=== PATIENT | female | born 1950 | race Caucasian/White ===

== ENCOUNTER 2016-05-27 20:07 | Inpatient (IN) ==
[2016-05-27 22:54] LABS: Basophils % 0.3 %; Eosinophils % 0.1 %; Hematocrit 44.5 % (35.3-44.9); Immature Granulocytes % 0.4 % (0-4); Immature Platelets 3.4 % (1.1-6.1); Lymphocytes # 0.6 K/mcL (0.6-4.6); Lymphocytes % 5.7 %; Mean Corpuscular HGB Conc 33.7 g/dL (31.6-35.5); Mean Corpuscular Hemoglobin 30.5 pg (28.0-33.3); Mean Corpuscular Volume 90.4 fL (83.0-100.0); Mean Platelet Volume 9.8 fL (9.4-12.4); Monocytes # 0.7 K/mcL (0.0-1.3); Monocytes % 6.4 %; Neutrophils # 9.4 K/mcL (1.6-8.9); Platelet Count 189 K/mcL (140-400); Red Blood Count 4.92 M/mcL (3.82-4.97); Red Cell Distribution Width 12.6 % (11.5-14.5); Segmented Neutrophils % 87.1 %
[2016-05-27 23:09] LABS: Alanine Aminotransferase 9 Units/L (0-55); Albumin 3.9 g/dL (3.5-5.0); Albumin/Globulin Ratio 1.1 (1.1-2.2); Alkaline Phosphatase 73 Units/L (38-126); Amylase 63 Units/L (25-125); Aspartate Amino Transferase 16 Units/L (5-34); BUN/Creatinine Ratio 28 (6-26); Bilirubin,Direct 0.5 mg/dL (0.0-0.5); Bilirubin,Total 1.5 mg/dL (0.2-1.2); Blood Urea Nitrogen 24 mg/dL (7-20); Calcium 10.4 mg/dL (8.6-10.8); Carbon Dioxide 26 mEq/L (19-29); Chloride 101 mEq/L (98-109); Globulin 3.4 g/dL (2.4-3.5); Glucose 136 mg/dL (70-99); Lipase 18 Units/L (8-78); Osmolality,Calculated 296 (280-300); Potassium 3.4 mEq/L (3.5-4.5); Sodium 140 mEq/L (136-145); Total Protein 7.3 g/dL (6.0-8.3); eGFR For African Americans > 60 (> 60); eGFR For Non-African Americans > 60 (> 60)
[2016-05-27 23:22] LABS: Bilirubin,Urine Moderate (Negative); Blood,Urine Negative (Negative); Clarity,Urine Cloudy (Clear); Color,Urine Dark Yellow (Yellow); Glucose,Urine (UA) Normal (Normal); Ketones,Urine 80 mg/dL (Negative); Leukocyte Esterase,Urine Moderate (Negative); Nitrite,Urine Negative (Negative); PH,Urine 6.5 pH Units (5.0-8.0); Protein,Urine 30 mg/dL (Neg-Trace); Specific Gravity,Urine > 1.030 (1.010-1.025); Urobilinogen,Urine Normal (Normal)
[2016-05-27 23:23] LABS: Bacteria,Urine None Seen per hpf (None-Few); Hyaline Casts,Urine Moderate per lpf (None-Few); Squamous Epithelial Cell,Urine Many per lpf (None-Few); WBC,Urine 30-50 per hpf (0-3)
[2016-05-27] MEDS ORDERED: *HR* Morphine 2 MG/ML SYRINGE IVP PRN (23:37)
[2016-05-27] MEDS ORDERED: Ondansetron 4 MG/2 ML VIAL IVP ONE (23:37)
[2016-05-27] MEDS ORDERED: 0.9 % Sodium Chloride 1,000 ML IVC ONE (23:37)
--- NOTE | 2016-05-27 23:41 | Emergency Department Note ---
Disposition Clinical Impression: Peristomal hernia, Small bowel obstruction Pulmonary embolism Qualifiers: Pulmonary embolism type: other Chronicity: unspecified Acute cor pulmonale presence: without acute cor pulmonale Qualified Code(s): I26.99 - Other pulmonary embolism without acute cor pulmonale Disposition: Admitted As Inpatient Condition: Fair Referrals: NO,PCP [Primary Care Provider] - Forms: Work/School Release, ED Satisfaction Letter Time of Disposition: 00:59 Abdominal Pain HPI - General Chief Complaint: ED Abdominal Pain Stated Complaint: abd pain, vomiting, no output from colostomy Time Seen by Provider: 05/27/16 23:24 Source: patient, family Nursing Notes Reviewed: Yes Vital Signs Reviewed: Yes - History of Present Illness HPI Narrative: 65-year-old nontoxic-appearing female presents for chief complaint of abdominal pain, nausea, and vomiting. The patient states symptoms began approximately 24 hours ago and has progressed in severity since. She states that she recently underwent a peristomal hernia repair by Dr. Rice 19 days ago. She states that along with the abdominal pain, nausea, and vomiting, she has had no output from her ostomy over the course of the past 24 hours. She does state that she has had a decreased oral intake. She states "I think I may be dehydrated". She complains of fever up to 101 degrees Fahrenheit. She rates her pain a 9 out of 10 on a 10 point scale and describes it as sharp in nature. This pain is localized to the area around her stoma. She also complains of abdominal swelling and distention to the area immediately surrounding her stoma. Pt Subjective Complaint: abdominal pain Onset (ago): hour(s) (24 hours ago) Consistency: constant Location: LLQ Pain Severity: severe Pain Scale: 9 Quality: cramping Radiation: none Migration to: no migration Improves with: nothing Worsens with: nothing Context: recent surgery/procedure Associated symptoms: Reports: nausea, vomiting, fever. Denies: diarrhea - Related Data Home Medications Medication Instructions Recorded Confirmed Acetaminophen [Tylenol] 1,000 mg PO Q6HR PRN 05/08/16 05/08/16 Atenolol [Tenormin] 50 mg PO DAILY 05/08/16 05/08/16 Ergocalciferol (VITAMIN D2) 50,000 unit PO TH 05/08/16 05/08/16 [Vitamin D2] Levothyroxine [Synthroid] 150 mcg PO DAILY 05/08/16 05/08/16 Lisinopril [Zestril] 10 mg PO DAILY 05/08/16 05/08/16 Pantoprazole Sodium [Protonix] 40 mg PO DAILY 05/08/16 05/08/16 Tramadol HCl [Ultram] 100 mg PO QID PRN 05/08/16 05/08/16 Previous Rx's Medication Instructions Recorded Docusate [Colace] 100 mg PO BID #30 capsule 05/09/16 HYDROcodone/Acet 5/325 mg [[place] 1 tab PO Q4H PRN #30 tab 05/09/16 5-325 mg] Allergies Allergy/AdvReac Type Severity Reaction Status Date / Time No Known Allergies Allergy Verified 05/08/16 11:03 Constitutional: Reports: as per HPI, fever. Denies: chills, weakness, weight change Eyes: Denies: eye pain, eye discharge, vision change ENT ED: Denies: ear pain, throat pain, dental pain, hearing loss, epistaxis, congestion, dysphagia Cardiovascular: Denies: chest pain, palpitations, dyspnea on exertion, edema, syncope Respiratory: Denies: cough, dyspnea, wheezes, hemoptysis, stridor Gastrointestinal: Reports: as per HPI, abdominal pain, nausea, vomiting. Denies : diarrhea, constipation, hematemesis, melena, hematochezia Genitourinary: Denies: dysuria, frequency, hematuria, discharge Musculoskeletal: Denies: back pain, neck pain, arthralgia, myalgia Integumentary: Denies: rash, abrasion, lesions Neurological: Denies: headache, weakness, numbness, paresthesias, confusion, abnormal gait, vertigo Psychiatric: Denies: anxiety, depression, suicidal thoughts, homicidal thoughts , auditory hallucinations, visual hallucinations Endocrine: Denies: fatigue Hematological/Lymphatic: Denies: easy bleeding, easy bruising Allergic/Immunologic: Denies: facial swelling, urticaria Abdominal Pain PMH - Past Medical History Medical history: Reports: cancer, hypertension Female Surgical History: Reports: colostomy, herniorrhaphy Psychiatric history: Reports: no psych history - Social History Smoking status: Never smoker Alcohol use: Reports: none Drug use: Reports: none Physical Exam - General Limitations: no limitations General appearance: alert, in no apparent distress - Head Head exam: atraumatic, normocephalic, normal inspection - Eye Eye exam: Present: normal appearance, PERRL, EOMI. Absent: nystagmus - ENT ENT exam: mucous membranes dry - Neck Neck exam: Present: normal inspection, full ROM, trachea midline - Chest Chest inspection: Present: normal inspection, symmetric chest wall rise - Respiratory Respiratory exam: Present: normal lung sounds bilaterally. Absent: respiratory distress, wheezes, stridor, accessory muscle use, prolonged expiratory phase - Cardiovascular Cardiovascular exam: Present: regular rate, normal rhythm, normal heart sounds - Abdominal Exam Abdominal exam: Present: soft, tenderness, distention (Moderate Abdominal distention noted to the left lower quadrant, surrounding and underlying the area of her colostomy), diminished bowel sounds. Absent: guarding, rebound, rigidity Abdominal tenderness: Present: LLQ - Extremities Exam Extremities exam: Present: normal inspection, full ROM. Absent: tenderness, pedal edema - Neurological Exam Neurological exam: Present: alert, oriented X3 - Psychiatric Psychiatric exam: Present: normal affect, normal mood - Skin Skin exam: Present: warm, dry, intact, normal color. Absent: rash, cyanosis, diaphoresis, erythema, pallor, mottled Course - Reevaluation(s) Reevaluation #1: I discussed this patient's case with Dr. Franco, general surgeon home demonstration agent. Dr. Franco recommends a placement of a nasogastric tube, the administration of weight dosed IV heparin, and admission to the hospitalist service. Time: 00:53 Vital Signs Temperature 97.9 F 05/27/16 20:10 Pulse Rate 108 05/27/16 20:10 Respiratory Rate 18 05/27/16 20:10 Blood Pressure 117/80 05/27/16 20:10 O2 Sat by Pulse Oximetry 98 05/27/16 20:10 Temperature 99.4 F 05/28/16 00:51 Pulse Rate 82 05/28/16 00:51 Respiratory Rate 16 05/28/16 00:51 Blood Pressure 154/82 05/28/16 00:51 O2 Sat by Pulse Oximetry 97 05/28/16 00:51 Oxygen Delivery Oxygen Delivery Room Air Abdominal Pain - Medical Records Medical records reviewed: Yes I reviewed the patient's medical records. - Lab Data Lab results reviewed: Yes I reviewed the patient's lab results. Lab results narrative: Laboratory Last Values WBC 10.8 K/mcL (4.3-11.1) 05/27/16 22:37 RBC 4.92 M/mcL (3.82-4.97) 05/27/16 22:37 Hgb 15.0 g/dL (11.5-15.4) 05/27/16 22:37 Hct 44.5 % (35.3-44.9) 05/27/16 22:37 MCV 90.4 fL (83.0-100.0) 05/27/16 22:37 MCH 30.5 pg (28.0-33.3) 05/27/16 22:37 MCHC 33.7 g/dL (31.6-35.5) 05/27/16 22:37 RDW 12.6 % (11.5-14.5) 05/27/16 22:37 Plt Count 189 K/mcL (140-400) 05/27/16 22:37 MPV 9.8 fL (9.4-12.4) 05/27/16 22:37 Immature Gran % 0.4 % (0-4) 05/27/16 22:37 Seg Neutrophils % 87.1 % 05/27/16 22:37 Lymphocytes % 5.7 % 05/27/16 22:37 Monocytes % 6.4 % 05/27/16 22:37 Eosinophils % 0.1 % 05/27/16 22:37 Basophils % 0.3 % 05/27/16 22:37 Neutrophils # 9.4 K/mcL (1.6-8.9) H 05/27/16 22:37 Lymphocytes # 0.6 K/mcL (0.6-4.6) 05/27/16 22:37 Monocytes # 0.7 K/mcL (0.0-1.3) 05/27/16 22:37 Eosinophils # 0.0 K/mcL (0.0-0.6) 05/27/16 22:37 Basophils # 0.0 K/mcL (0.0-0.2) 05/27/16 22:37 Immature Plt Fraction 3.4 % (1.1-6.1) 05/27/16 22:37 Sodium 140 mEq/L (136-145) 05/27/16 22:37 Potassium 3.4 mEq/L (3.5-4.5) L 05/27/16 22:37 Chloride 101 mEq/L (98-109) 05/27/16 22:37 Carbon Dioxide 26 mEq/L (19-29) 05/27/16 22:37 BUN 24 mg/dL (7-20) H 05/27/16 22:37 Creatinine 0.86 mg/dL (0.57-1.11) 05/27/16 22:37 Est GFR ( Amer) > 60 (> 60) 05/27/16 22:37 Est GFR (Non-Af Amer) > 60 (> 60) 05/27/16 22:37 BUN/Creatinine Ratio 28 (6-26) H 05/27/16 22:37 Glucose 136 mg/dL (70-99) H 05/27/16 22:37 Calculated Osmolality 296 (280-300) 05/27/16 22:37 Calcium 10.4 mg/dL (8.6-10.8) 05/27/16 22:37 Total Bilirubin 1.5 mg/dL (0.2-1.2) H 05/27/16 22:37 Direct Bilirubin 0.5 mg/dL (0.0-0.5) 05/27/16 22:37 Indirect Bilirubin 1.0 mg/dL (0.0-1.2) 05/27/16 22:37 AST 16 Units/L (5-34) 05/27/16 22:37 ALT 9 Units/L (0-55) 05/27/16 22:37 Alkaline Phosphatase 73 Units/L (38-126) 05/27/16 22:37 Serum Total Protein 7.3 g/dL (6.0-8.3) 05/27/16 22:37 Albumin 3.9 g/dL (3.5-5.0) 05/27/16 22:37 Globulin 3.4 g/dL (2.4-3.5) 05/27/16 22:37 Albumin/Globulin Ratio 1.1 (1.1-2.2) 05/27/16 22:37 Amylase 63 Units/L (25-125) 05/27/16 22:37 Lipase 18 Units/L (8-78) 05/27/16 22:37 Urine Color Dark Yellow (Yellow) 05/27/16 23:13 Urine Clarity Cloudy (Clear) A 05/27/16 23:13 Urine pH 6.5 pH Units (5.0-8.0) 05/27/16 23:13 Ur Specific [place] > 1.030 (1.010-1.025) H 05/27/16 23:13 Urine Protein 30 mg/dL (Neg-Trace) H 05/27/16 23:13 Urine Glucose (UA) Normal mg/dL (Normal) 05/27/16 23:13 Urine Ketones 80 mg/dL (Negative) H 05/27/16 23:13 Urine Blood Negative (Negative) 05/27/16 23:13 Urine Nitrite Negative (Negative) 05/27/16 23:13 Urine Bilirubin Moderate (Negative) H 05/27/16 23:13 Urine Urobilinogen Normal mg/dL (Normal) 05/27/16 23:13 Ur Leukocyte Esterase Moderate (Negative) H 05/27/16 23:13 Urine Microscopic RBC 3-5 per hpf (0-3) H 05/27/16 23:13 Urine Microscopic WBC 30-50 per hpf (0-3) H 05/27/16 23:13 Ur Squamous Epith Cells Many per lpf (None-Few) H 05/27/16 23:13 Urine Bacteria None Seen per hpf (None-Few) 05/27/16 23:13 Hyaline Casts Moderate per lpf (None-Few) H 05/27/16 23:13 Result diagrams: 05/27/16 22:37 05/27/16 22:37 Lab Results 05/27/16 05/27/16 05/27/16 Range/Units 22:37 22:37 23:13 WBC 10.8 (4.3-11.1) K/mcL RBC 4.92 (3.82-4.97) M/mcL Hgb 15.0 (11.5-15.4) g/dL Hct 44.5 (35.3-44.9) % MCV 90.4 (83.0-100.0) fL MCH 30.5 (28.0-33.3) pg MCHC 33.7 (31.6-35.5) g/dL RDW 12.6 (11.5-14.5) % Plt Count 189 (140-400) K/mcL MPV 9.8 (9.4-12.4) fL Immature Gran % 0.4 (0-4) % Seg Neutrophils % 87.1 % Lymphocytes % 5.7 % Monocytes % 6.4 % Eosinophils % 0.1 % Basophils % 0.3 % Neutrophils # 9.4 H (1.6-8.9) K/mcL Lymphocytes # 0.6 (0.6-4.6) K/mcL Monocytes # 0.7 (0.0-1.3) K/mcL Eosinophils # 0.0 (0.0-0.6) K/mcL Basophils # 0.0 (0.0-0.2) K/mcL Immature Plt Fraction 3.4 (1.1-6.1) % Sodium 140 (136-145) mEq/L Potassium 3.4 L (3.5-4.5) mEq/L Chloride 101 (98-109) mEq/L Carbon Dioxide 26 (19-29) mEq/L BUN 24 H (7-20) mg/dL Creatinine 0.86 (0.57-1.11) mg/dL Est GFR ( Amer) > 60 (> 60) Est GFR (Non-Af Amer) > 60 (> 60) BUN/Creatinine Ratio 28 H (6-26) Glucose 136 H (70-99) mg/dL Calculated Osmolality 296 (280-300) Calcium 10.4 (8.6-10.8) mg/dL Total Bilirubin 1.5 H (0.2-1.2) mg/dL Direct Bilirubin 0.5 (0.0-0.5) mg/dL Indirect Bilirubin 1.0 (0.0-1.2) mg/dL AST 16 (5-34) Units/L ALT 9 (0-55) Units/L Alkaline Phosphatase 73 (38-126) Units/L Serum Total Protein 7.3 (6.0-8.3) g/dL Albumin 3.9 (3.5-5.0) g/dL Globulin 3.4 (2.4-3.5) g/dL Albumin/Globulin Ratio 1.1 (1.1-2.2) Amylase 63 (25-125) Units/L Lipase 18 (8-78) Units/L Urine Color Dark Yellow (Yellow) Urine Clarity Cloudy A (Clear) Urine pH 6.5 (5.0-8.0) pH Units Ur Specific [place] > 1.030 H (1.010-1.025) Urine Protein 30 H (Neg-Trace) mg/dL Urine Glucose (UA) Normal (Normal) mg/dL Urine Ketones 80 H (Negative) mg/dL Urine Blood Negative (Negative) Urine Nitrite Negative (Negative) Urine Bilirubin Moderate H (Negative) Urine Urobilinogen Normal (Normal) mg/dL Ur Leukocyte Esterase Moderate H (Negative) Urine Microscopic RBC 3-5 H (0-3) per hpf Urine Microscopic WBC 30-50 H (0-3) per hpf Ur Squamous Epith Cells Many H (None-Few) per lpf Urine Bacteria None Seen (None-Few) per hpf Hyaline Casts Moderate H (None-Few) per lpf - Radiology Data Radiology results reviewed: Yes I reviewed the patient's radiology results. Abdomen/Pelvis CT 05/27/16 23:37 IMPRESSION: 1. Small bowel obstruction with the transition point in a parastomal hernia. Fluid in the hernia sac may indicate strangulation. 2. Right lower lobe pulmonary embolus, likely acute or very recent. 3. Coronary artery disease. 4. Thickening of the distal esophagus suggests esophagitis. Critical results were called by Dr. Jacob Jett MD to Miguel Noe on 05/28/2016 at 00:31. D/ / Jacob Jett MD / Jacob Jett MD Interpreting Provider: Jacob Jett MD
[2016-05-28] MEDS ORDERED: Tetracaine/Benzocaine/Butamben 200MG/SPRAY (100SPY/BOT) ONE (01:16)
[2016-05-28] MEDS ORDERED: *HR* Heparin 5,000 UNIT/ML VIAL IVP PRN ×2 (01:32)
[2016-05-28] MEDS ORDERED: *HR* Heparin 5,000 UNIT/ML VIAL IVP ONE (01:32)
[2016-05-28] MEDS ORDERED: *HR* HYDROmorphone (PF) 1 MG/ML SYRINGE IVP ONE (01:43)
[2016-05-28] MEDS ORDERED: Heparin 25,000 UNIT/500 ML D5W 25,000 UNIT/500 ML MLS IVC SCH (01:45)
[2016-05-28] MEDS ORDERED: *HR* HYDROcodone/Acet 5/325 mg TABLET PO PRN (02:33)
[2016-05-28] MEDS ORDERED: Potassium Chloride 40 MEQ, Lidocaine 1% 2 ML in D5% in Water 500 ML IVPB ONE (02:33)
[2016-05-28] MEDS ORDERED: Acetaminophen 325 MG TABLET PO PRN (02:33)
[2016-05-28] MEDS ORDERED: Naloxone 0.4 MG/ML INJ IVP PRN (02:33)
[2016-05-28] MEDS ORDERED: Ipratropium/Albuterol Neb 3 ML IH PRN (02:33)
[2016-05-28] MEDS ORDERED: Acetaminophen 650 MG RECTAL SUPP RC PRN (02:46)
[2016-05-28] MEDS ORDERED: *HR* Metoprolol 5 MG/5 ML VIAL IVP PRN (02:48)
--- NOTE | 2016-05-28 03:05 | Internal Med History&Physical ---
Date of Encounter: 05/28/16 Internal Medicine - H&P: HPI History of present illness: Ms. Rivers is a 65 year old female Past Med Surg Social Fam HX - Past Medical History Medical history: cancer, hypertension Psychiatric history: no psych history - Past Surgical History Surgical History: colostomy, hysterectomy - Social History Smoking Status: Never smoker Alcohol use: none Drug use: none Internal Medicine - H&P: Meds Acetaminophen [Tylenol] 1,000 mg PO Q6HR PRN 05/08/16 [History] Atenolol [Tenormin] 50 mg PO DAILY 05/08/16 [History] Ergocalciferol (VITAMIN D2) [Vitamin D2] 50,000 unit PO TH 05/08/16 [History] Levothyroxine [Synthroid] 150 mcg PO DAILY 05/08/16 [History] Lisinopril [Zestril] 10 mg PO DAILY 05/08/16 [History] Pantoprazole Sodium [Protonix] 40 mg PO DAILY 05/08/16 [History] Tramadol HCl [Ultram] 100 mg PO QID PRN 05/08/16 [History] Docusate [Colace] 100 mg PO BID #30 capsule 05/09/16 [Rx] HYDROcodone/Acet 5/325 mg [[place] 5-325 mg] 1 tab PO Q4H PRN #30 tab 05/09/16 [Rx ] Allergies No Known Allergies Allergy (Verified 05/08/16 11:03) All Systems PM: A 10-system review of systems was performed and is negative for pertinent findings except as documented above in the HPI. - Constitutional Vitals: Temp Pulse Resp BP Pulse Ox 99.4 F 82 16 133/91 97 05/28/16 00:51 05/28/16 00:51 05/28/16 02:56 05/28/16 02:56 05/28/16 00:51 Internal Med - H&P Results - Labs CBC & Chem 7: 05/27/16 22:37 05/27/16 22:37
[2016-05-28 03:16] LABS: INR 1.2; Prothrombin Time 12.9 Seconds (9.4-12.1)
[2016-05-28 03:18] LABS: Activated Partial Thrombo Time 30.4 Seconds (26.0-36.0)
--- NOTE | 2016-05-28 03:28 | Internal Med History&Physical ---
<Will Hurley - Last Filed: 05/28/16 03:37> Date of Encounter: 05/28/16 Time of Encounter: 02:30 Assessment and Plan (1) Postoperative intestinal obstruction Current visit: Yes Status: Acute As seen CT, obstruction seen at transition point of parastomal hernia Will consult surgery, appreciate management of post-op obstruction Support while NPO with maintenance IVF, analgesics, anti-emetics, and NGT Start prophylactic antibiotics with Cipro/Flagyl for enteric coverage (2) Pulmonary embolism Current visit: Yes Status: Acute Confirmed by CTA, which showed acute posterior basal segment right lower lobe PE Patient is hemodynamically stable and not requiring supplemental oxygen to maintenance saturations above 92% Will continue patient on Heparin drip while she is being considered by surgical team This is her second provoked PE/DVT, and 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 prior to discharge Qualifiers: Pulmonary embolism type: other Chronicity: unspecified Acute cor pulmonale presence: without acute cor pulmonale Qualified Code(s): I26.99 - Other pulmonary embolism without acute cor pulmonale (3) Hypokalemia Current visit: Yes Status: Acute Potassium of 3.4 upon admission, likely from GI losses Replace through IV while NPO Recheck BMP along with Mg, Phos in AM (4) Essential hypertension Current visit: No Status: Chronic Blood pressures stable since arrival to ED She does take both Lisinopril and Atenolol at home, which we will transition to IV Metoprolol and Vasotec once she is NPO (5) DVT prophylaxis Current visit: Yes Status: Acute Currently on Heparin ggt for PE Internal Medicine - H&P: HPI Chief complaint: abdominal pain, nausea, vomiting Admitted From: Home Plans for Post Hospital Care: Home History of present illness: Ms. Rivers is a 65 year old female who presents emergency department with abdominal pain, nausea, vomiting. She states that the symptoms have progressively worsened since approximately 24 hours prior to arrival. She states she had sharp left-sided abdominal pain near her colostomy when she first noticed it roughly week ago. She states the pain worsens when she gets up and is relieved with laying down. She also complains of nausea and had 6 episodes of black, nonbloody vomiting and fever of 101. Patient normally does not make any stool and reports no colostomy drainage over the past 24 hours, which is very unusual for her, although her appetite has been poor as of late. She recently had parastomal hernia repair on May 08 and had no complications immediately following surgery. 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 She had a colostomy placed back in 2011 and developed a DVT and PE shortly afterwards and was on Coumadin for a year. Patient currently denies any chest pain, shortness of breath, fever, chills or urinary complaints. Past Med Surg Social Fam HX - Past Medical History Medical history: cancer, hypertension Psychiatric history: no psych history - Past Surgical History Surgical History: colostomy, hysterectomy - Social History Smoking Status: Never smoker Alcohol use: none Drug use: none Internal Medicine - H&P: Meds Acetaminophen [Tylenol] 1,000 mg PO Q6HR PRN 05/08/16 [History] Atenolol [Tenormin] 50 mg PO DAILY 05/08/16 [History] Ergocalciferol (VITAMIN D2) [Vitamin D2] 50,000 unit PO TH 05/08/16 [History] Levothyroxine [Synthroid] 150 mcg PO DAILY 05/08/16 [History] Lisinopril [Zestril] 10 mg PO DAILY 05/08/16 [History] Pantoprazole Sodium [Protonix] 40 mg PO DAILY 05/08/16 [History] Tramadol HCl [Ultram] 100 mg PO QID PRN 05/08/16 [History] Docusate [Colace] 100 mg PO BID #30 capsule 05/09/16 [Rx] Allergies No Known Allergies Allergy (Verified 05/08/16 11:03) All Systems PM: A 10-system review of systems was performed and is negative for pertinent findings except as documented above in the HPI. - Constitutional Constitutional: anorexia, fever(s), no chills, no night sweats - EENT Eyes: no change in vision, no discharge, no pain, no photophobia Ears: no ear discharge, no ear pain, no tinnitus Nose, mouth and throat: no dysphagia, no nasal discharge, no neck pain, no sore throat - Cardiovascular Cardiovascular ROS IM: no chest pain, no diaphoresis, no dyspnea, no lightheadedness, no palpitations, no syncope - Respiratory Respiratory: no cough, no dyspnea, no wheezing, no excessive phlegm production - Gastrointestinal Gastrointestinal: abdominal pain, constipation, nausea, vomiting, no diarrhea, no hematemesis, no hematochezia, no melena - Genitourinary Genitourinary: no change in urinary stream, no dysuria, no flank pain, no hematuria - Musculoskeletal Musculoskeletal ROS IM: no numbness, no tingling - Integumentary Integumentary IM: no rash, no unusual bruising - Neurological Neurological ROS: no confusion, no convulsions, no focal weakness, no numbness, no tingling, no tremor(s) - Hematologic/Lymphatic Hematologic/Lymphatic: no easy bruising - Constitutional Vitals: Temp Pulse Resp BP Pulse Ox 99.4 F 82 16 133/91 97 05/28/16 00:51 05/28/16 00:51 05/28/16 02:56 05/28/16 02:56 05/28/16 00:51 General appearance: Present: cooperative, pleasant, no acute distress, answers questions appropriately - Head Head exam: Present: atraumatic, normocephalic - Eye Eye exam: Present: PERRL, conjuntiva pink, sclera anicteric - Neck Neck exam general surgery: Present: supple, trachea midline. Absent: lymphadenopathy - Respiratory Respiratory exam: Present: CTAB. Absent: accessory muscle use, rales, rhonchi, wheezes - Cardiovascular Cardiovascular exam: Present: RRR, +S1, +S2. Absent: diastolic murmur, gallop, rubs, systolic murmur - GI/Abdominal GI/Abdominal exam: Present: diminished bowel sounds, distended (in LLQ, near colostomy), hernia (parastomal hernia), normal bowel sounds, tenderness ( significant TTP near colostomy and RLQ), no peritoneal signs. Absent: guarding , rigid - Extremities Exam Extremities exam: Present: warm, radial pulses palpable and symetrical. Absent : calf tenderness, cyanotic, pedal edema - Neurological Exam Neurological exam: Present: alert, no focal deficits. Absent: facial droop, speech deficit - Skin Skin exam: Present: dry, intact Internal Med - H&P Results - Labs CBC & Chem 7: 05/27/16 22:37 05/27/16 22:37 <aJ Beebe - Last Filed: 05/29/16 03:08> Internal Medicine - H&P: HPI Admitted From: Home Plans for Post Hospital Care: Home History of present illness: Ms. Rivers is a 65 year old female status post recent parastomal abdominal hernia repair admitted to [facility] via the emergency department when she presents with complaints of acute onset of abdominal pain, nausea, vomiting of bilious emesis, fever of 101` and no output from ostomy over the course of 24 hours. The patient was visited and interviewed and examined. I examined this patient and my medical decision-making was reviewed with the Resident Physician. For this encounter, I have reviewed the documentation, treatment plan, and medical decision making. I agree with the documented findings, disposition and treatment plan as described except to the extent set forth below. Cumulative laboratory and radiographic database was reviewed, considered and discussed. Given the patient's presenting concerns, past medical history, clinical findings and symptoms, she is admitted at this time to undergo further evaluation and disposition. Past Med Surg Social Fam HX - Past Medical History Source: old records reviewed Medical history: cancer, GERD, hypertension, malignancy (Sigmoid colon carcinoma ), thyroid disease (Hypothyroidism) - Past Surgical History Surgical History: cancer surgery, colectomy (Partial colectomy for sigmoid colon cancer.), colostomy, hysterectomy, PEGGY/BSO (1997.), ureteral stent ( Cystoscopy with bilateral retrogrades and bilateral ureteral catheter/stent placements with open-ended ureteral catheters and Montiel catheter placement 2008. ), other (Surgery for twisted bowel 1969 and 1970. Colon resection 1982. Temporary colostomy 1983. Low anterior resection sigmoid colon carcinoma 2008. Resection of terminal ileum and anastomosis with creation of ileostomy 2011. Partial resection of mass 2008. Flexible sigmoidoscopy multiple biopsies 2008.) - Social History Smoking Status: Never smoker Alcohol use: none Drug use: none Occupational status: retired Current living situation: With Family Activity Level: Independent ambulation, Mostly sedentary Recent Out of Country Travel Within the Last 8 Weeks: No Exposure or Possible Exposure to Illness During Travel: No All Systems PM: A 10-system review of systems was performed and is negative for pertinent findings except as documented above in the HPI. - Constitutional Vitals: Temp Pulse Resp BP Pulse Ox 98.5 F 98 16 164/104 91 L 05/28/16 21:05 05/28/16 23:57 05/28/16 23:57 05/28/16 23:57 05/28/16 23:57 Internal Med - H&P Results - Labs CBC & Chem 7: 05/29/16 01:03 05/29/16 01:03 Labs: Short CBC 05/28/16 05/29/16 Range/Units 04:12 01:03 WBC 10.3 6.0 (4.3-11.1) K/mcL Hgb 13.4 D 11.8 D (11.5-15.4) g/dL Hct 40.8 35.9 (35.3-44.9) % Plt Count 180 122 L (140-400) K/mcL Neutrophils # 4.1 (1.6-8.9) K/mcL BMP 05/29/16 01:03 Sodium 139 Potassium 3.4 L Chloride 105 Carbon Dioxide 26 BUN 15 Creatinine 0.72 Glucose 93 Calcium 8.6 D Cardiac Enzymes 05/28/16 05/28/16 05/28/16 Range/Units 04:12 09:46 19:05 Troponin I 0.01 0.01 0.01 (0-0.03) ng/mL Vital Signs Temp Pulse Resp BP Pulse Ox 05/28/16 23:57 98 16 164/104 91 L 05/28/16 21:05 98.5 F 83 20 137/85 90 L 05/28/16 20:00 96 05/28/16 17:41 97.8 F 93 16 137/84 96 05/28/16 17:28 97.8 F 93 16 141/99 96 05/28/16 17:00 97.8 F 93 16 139/90 96 05/28/16 15:19 98.6 F 89 18 137/85 95 05/28/16 12:04 988 F H 90 18 137/83 97 05/28/16 08:00 93 L 05/28/16 07:00 98.1 F 72 16 127/68 96 05/28/16 03:31 98.6 F 90 17 145/93 93 L Intake and Output 05/28/16 05/28/16 05/29/16 15:59 23:59 07:59 Intake Total 972 / 972 1125 / 1125 Output Total 600 / 600 500 / 500 Balance 372 / 372 625 / 625 Intake: IV Fluids 972 / 972 1125 / 1125 25 / 25 Heparin 25,000 UNIT/500 150 / 150 125 / 125 25 / 25 ML D5W 25,000 unit In 500 ml @ 14 UNIT/KG/HR 20. 321 mls/hr IVC .Q24H [facility] Rx#:[id number] Lactated Ringers 1,000 ML 1000 / 1000 @ 125 mls/hr IVC .Q8H [facility] Rx#:[id number] Cipro 400 MG/200 ML 400 200 / 200 mg In 200 ml @ 200 mls/hr IVPB Q12HR [facility] Rx#: [id number] Flagyl 500 MG/100 ML 500 100 / 100 mg In 100 ml @ 100 mls/hr IVPB Q6HR [facility] Rx#: [id number] KCl 40 MEQ Xylocaine 2 ML 522 / 522 In Dextrose 5% 500 ML @ 130.5 mls/hr IVPB ONCE ONE Rx#:[id number] Oral 0 / 0 Output: Urine 200 / 200 500 / 500 Gastric Tube Lavage 400 / 400 Amount Left Nare 400 / 400 Other: # Voids 0 Allergies Allergy/AdvReac Type Severity Reaction Status Date / Time No Known Allergies Allergy Verified 05/08/16 11:03 - Impressions ITS Impressions Chest X-Ray 05/28/16 02:42 IMPRESSION: Nasogastric tube tip overlies the gastric fundus, with side hole near the gastroesophageal junction. Advancement is suggested. D/ / Patrick Bowie MD / Patrick Bowie MD Interpreting Provider: Patrick Bowie MD X-Ray 05/28/16 06:28 IMPRESSION: The enteric tube lies within the stomach with the tip directed towards the fundus and the side-port at the level of the cardia, this should be redirected distally and advanced. D/ / 05/28/2016 08:07:15 Delfino Mar MD / jovana Interpreting Provider: Delfino Mar MD X-Ray 05/28/16 08:50 IMPRESSION: Unchanged position of the nasogastric tube, as discussed D/ / Marbin King MD / Marbin King MD Interpreting Provider: Marbin King MD Abnormal lab results Plt Count 122 K/mcL (140-400) L 05/29/16 01:03 PT 12.5 Seconds (9.4-12.1) H 05/29/16 01:03 APTT 57.7 Seconds (26.0-36.0) H 05/29/16 01:03 Potassium 3.4 mEq/L (3.5-4.5) L 05/29/16 01:03 Total Bilirubin 1.5 mg/dL (0.2-1.2) H 05/27/16 22:37 C-Reactive Protein 19 mg/L (Less than 5) H 05/28/16 04:12 Urine Clarity Cloudy (Clear) A 05/27/16 23:13 Ur Specific [place] > 1.030 (1.010-1.025) H 05/27/16 23:13 Urine Protein 30 mg/dL (Neg-Trace) H 05/27/16 23:13 Urine Ketones 80 mg/dL (Negative) H 05/27/16 23:13 Urine Bilirubin Moderate (Negative) H 05/27/16 23:13 Ur Leukocyte Esterase Moderate (Negative) H 05/27/16 23:13 Urine Microscopic RBC 3-5 per hpf (0-3) H 05/27/16 23:13 Urine Microscopic WBC 30-50 per hpf (0-3) H 05/27/16 23:13 Ur Squamous Epith Cells Many per lpf (None-Few) H 05/27/16 23:13 Hyaline Casts Moderate per lpf (None-Few) H 05/27/16 23:13 Laboratory Last Values WBC 6.0 K/mcL (4.3-11.1) 05/29/16 01:03 RBC 3.84 M/mcL (3.82-4.97) 05/29/16 01:03 Hgb 11.8 g/dL (11.5-15.4) D 05/29/16 01:03 Hct 35.9 % (35.3-44.9) 05/29/16 01:03 MCV 93.5 fL (83.0-100.0) 05/29/16 01:03 MCH 30.7 pg (28.0-33.3) 05/29/16 01:03 MCHC 32.9 g/dL (31.6-35.5) 05/29/16 01:03 RDW 12.8 % (11.5-14.5) 05/29/16 01:03 Plt Count 122 K/mcL (140-400) L 05/29/16 01:03 MPV 9.7 fL (9.4-12.4) 05/29/16 01:03 Immature Gran % 0.5 % (0-4) 05/29/16 01:03 Seg Neutrophils % 69.4 % 05/29/16 01:03 Lymphocytes % 11.6 % 05/29/16 01:03 Monocytes % 9.6 % 05/29/16 01:03 Eosinophils % 8.4 % 05/29/16 01:03 Basophils % 0.5 % 05/29/16 01:03 Neutrophils # 4.1 K/mcL (1.6-8.9) 05/29/16 01:03 Lymphocytes # 0.7 K/mcL (0.6-4.6) 05/29/16 01:03 Monocytes # 0.6 K/mcL (0.0-1.3) 05/29/16 01:03 Eosinophils # 0.5 K/mcL (0.0-0.6) 05/29/16 01:03 Basophils # 0.0 K/mcL (0.0-0.2) 05/29/16 01:03 Immature Plt Fraction 3.4 % (1.1-6.1) 05/27/16 22:37 ESR 15 mm/hr (0-15) 05/28/16 04:12 PT 12.5 Seconds (9.4-12.1) H 05/29/16 01:03 INR 1.2 05/29/16 01:03 APTT 57.7 Seconds (26.0-36.0) H 05/29/16 01:03 Sodium 139 mEq/L (136-145) 05/29/16 01:03 Potassium 3.4 mEq/L (3.5-4.5) L 05/29/16 01:03 Chloride 105 mEq/L (98-109) 05/29/16 01:03 Carbon Dioxide 26 mEq/L (19-29) 05/29/16 01:03 BUN 15 mg/dL (7-20) 05/29/16 01:03 Creatinine 0.72 mg/dL (0.57-1.11) 05/29/16 01:03 Est GFR ( Amer) > 60 (> 60) 05/29/16 01:03 Est GFR (Non-Af Amer) > 60 (> 60) 05/29/16 01:03 BUN/Creatinine Ratio 21 (6-26) 05/29/16 01:03 Glucose 93 mg/dL (70-99) 05/29/16 01:03 Est Mean Plasma Glucose 108 mg/dl 05/28/16 04:12 Hemoglobin A1c 5.4 % (-5.6) 05/28/16 04:12 Calculated Osmolality 289 (280-300) 05/29/16 01:03 Lactic Acid 1.4 mmol/L (0.5-2.2) 05/28/16 04:12 Calcium 8.6 mg/dL (8.6-10.8) D 05/29/16 01:03 Phosphorus 3.2 mg/dL (2.3-4.7) 05/28/16 04:12 Magnesium 1.7 mg/dL (1.6-2.6) 05/28/16 04:12 Total Bilirubin 1.5 mg/dL (0.2-1.2) H 05/27/16 22:37 Direct Bilirubin 0.5 mg/dL (0.0-0.5) 05/27/16 22:37 Indirect Bilirubin 1.0 mg/dL (0.0-1.2) 05/27/16 22:37 AST 16 Units/L (5-34) 05/27/16 22:37 ALT 9 Units/L (0-55) 05/27/16 22:37 Alkaline Phosphatase 73 Units/L (38-126) 05/27/16 22:37 Troponin I 0.01 ng/mL (0-0.03) 05/28/16 19:05 C-Reactive Protein 19 mg/L (Less than 5) H 05/28/16 04:12 Serum Total Protein 7.3 g/dL (6.0-8.3) 05/27/16 22:37 Albumin 3.9 g/dL (3.5-5.0) 05/27/16 22:37 Globulin 3.4 g/dL (2.4-3.5) 05/27/16 22:37 Albumin/Globulin Ratio 1.1 (1.1-2.2) 05/27/16 22:37 Amylase 63 Units/L (25-125) 05/27/16 22:37 Lipase 18 Units/L (8-78) 05/27/16 22:37 TSH 0.427 mcIU/mL (0.350-4.840) 05/28/16 04:12 Urine Color Dark Yellow (Yellow) 05/27/16 23:13 Urine Clarity Cloudy (Clear) A 05/27/16 23:13 Urine pH 6.5 pH Units (5.0-8.0) 05/27/16 23:13 Ur Specific [place] > 1.030 (1.010-1.025) H 05/27/16 23:13 Urine Protein 30 mg/dL (Neg-Trace) H 05/27/16 23:13 Urine Glucose (UA) Normal mg/dL (Normal) 05/27/16 23:13 Urine Ketones 80 mg/dL (Negative) H 05/27/16 23:13 Urine Blood Negative (Negative) 05/27/16 23:13 Urine Nitrite Negative (Negative) 05/27/16 23:13 Urine Bilirubin Moderate (Negative) H 05/27/16 23:13 Urine Urobilinogen Normal mg/dL (Normal) 05/27/16 23:13 Ur Leukocyte Esterase Moderate (Negative) H 05/27/16 23:13 Urine Microscopic RBC 3-5 per hpf (0-3) H 05/27/16 23:13 Urine Microscopic WBC 30-50 per hpf (0-3) H 05/27/16 23:13 Ur Squamous Epith Cells Many per lpf (None-Few) H 05/27/16 23:13 Urine Bacteria None Seen per hpf (None-Few) 05/27/16 23:13 Hyaline Casts Moderate per lpf (None-Few) H 05/27/16 23:13 - Attending Attestation My signature below is to certify that this patient is under my care and that I, or the Resident Physician working with me, has had a [id number] encounter with this patient. Plan of care has been reviewed and discussed in detail with the patient. Questions addressed. Advanced care directive discussion briefly addressed. Patient is not declaring any healthcare restrictions at this time. Outpatient medication schedules will be reviewed, confirmed and facilitated as appropriate. Reconciliation of home treatments including adjustments, substitutions and reintroduction into treatment regimen will address necessary maintenance therapies for chronic pre-existing medical conditions. Hospital course dictated by clinical findings, treatment response had potential consultative interventions. The patient is at risk for further acute clinical decline and morbidity given this presenting chief complaint, findings and associated comorbidities. Condition is serious. Prognosis is guarded. CODE STATUS is full.
[2016-05-28 04:29] LABS: Hematocrit 40.8 % (35.3-44.9); Mean Corpuscular HGB Conc 32.8 g/dL (31.6-35.5); Mean Corpuscular Volume 91.3 fL (83.0-100.0); Platelet Count 180 K/mcL (140-400); Red Blood Count 4.47 M/mcL (3.82-4.97); Red Cell Distribution Width 12.9 % (11.5-14.5)
[2016-05-28] MEDS: *HR* HYDROmorphone (PF) 1 MG/ML SYRINGE IVP PRN ×7 (04:33→23:47)
[2016-05-28 04:36] LABS: Hemoglobin 13.4 g/dL (11.5-15.4)
[2016-05-28 04:37] LABS: INR 1.2; Prothrombin Time 12.9 Seconds (9.4-12.1)
[2016-05-28 04:47] LABS: Hemoglobin A1C 5.4 %
[2016-05-28 04:50] LABS: Magnesium 1.7 mg/dL (1.6-2.6); Phosphorous 3.2 mg/dL (2.3-4.7)
[2016-05-28 05:13] LABS: Thyroid Stimulating Hormone 0.427 mcIU/mL (0.350-4.840)
[2016-05-28] MEDS: *HR* Metoprolol 5 MG/5 ML VIAL IVP SCH ×4 (05:25→23:46)
[2016-05-28] MEDS: MetroNIDAZOLE 500 MG/100 ML 500 MG/100 ML BAG IVPB SCH ×4 (06:00→23:46)
[2016-05-28] MEDS: Pantoprazole 40 MG VIAL IVP SCH (08:57)
[2016-05-28] MEDS: Levothyroxine Sodium 100 MCG VIAL IVP SCH (08:57)
[2016-05-28] MEDS: *HR* Promethazine 25 MG/ML VIAL IVP PRN (09:58)
--- NOTE | 2016-05-28 09:59 | General Surgery Consult Note ---
Date of Encounter: 05/28/16 Time of Encounter: 09:00 Assessment and Plan (1) Partial small bowel obstruction Current Visit: Yes Status: Acute Bowel rest with NG tube to LIWS IV fluids Serial abdominal exams Supportive care/pain control (2) Peristomal hernia Current Visit: Yes Status: Acute Bowel rest with NG tube decompression IV fluids (3) UTI (urinary tract infection) Current Visit: Yes Status: Acute culture ordered patient currently on cipro and flagyl Qualifiers: Urinary tract infection type: site unspecified Hematuria presence: without hematuria Qualified Code(s): N39.0 - Urinary tract infection, site not specified (4) Pulmonary embolism Current Visit: Yes Status: Acute Management per hospitalist: Confirmed by CTA, which showed acute posterior basal segment right lower lobe PE Patient is hemodynamically stable and not requiring supplemental oxygen to maintenance saturations above 92% Will continue patient on Heparin drip while she is being considered by surgical team This is her second provoked PE/DVT, and she may need to be started on skilled nursing anticoagulation prior to discharge Qualifiers: Pulmonary embolism type: other Chronicity: unspecified Acute cor pulmonale presence: without acute cor pulmonale Qualified Code(s): I26.99 - Other pulmonary embolism without acute cor pulmonale History of Present Illness Consult date: 05/28/16 Requesting physician: Khadra Alan History of present illness: Mrs. Rivers is a very pleasant 65 year old female who is recently s/p peristomal hernia repair with Dr. Rice on 05/09/16. She states that she was recovering well from surgery up until 2 days ago when she began having increasing pain and swelling around her colostomy. She states that she stopped moving flatus through her colostomy and has not had any bowel movements since 2pm on Friday. She states that the pain was followed by multiple episodes of nausea/vomiting. Her emesis was bilious. Denies any hematemesis or coffee ground emesis. Admits to fevers up to 101 degrees. Admits to having symptoms of increasing reflux. Denies any shortness of breath of chest pains. Denies having a cough. Denies any strain on her abdominal wall since surgery. Denies any dysuria, frequency of urgency with urination. We have been asked to see and evaluate the patient for surgical recommendations. Past Med Surg Social Fam HX - Past Medical History Source: patient, old records reviewed Medical history: cancer (colon), hypertension, pulmonary embolus Psychiatric history: no psych history - Past Surgical History Surgical History: cancer surgery (LAR 2008), colostomy, hysterectomy, other ( Surgery for bowel obstruction 1969 and 1970; colon resection 1982; temporary colostomy 1983; resection of terminal ileum and anastomisis with creation of ileostomy 2011; Bilateral ureteral stents) - Social History Smoking Status: Never smoker Alcohol use: none Drug use: none Current living situation: Home - Independent Activity Level: Independent ambulation - Family History Mother Living Status: Hx Family Cardiac Disorders: Yes (AR) Hx Family Respiratory Disorders: No Hx Family Cancer: No Hx Family GI Disorders: No Hx Family Genitourinary Disorders: No Hx Family Endocrine Disorder: Yes (DM) Hx Family Musculoskeletal Disorders: No Hx Family Neuromuscular Disorders: No Hx Family Neurologic Disorders: Yes (CVA) Hx Family HEENT Disorders: No Hx Family Autoimmune Disorders: No Hx Family Reproductive Disorders: No Hx Family Psychosocial Disorders: No Hx Family Medical Disorders: No Father Living Status: Hx Family Cardiac Disorders: No Hx Family Respiratory Disorders: No Hx Family Cancer: No Hx Family GI Disorders: No Hx Family Genitourinary Disorders: No Hx Family Endocrine Disorder: No Hx Family Musculoskeletal Disorders: No Hx Family Neuromuscular Disorders: No Hx Family Neurologic Disorders: Yes (CVA) Hx Family HEENT Disorders: No Hx Family Autoimmune Disorders: No Hx Family Reproductive Disorders: No Hx Family Psychosocial Disorders: No Hx Family Medical Disorders: No Sister Living Status: Still Living Hx Family Cardiac Disorders: No Hx Family Respiratory Disorders: No Hx Family Cancer: No Hx Family GI Disorders: No Hx Family Genitourinary Disorders: Yes Hx Family Endocrine Disorder: No Hx Family Musculoskeletal Disorders: Yes Hx Family Neuromuscular Disorders: No Hx Family Neurologic Disorders: No Hx Family HEENT Disorders: No Hx Family Autoimmune Disorders: No Hx Family Reproductive Disorders: No Hx Family Psychosocial Disorders: No Hx Family Medical Disorders: No Medications and Allergies Acetaminophen [Tylenol] 1,000 mg PO Q6HR PRN 05/08/16 [History] Atenolol [Tenormin] 50 mg PO DAILY 05/08/16 [History] Ergocalciferol (VITAMIN D2) [Vitamin D2] 50,000 unit PO TH 05/08/16 [History] Levothyroxine [Synthroid] 150 mcg PO DAILY 05/08/16 [History] Lisinopril [Zestril] 10 mg PO DAILY 05/08/16 [History] Pantoprazole Sodium [Protonix] 40 mg PO DAILY 05/08/16 [History] Tramadol HCl [Ultram] 100 mg PO QID PRN 05/08/16 [History] Docusate [Colace] 100 mg PO BID #30 capsule 05/09/16 [Rx] Allergies No Known Allergies Allergy (Verified 05/08/16 11:03) Review of Systems All systems PM: reviewed and no additional remarkable complaints except as stated (in the HPI) All systems PM: A 10-system review of systems was performed and is negative for pertinent findings except as documented above in the HPI. General Surgery Exam Initial Vital Signs Temp Pulse Resp BP Pulse Ox 97.9 F 108 18 117/80 98 05/27/16 20:10 05/27/16 20:10 05/27/16 20:10 05/27/16 20:10 05/27/16 20:10 - General physical appearance well developed, well nourished, moderate pain - Eyes normal ocular movement - ENT normal mucosa, atraumatic, normocephalic - Neck trachea midline - Respiratory normal respiratory effort, clear to auscultation - Cardiovascular Cardiovascular exam: Present: RRR, 15, 16 - Abdomen Abdomen general surgery: Present: bowel sounds present, soft, tender ( moderately tender) Abdominal Tenderness: Present: LUQ, LLQ Hernia: Present: incarcerated (peristomal) - Incision Incision: Present: clean and dry, intact - Integumentary Integumentary general surgery: Present: warm and dry - Neurologic Present: CN 2-12 grossly intact - Psychiatric Psychiatric general surgery: Present: appropriate, oriented to person, oriented to place, oriented to time, speech is normal, memory intact Exam Initial Vital Signs Temp Pulse Resp BP Pulse Ox 97.9 F 108 18 117/80 98 05/27/16 20:10 05/27/16 20:10 05/27/16 20:10 05/27/16 20:10 05/27/16 20:10 Results - Labs 05/29/16 01:03 05/29/16 01:03 Abnormal lab results Neutrophils # 9.4 K/mcL (1.6-8.9) H 05/27/16 22:37 PT 12.9 Seconds (9.4-12.1) H 05/28/16 04:12 Potassium 3.4 mEq/L (3.5-4.5) L 05/27/16 22:37 BUN 24 mg/dL (7-20) H 05/27/16 22:37 BUN/Creatinine Ratio 28 (6-26) H 05/27/16 22:37 Glucose 136 mg/dL (70-99) H 05/27/16 22:37 Total Bilirubin 1.5 mg/dL (0.2-1.2) H 05/27/16 22:37 C-Reactive Protein 19 mg/L (Less than 5) H 05/28/16 04:12 Urine Clarity Cloudy (Clear) A 05/27/16 23:13 Ur Specific Novinger > 1.030 (1.010-1.025) H 05/27/16 23:13 Urine Protein 30 mg/dL (Neg-Trace) H 05/27/16 23:13 Urine Ketones 80 mg/dL (Negative) H 05/27/16 23:13 Urine Bilirubin Moderate (Negative) H 05/27/16 23:13 Ur Leukocyte Esterase Moderate (Negative) H 05/27/16 23:13 Urine Microscopic RBC 3-5 per hpf (0-3) H 05/27/16 23:13 Urine Microscopic WBC 30-50 per hpf (0-3) H 05/27/16 23:13 Ur Squamous Epith Cells Many per lpf (None-Few) H 05/27/16 23:13 Hyaline Casts Moderate per lpf (None-Few) H 05/27/16 23:13 Diabetes panel 05/28/16 Range/Units 04:12 Hemoglobin A1c 5.4 ( - 5.6) % Thyroid panel 05/28/16 Range/Units 04:12 TSH 0.427 (0.350-4.840) mcIU/mL Calcium panel 05/28/16 Range/Units 04:12 Phosphorus 3.2 (2.3-4.7) mg/dL Pituitary panel 05/28/16 Range/Units 04:12 TSH 0.427 (0.350-4.840) mcIU/mL All other labs normal. - Imaging CT scan - abdomen: report reviewed CT scan - pelvis: report reviewed Additional studies: Abdomen/Pelvis CT 05/27/16 23:37 IMPRESSION: 1. Small bowel obstruction with the transition point in a parastomal hernia. Fluid in the hernia sac may indicate strangulation. 2. Right lower lobe pulmonary embolus, likely acute or very recent. 3. Coronary artery disease. 4. Thickening of the distal esophagus suggests esophagitis. Critical results were called by Dr. Jacob Jett MD to Miguel Noe on 05/28/2016 at 00:31. D/ / Jacob Jett MD / Jacob Jett MD Interpreting Provider: Jacob Jett MD Chest CTA 05/28/16 00:44 IMPRESSION: 1. Acute segmental/subsegmental posterior basal segment right lower lobe pulmonary embolus. 2. No CT evidence of right heart strain. 3. Patchy ground-glass opacity in the lateral right upper lobe consistent with acute infectious or inflammatory small airway disease. 4. Small hiatal hernia. Findings were discussed with Miguel Noe at 1:46 am on 05/28/2016. D/ / Edwin Fish MD / Edwin Fish MD Interpreting Provider: Edwin Fish MD Chest X-Ray 05/28/16 02:42 IMPRESSION: Nasogastric tube tip overlies the gastric fundus, with side hole near the gastroesophageal junction. Advancement is suggested. D/ / Patrick Bowie MD / Patrick Bowie MD Interpreting Provider: Patrick Bowie MD X-Ray 05/28/16 08:50 IMPRESSION: Unchanged position of the nasogastric tube, as discussed D/ / Marbin King MD / Marbin King MD Interpreting Provider: Marbin King MD Consult Discharge Plan - Plan Referrals: NO,PCP [Non-Partnered Physician] - - Attending Attestation I examined this patient and my medical decision-making was reviewed with the WELDING TESTER/PA/Advanced Practice Nurse/Resident Physician. I agree with the documented findings, disposition and treatment plan as described except to the extent set forth below.
[2016-05-28] MEDS: Ringers Solution, Lactated 1,000 ML IVC SCH ×3 (10:07→18:39)
[2016-05-28] MEDS ORDERED: Chloraseptic Spray 177 ML BOTTLE MM PRN (16:35)
[2016-05-28] MEDS ORDERED: *HR* Midazolam HCl 5 MG/5 ML VIAL IVP ONE (16:36)
[2016-05-28] MEDS ORDERED: *HR* FentaNYL (PF) 100 MCG/2 ML VIAL IVP ONE (16:38)
[2016-05-28] MEDS: Ondansetron 4 MG/2 ML VIAL IVP PRN (16:59)
[2016-05-28] MEDS ORDERED: *HR* Midazolam HCl 2 MG/2 ML VIAL IVP ONE (17:00)
--- NOTE | 2016-05-28 17:48 | Internal Med Progress Note ---
Date of Encounter: 05/28/16 Time of Encounter: 10:00 - Assessment and plan (1) DVT prophylaxis Current Visit: Yes Status: Acute Assessment and plan: Patient is on heparin drip (2) Peristomal hernia Current Visit: Yes Status: Acute Assessment and plan: NG tube for decompression, nothing by mouth, IV fluid. Surgical consult is on case (3) Postoperative intestinal obstruction Current Visit: Yes Status: Acute Assessment and plan: Continue nothing by mouth and IV fluid. Continue NG tube with low pressure suctioning for decompression. Surgical consult. (4) Pulmonary embolism Current Visit: Yes Status: Acute Assessment and plan: Continue heparin drip. Discussed with patient this morning, she would like to have Coumadin for long-term anticoagulation. We will switch to Coumadin if patient does not need a surgical procedure. Patient is at high risk because she is on heparin drip, need close monitoring. Qualifiers: Pulmonary embolism type: other Chronicity: unspecified Acute cor pulmonale presence: without acute cor pulmonale Qualified Code(s): I26.99 - Other pulmonary embolism without acute cor pulmonale (5) Hypothyroidism Current Visit: No Status: Acute Assessment and plan: Stable. No medication now because patient is on nothing by mouth Qualifiers: Hypothyroidism type: unspecified Qualified Code(s): E03.9 - Hypothyroidism , unspecified (6) Essential hypertension Current Visit: No Status: Chronic Assessment and plan: BP is stable. Medications on hold because of nothing by mouth - Time Spent With Patient Greater than 35 minutes - Subjective Interval history: Patient is a 65-year-old female admitted for small bowel obstruction after surgery. Her past medical history is significant for colon cancer, hypertension , and DVT and PE. On this admission, she was also found acute PE. Patient was seen and examined. She was lighth sedated when I saw her. Patient is on NG tube with low intermittent suction per surgical consult. Still has no stool in colostomy bag. Surgical consult appreciated and the recommendation will be followed. We will continue heparin drip for the acute PE. - Constitutional Vitals: Temp Pulse Resp BP Pulse Ox 97.8 F 93 16 137/84 96 05/28/16 17:41 05/28/16 17:41 05/28/16 17:41 05/28/16 17:41 05/28/16 17:41 General appearance: Present: cooperative, pleasant, no acute distress, answers questions appropriately - Head Head exam: Present: atraumatic, normocephalic - Eye Eye exam: Present: PERRL, conjuntiva pink, sclera anicteric Pupils: Present: PERRL - Neck Neck exam general surgery: Present: supple, trachea midline. Absent: lymphadenopathy - Respiratory Respiratory exam: Present: CTAB. Absent: accessory muscle use, rales, rhonchi, wheezes - Cardiovascular Cardiovascular exam: Present: RRR, +S1, +S2. Absent: diastolic murmur, gallop, rubs, systolic murmur - GI/Abdominal GI/Abdominal exam: Present: normal bowel sounds, soft, tenderness, no peritoneal signs. Absent: distended - Extremities Exam Extremities exam: Present: warm, radial pulses palpable and symetrical. Absent : calf tenderness, cyanotic, pedal edema - Neurological Exam Neurological exam: Present: CN II-XII intact, oriented X3, no focal deficits. Absent: pronater drift, facial droop, speech deficit - Skin Skin exam: Present: dry, intact Internal Medicine: Result - Labs CBC & Chem 7: 05/28/16 04:12 05/27/16 22:37 Labs: Short CBC 05/28/16 Range/Units 04:12 WBC 10.3 (4.3-11.1) K/mcL Hgb 13.4 D (11.5-15.4) g/dL Hct 40.8 (35.3-44.9) % Plt Count 180 (140-400) K/mcL Cardiac Enzymes 05/28/16 05/28/16 Range/Units 04:12 09:46 Troponin I 0.01 0.01 (0-0.03) ng/mL - ABG Interpretation ABG results: PT/INR, D-dimer PT 12.9 Seconds (9.4-12.1) H 05/28/16 04:12 - Impressions Impressions Chest X-Ray 05/28/16 02:42 IMPRESSION: Nasogastric tube tip overlies the gastric fundus, with side hole near the gastroesophageal junction. Advancement is suggested. D/ / Patrick Bowie MD / Patrick Bowie MD Interpreting Provider: Patrick Bowie MD X-Ray 05/28/16 06:28 IMPRESSION: The enteric tube lies within the stomach with the tip directed towards the fundus and the side-port at the level of the cardia, this should be redirected distally and advanced. D/ / 05/28/2016 08:07:15 Delfino Mar MD / jovana Interpreting Provider: Delfino Mar MD X-Ray 05/28/16 08:50 IMPRESSION: Unchanged position of the nasogastric tube, as discussed D/ / Marbin King MD / Marbin King MD Interpreting Provider: Marbin King MD Consult Discharge Plan - Plan Referrals: NO,PCP [Non-Partnered Physician] -
[2016-05-29 01:19] LABS: Basophils % 0.5 %; Eosinophils # 0.5 K/mcL (0.0-0.6); Eosinophils % 8.4 %; Hematocrit 35.9 % (35.3-44.9); Hemoglobin 11.8 g/dL (11.5-15.4); Immature Granulocytes % 0.5 % (0-4); Lymphocytes # 0.7 K/mcL (0.6-4.6); Lymphocytes % 11.6 %; Mean Corpuscular HGB Conc 32.9 g/dL (31.6-35.5); Mean Corpuscular Hemoglobin 30.7 pg (28.0-33.3); Mean Corpuscular Volume 93.5 fL (83.0-100.0); Mean Platelet Volume 9.7 fL (9.4-12.4); Monocytes # 0.6 K/mcL (0.0-1.3); Monocytes % 9.6 %; Neutrophils # 4.1 K/mcL (1.6-8.9); Platelet Count 122 K/mcL (140-400); Red Blood Count 3.84 M/mcL (3.82-4.97); Red Cell Distribution Width 12.8 % (11.5-14.5); Segmented Neutrophils % 69.4 %
[2016-05-29 01:26] LABS: INR 1.2; Prothrombin Time 12.5 Seconds (9.4-12.1)
[2016-05-29 01:29] LABS: Activated Partial Thrombo Time 57.7 Seconds (26.0-36.0)
[2016-05-29 01:31] LABS: BUN/Creatinine Ratio 21 (6-26); Blood Urea Nitrogen 15 mg/dL (7-20); Carbon Dioxide 26 mEq/L (19-29); Chloride 105 mEq/L (98-109); Glucose 93 mg/dL (70-99); Osmolality,Calculated 289 (280-300); Potassium 3.4 mEq/L (3.5-4.5); Sodium 139 mEq/L (136-145); eGFR For African Americans > 60 (> 60); eGFR For Non-African Americans > 60 (> 60)
[2016-05-29 01:33] LABS: Calcium 8.6 mg/dL (8.6-10.8)
[2016-05-29] MEDS: *HR* HYDROmorphone (PF) 1 MG/ML SYRINGE IVP PRN ×7 (01:59→19:16)
[2016-05-29] MEDS: Ringers Solution, Lactated 1,000 ML IVC SCH ×2 (03:00→13:05)
[2016-05-29] MEDS: MetroNIDAZOLE 500 MG/100 ML 500 MG/100 ML BAG IVPB SCH ×3 (05:09→23:24)
[2016-05-29] MEDS: *HR* Metoprolol 5 MG/5 ML VIAL IVP SCH ×3 (05:10→23:25)
[2016-05-29] MEDS: Levothyroxine Sodium 100 MCG VIAL IVP SCH (09:16)
[2016-05-29] MEDS: Pantoprazole 40 MG VIAL IVP SCH (09:16)
[2016-05-29] MEDS: Ondansetron 4 MG/2 ML VIAL IVP PRN ×2 (10:10→20:06)
[2016-05-29] MEDS ORDERED: Potassium Chloride 20 MEQ, Lidocaine 1% 2 ML in D5% in Water 250 ML IVPB ONE ×2 (12:24→20:25)
[2016-05-29] MEDS: *HR* Promethazine 25 MG/ML VIAL IVP PRN (13:57)
--- NOTE | 2016-05-29 15:21 | Anesthesia Evaluation PreOp ---
Date of Encounter: 05/29/16 Time of Encounter: 15:19 - Past History Planned Operation: Diagnostic Laparoscopy Cardiac History: HTN, Other (Hx PE) Pulmonary History: Snore, VERENICE Dx Other Medical History: Thyroid (Hypothyroid), GERD, Other (Postoperative Intestinal obstructive, Sigmoid colon CA) Anesthesia History: Past Anesthesia (hernia, colectomy, PEGGY, cysto/stents, Low ant resection) : No Alcohol Use: none Drug use: none Medications and Allergies Acetaminophen [Tylenol] 1,000 mg PO Q6HR PRN 05/08/16 [History] Atenolol [Tenormin] 50 mg PO DAILY 05/08/16 [History] Ergocalciferol (VITAMIN D2) [Vitamin D2] 50,000 unit PO TH 05/08/16 [History] Levothyroxine [Synthroid] 150 mcg PO DAILY 05/08/16 [History] Lisinopril [Zestril] 10 mg PO DAILY 05/08/16 [History] Pantoprazole Sodium [Protonix] 40 mg PO DAILY 05/08/16 [History] Tramadol HCl [Ultram] 100 mg PO QID PRN 05/08/16 [History] Docusate [Colace] 100 mg PO BID #30 capsule 05/09/16 [Rx] Allergies No Known Allergies Allergy (Verified 05/08/16 11:03) - Meds/Allergy Pre-op Review Medications Reviewed: Yes Allergies Reviewed: Yes Beta Blockers on Current Med List: No If Beta Blockers taken, Date/Time (Last Dose taken): 13:02 05/29/2016 Anesthesia Results - Labs 05/29/16 01:03 05/29/16 01:03 - Imaging EKG: image reviewed (SR, 1st degree AV block) Anesthesia Exam O2 Sat Weight 76.5 kg Weight 76.5 kg O2 Sat by Pulse Oximetry 94 O2 Sat by Pulse Oximetry 93 O2 Sat by Pulse Oximetry 97 O2 Sat by Pulse Oximetry 91 O2 Sat by Pulse Oximetry 90 O2 Sat by Pulse Oximetry 96 O2 Sat by Pulse Oximetry 96 O2 Sat by Pulse Oximetry 96 O2 Sat by Pulse Oximetry 96 Vital Signs Temp Pulse Resp BP Pulse Ox 97.9 F 108 18 117/80 98 05/27/16 20:10 05/27/16 20:10 05/27/16 20:10 05/27/16 20:10 05/27/16 20:10 Height: 5'3'' Weight: 168# NPO (# of Hours): > 8 hrs Pain Scale: 0 Pain Scale Used: Numeric (1 - 10)
[2016-05-29] MEDS ORDERED: Ondansetron 4 MG/2 ML VIAL ONE (15:41)
[2016-05-29] MEDS ORDERED: Lidocaine -MPF 4% 5 ML AMPUL ONE (15:41)
[2016-05-29] MEDS ORDERED: *HR* Propofol 200 MG/20 ML VIAL IVP ONE (15:41)
[2016-05-29] MEDS ORDERED: *HR* FentaNYL (PF) 100 MCG/2 ML VIAL ONE (15:41)
[2016-05-29] MEDS ORDERED: *HR* Rocuronium Bromide 50 MG/5 ML VIAL ONE (15:41)
[2016-05-29] MEDS ORDERED: Dexamethasone 4 MG/ML VIAL ONE (15:41)
[2016-05-29] MEDS ORDERED: *HR* Midazolam HCl 2 MG/2 ML VIAL ONE (15:41)
[2016-05-29] MEDS ORDERED: *HR* Succinylcholine 200 MG/10 ML VIAL IVP ONE (15:41)
[2016-05-29] MEDS ORDERED: Lidocaine -MPF 2% 2 ML VIAL ONE (15:41)
--- NOTE | 2016-05-29 15:45 | Anesthesia Evaluation PreOp ---
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 Any Significant HX Other Medical History: Thyroid (Hypothyroid), GERD Anesthesia History: No Prior Anesthetic Complications, Past Anesthesia (Hernia, sigmoid Colectomy, Low Ant resection, colostomy, PEGGY, Cysto/stents) : No Alcohol Use: none Drug use: none Medications and Allergies Acetaminophen [Tylenol] 1,000 mg PO Q6HR PRN 05/08/16 [History] Atenolol [Tenormin] 50 mg PO DAILY 05/08/16 [History] Ergocalciferol (VITAMIN D2) [Vitamin D2] 50,000 unit PO TH 05/08/16 [History] Levothyroxine [Synthroid] 150 mcg PO DAILY 05/08/16 [History] Lisinopril [Zestril] 10 mg PO DAILY 05/08/16 [History] Pantoprazole Sodium [Protonix] 40 mg PO DAILY 05/08/16 [History] Tramadol HCl [Ultram] 100 mg PO QID PRN 05/08/16 [History] Docusate [Colace] 100 mg PO BID #30 capsule 05/09/16 [Rx] Allergies No Known Allergies Allergy (Verified 05/08/16 11:03) - Meds/Allergy Pre-op Review Medications Reviewed: Yes Allergies Reviewed: Yes Beta Blockers on Current Med List: Yes If Beta Blockers taken, Date/Time (Last Dose taken): 13:02 05/29/2016 Anesthesia Results - Labs 05/29/16 01:03 05/29/16 01:03 - Imaging EKG: image reviewed (SR 1st degree AV block) Anesthesia Exam O2 Sat Weight 76.5 kg Weight 76.5 kg O2 Sat by Pulse Oximetry 94 O2 Sat by Pulse Oximetry 93 O2 Sat by Pulse Oximetry 97 O2 Sat by Pulse Oximetry 91 O2 Sat by Pulse Oximetry 90 O2 Sat by Pulse Oximetry 96 O2 Sat by Pulse Oximetry 96 O2 Sat by Pulse Oximetry 96 O2 Sat by Pulse Oximetry 96 Vital Signs Temp Pulse Resp BP Pulse Ox 97.9 F 108 18 117/80 98 05/27/16 20:10 05/27/16 20:10 05/27/16 20:10 05/27/16 20:10 05/27/16 20:10 Vital Signs/O2 Sat, Most Current Temp Pulse Resp BP Pulse Ox 98.2 F 96 15 149/94 94 L 05/29/16 11:00 05/29/16 11:00 05/29/16 11:00 05/29/16 11:00 05/29/16 11:00 Height: 5'3'' Weight: 168# NPO (# of Hours): > 8 hrs Pain Scale: 0 Pain Scale Used: Numeric (1 - 10) - HEENT Pupil (Motor): Pupils equal, EOMI Mallampati: II Teeth: Normal Oral Opening: Greater than 3 - INDUSTRIAL MAINTENANCE REPAIRER LOC: Oriented INDUSTRIAL MAINTENANCE REPAIRER Motor: Normal RUE, Normal LUE, Normal RLE, Normal LLE, Normal Face INDUSTRIAL MAINTENANCE REPAIRER Sensory: Normal: RUE, LUE, RLE, LLE, Face - Cardiac Rhythm: Regular Murmur: None JVD: No Carotid Bruit: No - Pulmonary Breath Sounds: bilateral Clear Respiratory Effort: Symmetrical Anesthesia Assess/Plan ASA Score: 3 Modified Earle Scale for Level of Consciousness: Cooperative, oriented, and tranquil Anesthetic Plan: General Autologous Blood: Yes Monitoring Plan: Standard Monitors Recovery Plan: PACU
--- NOTE | 2016-05-29 17:26 | Internal Med Progress Note ---
Date of Encounter: 05/29/16 Time of Encounter: 14:00 - Assessment and plan (1) DVT prophylaxis Current Visit: Yes Status: Acute Assessment and plan: Patient is on heparin drip (2) Peristomal hernia Current Visit: Yes Status: Acute Assessment and plan: NG tube for decompression, nothing by mouth, IV fluid. Surgical consult is on case. Plan for surgery this afternoon (3) Postoperative intestinal obstruction Current Visit: Yes Status: Acute Assessment and plan: Continue nothing by mouth and IV fluid. Continue NG tube with low pressure suctioning for decompression. Surgical consult. Plan for surgery this afternoon. Patient is at high risk because she has a medical problem need surgical intervention. (4) Pulmonary embolism Current Visit: Yes Status: Acute Assessment and plan: Continue heparin drip. Discussed with patient this morning, she would like to have Coumadin for long-term anticoagulation. We will switch to Coumadin if patient does not need further surgical procedure. Patient is at high risk because she is on heparin drip, need close monitoring. Qualifiers: Pulmonary embolism type: other Chronicity: unspecified Acute cor pulmonale presence: without acute cor pulmonale Qualified Code(s): I26.99 - Other pulmonary embolism without acute cor pulmonale (5) Hypothyroidism Current Visit: No Status: Acute Assessment and plan: Stable. No medication now because patient is on nothing by mouth Qualifiers: Hypothyroidism type: unspecified Qualified Code(s): E03.9 - Hypothyroidism , unspecified (6) Essential hypertension Current Visit: No Status: Chronic Assessment and plan: BP is stable. Medications on hold because of nothing by mouth - Time Spent With Patient Greater than 35 minutes - Subjective Interval history: Patient is a 65-year-old female admitted for small bowel obstruction after surgery. Her past medical history is significant for colon cancer, hypertension , and DVT and PE. On this admission, she was also found acute PE. Patient was seen and examined. Patient is on NG tube with low intermittent suction per surgical consult. Still has no stool in colostomy bag. Surgical consult appreciated and plan for surgical intervention this afternoon. Both leg US SHOWS NO DVT. - Constitutional Vitals: Temp Pulse Resp BP Pulse Ox 98.2 F 96 15 149/94 94 L 05/29/16 11:00 05/29/16 11:00 05/29/16 11:00 05/29/16 11:00 05/29/16 11:00 General appearance: Present: cooperative, pleasant, no acute distress, answers questions appropriately - Head Head exam: Present: atraumatic, normocephalic - Eye Eye exam: Present: PERRL, conjuntiva pink, sclera anicteric Pupils: Present: PERRL - Neck Neck exam general surgery: Present: supple, trachea midline. Absent: lymphadenopathy - Respiratory Respiratory exam: Present: CTAB. Absent: accessory muscle use, rales, rhonchi, wheezes - Cardiovascular Cardiovascular exam: Present: RRR, +S1, +S2. Absent: diastolic murmur, gallop, rubs, systolic murmur - GI/Abdominal GI/Abdominal exam: Present: normal bowel sounds, soft, tenderness, no peritoneal signs. Absent: distended - Extremities Exam Extremities exam: Present: warm, radial pulses palpable and symetrical. Absent : calf tenderness, cyanotic, pedal edema - Neurological Exam Neurological exam: Present: CN II-XII intact, oriented X3, no focal deficits. Absent: pronater drift, facial droop, speech deficit - Skin Skin exam: Present: dry, intact Internal Medicine: Result - Labs CBC & Chem 7: 05/29/16 01:03 05/29/16 01:03 Labs: Short CBC 05/29/16 Range/Units 01:03 WBC 6.0 (4.3-11.1) K/mcL Hgb 11.8 D (11.5-15.4) g/dL Hct 35.9 (35.3-44.9) % Plt Count 122 L (140-400) K/mcL Neutrophils # 4.1 (1.6-8.9) K/mcL BMP 05/29/16 01:03 Sodium 139 Potassium 3.4 L Chloride 105 Carbon Dioxide 26 BUN 15 Creatinine 0.72 Glucose 93 Calcium 8.6 D Cardiac Enzymes 05/28/16 Range/Units 19:05 Troponin I 0.01 (0-0.03) ng/mL - ABG Interpretation ABG results: PT/INR, D-dimer PT 12.5 Seconds (9.4-12.1) H 05/29/16 01:03 - Impressions Impressions Chest/Abdomen X-ray 05/29/16 10:07 IMPRESSION: 1. Unchanged partial small bowel obstruction. D/ / Kehinde Escalante MD / Kehinde Escalante MD Interpreting Provider: Kehinde Escalante MD Consult Discharge Plan - Plan Referrals: NO,PCP [Non-Partnered Physician] -
--- NOTE | 2016-05-29 18:48 | Venous Imaging Report ---
LE Venous Duplex Patient Name:Anjali Rivers Order Number:[id number] Procedure Date:05/29/2016 Date:1950ge:65 yrs Gender:Female Location:[facility] Room #: 2NE25 Automatic Splicing Machine Operator:Aramis Torre RN Referring MD:Abran Rice DO sand temperer:Myah Perry HAZ TECH Reading MD:Kalia Lama MD , FACS Secondary Indications: Risk Factors Yes/No Smoking Current No Anticoagulants Yes Hx of DVT Yes Hx of Chemotherapy No Trauma to Veins No Hx of Superficial Phlebitis No Brandy Filter No Impressions: Left lower extremity: normal superficial and deep exam. Recommendations: Test completed on 05/29/2016 at 12:30:00 pm. Findings Venous Duplex Results: Right: Venous imaging of the lower extremity reveals full patency and normal vessel compressibility of the right distal iliac, right common femoral, right superficial femoral, right popliteal, right posterior tibial, right peroneal, right great saphenous and right lesser saphenous. Doppler signals in the evaluated veins were normal. Left: Venous imaging of the lower extremity reveals full patency and normal vessel compressibility of the left distal iliac, left common femoral, left superficial femoral, left popliteal, left posterior tibial, left peroneal, left great saphenous and left lesser saphenous. Doppler signals in the evaluated veins were normal. Prior Study: No prior study available for comparison. Lower Extremity Venous Duplex Side Vein Compress Spontaneous Flow Augment Diameter (cm) Depth (cm) Right Distal Iliac Normal Yes Phasic Yes Right Common Femoral Normal Yes Phasic Yes Right Superficial Femoral Normal Yes Phasic Yes Right Popliteal Normal Yes Phasic Yes Right Posterior Tibial Normal Yes Phasic Yes Right Peroneal Normal Yes Phasic Yes Right Great Saphenous Normal Yes Phasic Yes Right Lesser Saphenous Normal Yes Phasic Yes Left Distal Iliac Normal Yes Phasic Yes Left Common Femoral Normal Yes Phasic Yes Left Superficial Femoral Normal Yes Phasic Yes Left Popliteal Normal Yes Phasic Yes Left Posterior Tibial Normal Yes Phasic Yes Left Peroneal Normal Yes Phasic Yes Left Great Saphenous Normal Yes Phasic Yes Left Lesser Saphenous Normal Yes Phasic Yes Updated by Kalia Lama MD, FACS on 05/29/2016 6:43:46 PM Kalia Lama MD electronically signed on 05/29/2016 6:44:09 PM with status of Final
--- NOTE | 2016-05-29 19:41 | Anesthesia Evaluation Post Op ---
Date of Encounter: 05/29/16 Time of Encounter: 19:41 - Vital Signs Vital Signs: Last Vital Signs Temp 98.5 F 05/29/16 19:25 Pulse 85 05/29/16 19:35 Resp 22 05/29/16 19:35 BP 113/66 05/29/16 19:25 Pulse Ox 93 L 05/29/16 19:35 - Lungs Lungs: Clear Ascult./Percussion - Airway Airway: Non-obstructed - Cardiovascular Regular Rate - Mental Status Mental Status: Asleep with brisk response to light stimulation - Pain Pain Scale: 5 - Nausea Vomiting Nausea Vomiting: Not Present - Hydration Hydration: NPO - Discharge PostOp Status: Transfer Patient to floor
[2016-05-29] MEDS ORDERED: *HR* HYDROmorphone 20 MG/20 ML PCA IV PRN (20:25)
[2016-05-29] MEDS ORDERED: Acetaminophen 650 MG RECTAL SUPP RC PRN (20:25)
[2016-05-29] MEDS ORDERED: Naloxone 0.4 MG/ML INJ IVP PRN (20:25)
[2016-05-29] MEDS ORDERED: *HR* HYDROmorphone (PF) 1 MG/ML SYRINGE IVP PRN ×2 (20:25)
[2016-05-29] MEDS ORDERED: *HR* HYDROcodone/Acet 5/325 mg TABLET PO PRN (20:25)
[2016-05-29] MEDS ORDERED: Chloraseptic Spray 177 ML BOTTLE MM PRN (20:25)
[2016-05-29] MEDS ORDERED: Ipratropium/Albuterol Neb 3 ML IH PRN (20:25)
[2016-05-30] MEDS ORDERED: *HR* Heparin 5,000 UNIT/ML VIAL IVP PRN ×2 (01:21)
[2016-05-30] MEDS ORDERED: Heparin 25,000 UNIT/500 ML D5W 25,000 UNIT/500 ML MLS IVC SCH (01:30)
[2016-05-30 01:48] LABS: INR 1.3; Prothrombin Time 13.9 Seconds (9.4-12.1)
[2016-05-30 01:56] LABS: Basophils % 0.2 %; Hematocrit 36.9 % (35.3-44.9); Hemoglobin 12.3 g/dL (11.5-15.4); Immature Granulocytes % 0.4 % (0-4); Lymphocytes # 0.2 K/mcL (0.6-4.6); Lymphocytes % 3.6 %; Mean Corpuscular HGB Conc 33.3 g/dL (31.6-35.5); Mean Corpuscular Hemoglobin 31.3 pg (28.0-33.3); Mean Corpuscular Volume 93.9 fL (83.0-100.0); Monocytes # 0.4 K/mcL (0.0-1.3); Monocytes % 8.2 %; Platelet Count 113 K/mcL (140-400); Red Blood Count 3.93 M/mcL (3.82-4.97); Red Cell Distribution Width 12.5 % (11.5-14.5); Segmented Neutrophils % 87.6 %
[2016-05-30 01:57] LABS: BUN/Creatinine Ratio 16 (6-26); Blood Urea Nitrogen 12 mg/dL (7-20); Calcium 8.1 mg/dL (8.6-10.8); Carbon Dioxide 26 mEq/L (19-29); Chloride 104 mEq/L (98-109); Glucose 176 mg/dL (70-99); Osmolality,Calculated 292 (280-300); Potassium 3.7 mEq/L (3.5-4.5); Sodium 139 mEq/L (136-145); eGFR For African Americans > 60 (> 60); eGFR For Non-African Americans > 60 (> 60)
[2016-05-30 01:59] LABS: Neutrophils # 4.6 K/mcL (1.6-8.9)
[2016-05-30 02:20] LABS: Platelet Estimate Normal (Normal); Reactive Lymphocytes Present (Not Present)
[2016-05-30] MEDS: Ringers Solution, Lactated 1,000 ML IVC SCH (04:00)
[2016-05-30] MEDS: MetroNIDAZOLE 500 MG/100 ML 500 MG/100 ML BAG IVPB SCH ×3 (06:05→21:11)
[2016-05-30] MEDS: *HR* Metoprolol 5 MG/5 ML VIAL IVP SCH ×3 (06:15→17:53)
[2016-05-30] MEDS: Pantoprazole 40 MG VIAL IVP SCH (08:09)
[2016-05-30] MEDS: Levothyroxine Sodium 100 MCG VIAL IVP SCH (08:09)
[2016-05-30] MEDS: Ondansetron 4 MG/2 ML VIAL IVP PRN (12:18)
[2016-05-30] MEDS ORDERED: 0.9 % Sodium Chloride 1,000 ML IVC ONE (13:20)
[2016-05-30] MEDS: *HR* Heparin 5,000 UNIT/ML VIAL SQ SCH ×2 (13:57→21:23)
--- NOTE | 2016-05-30 13:58 | General Surgery Progress Note ---
Date of Encounter: 05/30/16 Time of Encounter: 13:00 - Assessment and Plan (1) Partial small bowel obstruction Current Visit: Yes Status: Acute POD #1 from exploratory lap, reduction of SBO, SBR, movement of ostomy NG tube to LIWS Bowel rest while awaiting return of bowel function PICC line 3/10 and start TPN therapy IV fluids at 125ml/hour Fluid bolus (1 Liter) Out of bed to chair today, Ambulate 3/10 Pain control- THERMO PROCESSOR pump Incentive Spirometer every 1 hour while awake (2) Peristomal hernia Current Visit: Yes Status: Acute POD #1 from exploratory lap, reduction of SBO, SBR, movement of ostomy NG tube to LIWS Bowel rest while awaiting return of bowel function PICC line 3/10 and start TPN therapy IV fluids at 125ml/hour Fluid bolus (1 Liter) Out of bed to chair today, Ambulate 3/10 Pain control- THERMO PROCESSOR pump Incentive Spirometer every 1 hour while awake (3) UTI (urinary tract infection) Current Visit: Yes Status: Acute culture- no organisms recovered patient currently on cipro Qualifiers: Urinary tract infection type: site unspecified Hematuria presence: without hematuria Qualified Code(s): N39.0 - Urinary tract infection, site not specified (4) Pulmonary embolism Current Visit: Yes Status: Acute Management per hospitalist: Confirmed by CTA, which showed acute posterior basal segment right lower lobe PE Hold heparin gtt during immediate post-operative period Heparin ordered SQ 5,000 every 8 hours for prophylaxis Qualifiers: Pulmonary embolism type: other Chronicity: unspecified Acute cor pulmonale presence: without acute cor pulmonale Qualified Code(s): I26.99 - Other pulmonary embolism without acute cor pulmonale (5) DVT prophylaxis Current Visit: Yes Status: Acute Continue compression stocking to bilateral lower extremities Continue EPCD's to bilateral lower extremities Heparin 5,000 units every 8 hours Patient currently has PE and is at high risk for DVT Dopplers negative for any acute DVT in lower extremities Subjective Patient reports: no new complaints, feels better, still having pain (surgical pain, pre-operative pain resolved), voiding w/o difficulty, no flatus, no bowel movement, afebrile Objective Vital Signs - Last 8 Hours Pulse Resp BP Pulse Ox 05/30/16 11:00 118 15 104/64 89 L 05/30/16 07:00 115 15 86/54 90 L Intake and Output 05/29/16 05/30/16 05/30/16 23:59 07:59 15:59 Intake Total 200 / 200 Output Total 825 / 825 Balance -825 / -825 190 / 190 Intake: IV Fluids 200 / 200 Flagyl 500 MG/100 ML 500 200 / 200 mg In 100 ml @ 100 mls/hr IVPB Q6HR [facility] Rx#: [id number] Output: Urine 525 / 525 Gastric Tube Lavage 0 / 0 Amount Left Nare 0 / 0 Estimated Blood Loss 300 / 300 Wound Drainage Left Lower Abdomen Other: # Voids 2 Weight 78.8 kg Patient Weight 05/30/16 23:59 Weight 78.8 kg - General physical appearance well developed, no distress, moderate pain - Eyes normal ocular movement - ENT normal mucosa, atraumatic, normocephalic - Neck Neck exam: trachea midline - Respiratory normal respiratory effort, clear to auscultation - Cardiovascular Cardiovascular exam: Present: tachycardia - Abdomen Abdomen: Present: soft, tender (expected post-operative tenderness), wound ( ostomy pink and moist; NG tube to LIWS; CARIDAD drain with serous drainage noted) - Incision Incision: Present: clean and dry, intact - Neurologic CN 2-12 grossly intact - Psychiatric oriented to time, oriented to person, oriented to place, speech is normal, memory intact - Labs 05/30/16 01:31 05/30/16 01:31 Diabetes panel 05/30/16 Range/Units 01:31 Sodium 139 (136-145) mEq/L Potassium 3.7 (3.5-4.5) mEq/L Chloride 104 (98-109) mEq/L Carbon Dioxide 26 (19-29) mEq/L BUN 12 (7-20) mg/dL Creatinine 0.76 (0.57-1.11) mg/dL Glucose 176 H (70-99) mg/dL Calcium 8.1 L (8.6-10.8) mg/dL Calcium panel 05/30/16 Range/Units 01:31 Calcium 8.1 L (8.6-10.8) mg/dL Pituitary panel 05/30/16 Range/Units 01:31 Sodium 139 (136-145) mEq/L Potassium 3.7 (3.5-4.5) mEq/L Chloride 104 (98-109) mEq/L Carbon Dioxide 26 (19-29) mEq/L BUN 12 (7-20) mg/dL Creatinine 0.76 (0.57-1.11) mg/dL Glucose 176 H (70-99) mg/dL Calcium 8.1 L (8.6-10.8) mg/dL Adrenal panel 05/30/16 Range/Units 01:31 Sodium 139 (136-145) mEq/L Potassium 3.7 (3.5-4.5) mEq/L Chloride 104 (98-109) mEq/L Carbon Dioxide 26 (19-29) mEq/L BUN 12 (7-20) mg/dL Creatinine 0.76 (0.57-1.11) mg/dL Glucose 176 H (70-99) mg/dL Calcium 8.1 L (8.6-10.8) mg/dL - VTE Documentation of Mechanical Device: Graduated compression elastic hosiery Consult Discharge Plan - Plan Referrals: NO,PCP [Non-Partnered Physician] - - Attending Attestation I examined this patient and my medical decision-making was reviewed with the FLOOR SERVICE WORKER SPRING/PA/Advanced Practice Nurse/Resident Physician. I agree with the documented findings, disposition and treatment plan as described except to the extent set forth below.
--- NOTE | 2016-05-30 15:51 | Internal Med Progress Note ---
Date of Encounter: 05/30/16 Time of Encounter: 10:00 - Assessment and plan (1) DVT prophylaxis Current Visit: Yes Status: Acute Assessment and plan: Patient is on heparin drip, on hold now, place pt on EPCD (2) Peristomal hernia Current Visit: Yes Status: Acute Assessment and plan: Had surgery yesterday. NG tube for decompression, nothing by mouth, IV fluid. (3) Postoperative intestinal obstruction Current Visit: Yes Status: Acute Assessment and plan: Had suegery yesterday. Continue nothing by mouth and IV fluid. Continue NG tube with low pressure suctioning for decompression. Patient is at high risk because she has a medical problem need surgical intervention. (4) Pulmonary embolism Current Visit: Yes Status: Acute Assessment and plan: Continue heparin drip (on hold temporarily due to surgery). Discussed with patient this morning, she would like to have Coumadin for long-term anticoagulation. We will switch to Coumadin if patient does not need further surgical procedure. Patient is at high risk because she is on heparin drip, need close monitoring. Qualifiers: Pulmonary embolism type: other Chronicity: unspecified Acute cor pulmonale presence: without acute cor pulmonale Qualified Code(s): I26.99 - Other pulmonary embolism without acute cor pulmonale (5) Hypothyroidism Current Visit: No Status: Acute Assessment and plan: Stable. No medication now because patient is on nothing by mouth Qualifiers: Hypothyroidism type: unspecified Qualified Code(s): E03.9 - Hypothyroidism , unspecified (6) Essential hypertension Current Visit: No Status: Chronic Assessment and plan: BP is stable. Medications on hold because of nothing by mouth - Time Spent With Patient Greater than 35 minutes - Subjective Interval history: Patient is a 65-year-old female admitted for small bowel obstruction after surgery. Her past medical history is significant for colon cancer, hypertension , and DVT and PE. On this admission, she was also found acute PE. Patient was seen and examined. Patient had surgery to resolve SBO yesterday. Pt c/o pain. Still on NG tube with low suction. Vitals stable. Heparin drip is on hold b/o surgery.. - Constitutional Vitals: Temp Pulse Resp BP Pulse Ox 98.0 F 118 15 104/64 89 L 05/30/16 05:37 05/30/16 11:00 05/30/16 11:00 05/30/16 11:00 05/30/16 11:00 General appearance: Present: cooperative, A&O X 3, pleasant, no acute distress, answers questions appropriately - Head Head exam: Present: atraumatic, normocephalic - Eye Eye exam: Present: PERRL, conjuntiva pink, sclera anicteric Pupils: Present: PERRL - Neck Neck exam general surgery: Present: supple, trachea midline. Absent: lymphadenopathy - Respiratory Respiratory exam: Present: CTAB. Absent: accessory muscle use, rales, rhonchi, wheezes - Cardiovascular Cardiovascular exam: Present: RRR, +S1, +S2. Absent: diastolic murmur, gallop, rubs, systolic murmur - GI/Abdominal GI/Abdominal exam: Present: hypoactive bowel sounds, normal bowel sounds, soft, no peritoneal signs. Absent: distended, tenderness - Extremities Exam Extremities exam: Present: warm, radial pulses palpable and symetrical. Absent : calf tenderness, cyanotic, pedal edema - Neurological Exam Neurological exam: Present: CN II-XII intact, oriented X3, no focal deficits. Absent: pronater drift, facial droop, speech deficit - Skin Skin exam: Present: dry, intact Internal Medicine: Result - Labs CBC & Chem 7: 05/30/16 01:31 05/30/16 01:31 Labs: Short CBC 05/30/16 Range/Units 01:31 WBC 5.3 (4.3-11.1) K/mcL Hgb 12.3 (11.5-15.4) g/dL Hct 36.9 (35.3-44.9) % Plt Count 113 L (140-400) K/mcL Neutrophils # 4.6 (1.6-8.9) K/mcL BMP 05/30/16 01:31 Sodium 139 Potassium 3.7 Chloride 104 Carbon Dioxide 26 BUN 12 Creatinine 0.76 Glucose 176 H Calcium 8.1 L - ABG Interpretation ABG results: PT/INR, D-dimer PT 13.9 Seconds (9.4-12.1) H 05/30/16 01:31 - VTE Documentation of Mechanical Device: Graduated compression elastic hosiery Consult Discharge Plan - Plan Referrals: NO,PCP [Non-Partnered Physician] -
[2016-05-30] MEDS ORDERED: *HR* HYDROmorphone 20 MG/20 ML PCA IV PRN (16:16)
[2016-05-30] MEDS: *HR* HYDROmorphone 20 MG/20 ML PCA IV PRN (19:06)
[2016-05-31] MEDS: *HR* Metoprolol 5 MG/5 ML VIAL IVP SCH ×5 (00:50→23:49)
[2016-05-31] MEDS: Ringers Solution, Lactated 1,000 ML IVC SCH ×3 (02:27→17:58)
[2016-05-31] MEDS: MetroNIDAZOLE 500 MG/100 ML 500 MG/100 ML BAG IVPB SCH ×4 (02:34→23:50)
[2016-05-31 05:53] LABS: Mean Corpuscular HGB Conc 32.3 g/dL (31.6-35.5); Mean Corpuscular Hemoglobin 30.4 pg (28.0-33.3); Mean Corpuscular Volume 94.2 fL (83.0-100.0); Mean Platelet Volume 10.7 fL (9.4-12.4); Red Blood Count 3.29 M/mcL (3.82-4.97); Red Cell Distribution Width 13.1 % (11.5-14.5)
[2016-05-31] MEDS: *HR* Heparin 5,000 UNIT/ML VIAL SQ SCH ×3 (05:58→22:05)
[2016-05-31 06:01] LABS: Alanine Aminotransferase 6 Units/L (0-55); Albumin 2.1 g/dL (3.5-5.0); Albumin/Globulin Ratio 0.9 (1.1-2.2); Alkaline Phosphatase 39 Units/L (38-126); Aspartate Amino Transferase 10 Units/L (5-34); BUN/Creatinine Ratio 26 (6-26); Bilirubin,Total 0.6 mg/dL (0.2-1.2); Calcium 8.2 mg/dL (8.6-10.8); Carbon Dioxide 28 mEq/L (19-29); Chloride 107 mEq/L (98-109); Globulin 2.4 g/dL (2.4-3.5); Glucose 103 mg/dL (70-99); Magnesium 1.1 mg/dL (1.6-2.6); Osmolality,Calculated 296 (280-300); Phosphorous 1.7 mg/dL (2.3-4.7); Potassium 3.4 mEq/L (3.5-4.5); Sodium 141 mEq/L (136-145); Total Protein 4.5 g/dL (6.0-8.3); Triglycerides 59 mg/dL (< 150); eGFR For African Americans > 60 (> 60); eGFR For Non-African Americans > 60 (> 60)
[2016-05-31 06:09] LABS: Blood Urea Nitrogen 23 mg/dL (7-20)
[2016-05-31 06:12] LABS: Platelet Count 88 K/mcL (140-400)
[2016-05-31 07:23] LABS: Lymphocytes # 0.6 K/mcL (0.6-4.6); Monocytes # 0.1 K/mcL (0.0-1.3); Neutrophils # 5.5 K/mcL (1.6-8.9); Platelet Estimate Slight Decrease (Normal)
[2016-05-31] MEDS ORDERED: Magnesium Sulfate 2 GM in D5% in Water 100 ML IVPB ONE (07:48)
[2016-05-31] MEDS: Levothyroxine Sodium 100 MCG VIAL IVP SCH (09:08)
[2016-05-31] MEDS: Pantoprazole 40 MG VIAL IVP SCH (09:08)
[2016-05-31] MEDS: Ondansetron 4 MG/2 ML VIAL IVP PRN (09:35)
[2016-05-31] MEDS ORDERED: D10% in Water 500 ML IV PRN (10:30)
[2016-05-31] MEDS ORDERED: Lidocaine -MPF 1% 5 ML AMPUL INFILT ONE (11:47)
[2016-05-31] MEDS: *HR* HYDROmorphone 20 MG/20 ML PCA IV PRN (12:50)
--- NOTE | 2016-05-31 13:29 | General Surgery Progress Note ---
Date of Encounter: 05/31/16 Time of Encounter: 13:00 - Assessment and Plan (1) Partial small bowel obstruction Current Visit: Yes Status: Acute POD #2 from exploratory lap, reduction of SBO, SBR, movement of ostomy NG tube to LIWS Bowel rest while awaiting return of bowel function PICC line today and start TPN therapy (TFR 125ml/hour) IV fluids + TPN at 125ml/hour Yard Rigger consult Out of bed to chair TID, Ambulate today Pain control- PAYING TELLER pump Incentive Spirometer every 1 hour while awake Repeat am labs (2) Peristomal hernia Current Visit: Yes Status: Acute POD #2 from exploratory lap, reduction of SBO, SBR, movement of ostomy NG tube to LIWS Bowel rest while awaiting return of bowel function PICC line today and start TPN therapy (TFR 125ml/hour) IV fluids + TPN at 125ml/hour Yard Rigger consult Out of bed to chair TID, Ambulate today Pain control- PAYING TELLER pump Incentive Spirometer every 1 hour while awake Repeat am labs (3) Pulmonary embolism Current Visit: Yes Status: Acute Management per hospitalist: Confirmed by CTA, which showed acute posterior basal segment right lower lobe PE Hold heparin gtt during immediate post-operative period Heparin ordered SQ 5,000 every 8 hours for prophylaxis Qualifiers: Pulmonary embolism type: other Chronicity: unspecified Acute cor pulmonale presence: without acute cor pulmonale Qualified Code(s): I26.99 - Other pulmonary embolism without acute cor pulmonale (4) DVT prophylaxis Current Visit: Yes Status: Acute Continue compression stocking to bilateral lower extremities Continue EPCD's to bilateral lower extremities Heparin 5,000 units every 8 hours Patient currently has PE and is at high risk for DVT Dopplers negative for any acute DVT in lower extremities Subjective Patient reports: still having pain (surgical), voiding w/o difficulty, no flatus , no bowel movement, afebrile, other (Patient states that she did get out of bed to chair yesterday but has not been up today due to uncontrolled surgical pain this morning (improved now)) Objective Vital Signs - Last 8 Hours Temp Pulse Resp BP Pulse Ox 05/31/16 11:51 98.4 F 112 18 99/65 92 L 05/31/16 08:04 97.9 F 115 18 121/87 94 L 03/10/17 08:00 94 L 05/31/16 06:02 98.8 F 103 14 106/67 94 L Intake and Output 05/30/16 05/31/16 05/31/16 23:59 07:59 15:59 Intake Total 300 / 300 100 / 100 Output Total 200 / 200 550 / 550 50 / 50 Balance 100 / 100 -450 / -450 -50 / -50 Intake: IV Fluids 300 / 300 100 / 100 Cipro 400 MG/200 ML 400 200 / 200 mg In 200 ml @ 200 mls/hr IVPB Q12HR [facility] Rx#: [id number] Flagyl 500 MG/100 ML 500 100 / 100 100 / 100 mg In 100 ml @ 100 mls/hr IVPB Q6H [facility] Rx#: [id number] Oral 0 / 0 0 / 0 Output: Urine 300 / 300 Gastric Drainage 200 / 200 250 / 250 Wound Drainage 50 / 50 Left Lower Abdomen 50 / 50 Other: # Voids 0 0 Weight 77.8 kg Patient Weight 05/31/16 23:59 Weight 77.8 kg - General physical appearance well developed, no distress, moderate pain - Eyes normal ocular movement - ENT normal mucosa, atraumatic, normocephalic - Neck Neck exam: trachea midline - Respiratory normal respiratory effort, clear to auscultation - Cardiovascular Cardiovascular exam: Present: tachycardia - Abdomen Abdomen: Present: soft, tender (expected post-operative tenderness), wound ( Incision with eric; Ostomy pink and moist without drainage/flatus; CARIDAD drain with serous drainage noted (50ml since midnight); NG tube with bilious drainage noted () - Incision Incision: Present: clean and dry, intact - Neurologic CN 2-12 grossly intact - Psychiatric oriented to time, oriented to person, oriented to place, speech is normal, memory intact - Labs 05/31/16 05:19 05/31/16 05:19 Diabetes panel 05/31/16 Range/Units 05:19 Sodium 141 (136-145) mEq/L Potassium 3.4 L (3.5-4.5) mEq/L Chloride 107 (98-109) mEq/L Carbon Dioxide 28 (19-29) mEq/L BUN 23 H D (7-20) mg/dL Creatinine 0.87 (0.57-1.11) mg/dL Glucose 103 H (70-99) mg/dL Calcium 8.2 L (8.6-10.8) mg/dL AST 10 (5-34) Units/L ALT 6 (0-55) Units/L Alkaline Phosphatase 39 (38-126) Units/L Albumin 2.1 L (3.5-5.0) g/dL Triglycerides 59 (< 150) mg/dL Calcium panel 05/31/16 Range/Units 05:19 Calcium 8.2 L (8.6-10.8) mg/dL Phosphorus 1.7 L (2.3-4.7) mg/dL Albumin 2.1 L (3.5-5.0) g/dL Pituitary panel 05/31/16 Range/Units 05:19 Sodium 141 (136-145) mEq/L Potassium 3.4 L (3.5-4.5) mEq/L Chloride 107 (98-109) mEq/L Carbon Dioxide 28 (19-29) mEq/L BUN 23 H D (7-20) mg/dL Creatinine 0.87 (0.57-1.11) mg/dL Glucose 103 H (70-99) mg/dL Calcium 8.2 L (8.6-10.8) mg/dL Adrenal panel 05/31/16 Range/Units 05:19 Sodium 141 (136-145) mEq/L Potassium 3.4 L (3.5-4.5) mEq/L Chloride 107 (98-109) mEq/L Carbon Dioxide 28 (19-29) mEq/L BUN 23 H D (7-20) mg/dL Creatinine 0.87 (0.57-1.11) mg/dL Glucose 103 H (70-99) mg/dL Calcium 8.2 L (8.6-10.8) mg/dL Total Bilirubin 0.6 (0.2-1.2) mg/dL AST 10 (5-34) Units/L ALT 6 (0-55) Units/L Alkaline Phosphatase 39 (38-126) Units/L Albumin 2.1 L (3.5-5.0) g/dL - VTE Documentation of Mechanical Device: Intermittent pneumatic compression device Consult Discharge Plan - Plan Referrals: NO,PCP [Non-Partnered Physician] - - Attending Attestation I examined this patient and my medical decision-making was reviewed with the O[employer] WELL TREATMENT OPERATOR/PA/Advanced Practice Nurse/Resident Physician. I agree with the documented findings, disposition and treatment plan as described except to the extent set forth below.
[2016-05-31] MEDS: Acetaminophen IV 1,000 MG/100 ML INFUS..BTL IVPB SCH ×2 (15:05→22:05)
--- NOTE | 2016-05-31 16:34 | Internal Med Progress Note ---
Date of Encounter: 05/31/16 Time of Encounter: 11:00 - Assessment and plan (1) DVT prophylaxis Current Visit: Yes Status: Acute Assessment and plan: Patient is on heparin drip, on hold now, place pt on EPCD (2) Peristomal hernia Current Visit: Yes Status: Acute Assessment and plan: Had surgery. NG tube for decompression, nothing by mouth, IV fluid. TPN (3) Postoperative intestinal obstruction Current Visit: Yes Status: Acute Assessment and plan: Had suegery POD #2. Continue nothing by mouth and IV fluid. Continue NG tube with low pressure suctioning for decompression. Start TPN today Patient is at high risk because she has a medical problem need surgical intervention. (4) Pulmonary embolism Current Visit: Yes Status: Acute Assessment and plan: Continue heparin drip (on hold temporarily due to surgery). Discussed with patient, she would like to have Coumadin for long-term anticoagulation. We will switch to Coumadin if patient does not need further surgical procedure. Qualifiers: Pulmonary embolism type: other Chronicity: unspecified Acute cor pulmonale presence: without acute cor pulmonale Qualified Code(s): I26.99 - Other pulmonary embolism without acute cor pulmonale (5) Hypothyroidism Current Visit: No Status: Acute Assessment and plan: Stable. No medication now because patient is on nothing by mouth Qualifiers: Hypothyroidism type: unspecified Qualified Code(s): E03.9 - Hypothyroidism , unspecified (6) Essential hypertension Current Visit: No Status: Chronic Assessment and plan: BP is stable. Medications on hold because of nothing by mouth - Time Spent With Patient Greater than 35 minutes - Subjective Interval history: Patient is a 65-year-old female admitted for small bowel obstruction after surgery. Her past medical history is significant for colon cancer, hypertension , and DVT and PE. On this admission, she was also found acute PE. Patient was seen and examined. Patient had surgery to resolve SBO. POD 2. Pt c /o pain. Still on NG tube with low suction. Vitals stable. Heparin drip is on hold b/o surgery. TPN started today. - Constitutional Vitals: Temp Pulse Resp BP Pulse Ox 98.6 F 92 18 124/77 96 05/31/16 15:36 05/31/16 15:36 05/31/16 15:36 05/31/16 15:36 05/31/16 15:36 General appearance: Present: cooperative, A&O X 3, pleasant, no acute distress, answers questions appropriately - Head Head exam: Present: atraumatic, normocephalic - Eye Eye exam: Present: PERRL, conjuntiva pink, sclera anicteric Pupils: Present: PERRL - Neck Neck exam general surgery: Present: supple, trachea midline. Absent: lymphadenopathy - Respiratory Respiratory exam: Present: CTAB. Absent: accessory muscle use, rales, rhonchi, wheezes - Cardiovascular Cardiovascular exam: Present: RRR, +S1, +S2. Absent: diastolic murmur, gallop, rubs, systolic murmur - GI/Abdominal GI/Abdominal exam: Present: hypoactive bowel sounds, normal bowel sounds, soft, no peritoneal signs. Absent: distended, tenderness Additional comments: Colostomy in place. - Extremities Exam Extremities exam: Present: warm, radial pulses palpable and symetrical. Absent : calf tenderness, cyanotic, pedal edema - Neurological Exam Neurological exam: Present: CN II-XII intact, oriented X3, no focal deficits. Absent: pronater drift, facial droop, speech deficit - Skin Skin exam: Present: dry, intact Internal Medicine: Result - Labs CBC & Chem 7: 05/31/16 05:19 05/31/16 05:19 Labs: Short CBC 05/31/16 Range/Units 05:19 WBC 6.2 (4.3-11.1) K/mcL Hgb 10.0 L D (11.5-15.4) g/dL Hct 31.0 L (35.3-44.9) % Plt Count 88 L (140-400) K/mcL Neutrophils # 5.5 (1.6-8.9) K/mcL BMP 05/31/16 05:19 Sodium 141 Potassium 3.4 L Chloride 107 Carbon Dioxide 28 BUN 23 H D Creatinine 0.87 Glucose 103 H Calcium 8.2 L Liver Function 05/31/16 Range/Units 05:19 Total Bilirubin 0.6 (0.2-1.2) mg/dL AST 10 (5-34) Units/L ALT 6 (0-55) Units/L Alkaline Phosphatase 39 (38-126) Units/L Albumin 2.1 L (3.5-5.0) g/dL - ABG Interpretation ABG results: PT/INR, D-dimer PT 13.9 Seconds (9.4-12.1) H 05/30/16 01:31 - VTE Documentation of Mechanical Device: Intermittent pneumatic compression device Consult Discharge Plan - Plan Referrals: NO,PCP [Non-Partnered Physician] -
[2016-05-31] MEDS ORDERED: Clinimix E 5%-15% SOLUTION 2,000 ML with MVI, adult with vitamin K 10 ML IV SCH (17:00)
[2016-06-01] MEDS: Acetaminophen IV 1,000 MG/100 ML INFUS..BTL IVPB SCH ×4 (01:38→19:51)
[2016-06-01 04:35] LABS: Hemoglobin 8.8 g/dL (11.5-15.4); Mean Platelet Volume 10.6 fL (9.4-12.4)
[2016-06-01 04:36] LABS: Basophils % 0.4 %; Hematocrit 26.8 % (35.3-44.9); Immature Granulocytes % 0.6 % (0-4); Immature Platelets 3.7 % (1.1-6.1); Lymphocytes % 6.5 %; Mean Corpuscular HGB Conc 32.8 g/dL (31.6-35.5); Mean Corpuscular Hemoglobin 31.3 pg (28.0-33.3); Mean Corpuscular Volume 95.4 fL (83.0-100.0); Monocytes % 5.9 %; Red Blood Count 2.81 M/mcL (3.82-4.97); Red Cell Distribution Width 12.8 % (11.5-14.5); Segmented Neutrophils % 81.6 %
[2016-06-01 04:37] LABS: Eosinophils # 0.3 K/mcL (0.0-0.6); Lymphocytes # 0.3 K/mcL (0.6-4.6); Monocytes # 0.3 K/mcL (0.0-1.3); Neutrophils # 4.3 K/mcL (1.6-8.9)
[2016-06-01 04:52] LABS: BUN/Creatinine Ratio 28 (6-26); Blood Urea Nitrogen 18 mg/dL (7-20); Calcium 8.3 mg/dL (8.6-10.8); Carbon Dioxide 35 mEq/L (19-29); Chloride 105 mEq/L (98-109); Glucose 113 mg/dL (70-99); Magnesium 1.5 mg/dL (1.6-2.6); Osmolality,Calculated 297 (280-300); Phosphorous 1.6 mg/dL (2.3-4.7); Potassium 3.1 mEq/L (3.5-4.5); Sodium 142 mEq/L (136-145); eGFR For African Americans > 60 (> 60); eGFR For Non-African Americans > 60 (> 60)
[2016-06-01 05:04] LABS: Platelet Count 81 K/mcL (140-400)
[2016-06-01] MEDS: *HR* Metoprolol 5 MG/5 ML VIAL IVP SCH ×4 (05:26→23:51)
[2016-06-01] MEDS: *HR* Heparin 5,000 UNIT/ML VIAL SQ SCH (05:27)
[2016-06-01] MEDS: MetroNIDAZOLE 500 MG/100 ML 500 MG/100 ML BAG IVPB SCH ×4 (06:34→23:51)
[2016-06-01] MEDS ORDERED: Potassium Chloride 40 MEQ, Lidocaine 1% 2 ML in D5% in Water 500 ML IVPB ONE (07:35)
[2016-06-01] MEDS ORDERED: Magnesium Sulfate 2 GM in D5% in Water 100 ML IVPB ONE (07:37)
[2016-06-01] MEDS: *HR* Promethazine 25 MG/ML VIAL IVP PRN (08:32)
[2016-06-01] MEDS: *HR* HYDROmorphone (PF) 1 MG/ML SYRINGE IVP PRN ×3 (08:39→19:30)
[2016-06-01] MEDS: Ringers Solution, Lactated 1,000 ML IVC SCH ×3 (08:40→18:40)
[2016-06-01] MEDS: Pantoprazole 40 MG VIAL IVP SCH (08:56)
[2016-06-01] MEDS: Levothyroxine Sodium 100 MCG VIAL IVP SCH (08:56)
--- NOTE | 2016-06-01 15:41 | Internal Med Progress Note ---
Date of Encounter: 06/01/16 Time of Encounter: 10:00 - Assessment and plan (1) DVT prophylaxis Current Visit: Yes Status: Acute Assessment and plan: Patient is on heparin drip, on hold now, place pt on EPCD (2) Peristomal hernia Current Visit: Yes Status: Acute Assessment and plan: Had surgery. NG tube for decompression, nothing by mouth, IV fluid. TPN (3) Postoperative intestinal obstruction Current Visit: Yes Status: Acute Assessment and plan: Had suegery POD #3. Continue nothing by mouth and IV fluid. Continue NG tube with low pressure suctioning for decompression. Start TPN. Patient is at high risk because she has a medical problem need surgical intervention. (4) Pulmonary embolism Current Visit: Yes Status: Acute Assessment and plan: Continue heparin drip (on hold temporarily due to surgery). Discussed with patient, she would like to have Coumadin for long-term anticoagulation. We will switch to Coumadin if patient does not need further surgical procedure and start eating. Qualifiers: Pulmonary embolism type: other Chronicity: unspecified Acute cor pulmonale presence: without acute cor pulmonale Qualified Code(s): I26.99 - Other pulmonary embolism without acute cor pulmonale (5) Hypothyroidism Current Visit: No Status: Acute Assessment and plan: Stable. No medication now because patient is on nothing by mouth Qualifiers: Hypothyroidism type: unspecified Qualified Code(s): E03.9 - Hypothyroidism , unspecified (6) Essential hypertension Current Visit: No Status: Chronic Assessment and plan: BP is stable. Medications on hold because of nothing by mouth - Time Spent With Patient Greater than 35 minutes - Subjective Interval history: Patient is a 65-year-old female admitted for small bowel obstruction after surgery. Her past medical history is significant for colon cancer, hypertension , and DVT and PE. On this admission, she was also found acute PE. Patient was seen and examined. Patient had surgery to resolve SBO. POD 3. Pt c /o pain. Still on NG tube with low suction. Vitals stable. Heparin drip is on hold b/o surgery. TPN started. - Constitutional Vitals: Temp Pulse Resp BP Pulse Ox 97.9 F 101 16 138/91 98 06/01/16 11:22 06/01/16 07:46 06/01/16 11:22 06/01/16 07:46 06/01/16 11:22 General appearance: Present: cooperative, A&O X 3, pleasant, no acute distress, answers questions appropriately - Head Head exam: Present: atraumatic, normocephalic - Eye Eye exam: Present: PERRL, conjuntiva pink, sclera anicteric Pupils: Present: PERRL - Neck Neck exam general surgery: Present: supple, trachea midline. Absent: lymphadenopathy - Respiratory Respiratory exam: Present: CTAB. Absent: accessory muscle use, rales, rhonchi, wheezes - Cardiovascular Cardiovascular exam: Present: RRR, +S1, +S2. Absent: diastolic murmur, gallop, rubs, systolic murmur - GI/Abdominal GI/Abdominal exam: Present: hypoactive bowel sounds, normal bowel sounds, soft, tenderness, no peritoneal signs. Absent: distended Additional comments: Colostomy in place. - Extremities Exam Extremities exam: Present: warm, radial pulses palpable and symetrical. Absent : calf tenderness, cyanotic, pedal edema - Neurological Exam Neurological exam: Present: CN II-XII intact, oriented X3, no focal deficits. Absent: pronater drift, facial droop, speech deficit - Skin Skin exam: Present: dry, intact Internal Medicine: Result - Labs CBC & Chem 7: 06/01/16 04:10 06/01/16 04:10 Labs: Short CBC 06/01/16 Range/Units 04:10 WBC 5.3 (4.3-11.1) K/mcL Hgb 8.8 L (11.5-15.4) g/dL Hct 26.8 L (35.3-44.9) % Plt Count 81 L (140-400) K/mcL Neutrophils # 4.3 (1.6-8.9) K/mcL BMP 06/01/16 04:10 Sodium 142 Potassium 3.1 L Chloride 105 Carbon Dioxide 35 H BUN 18 Creatinine 0.65 Glucose 113 H Calcium 8.3 L - ABG Interpretation ABG results: PT/INR, D-dimer PT 13.9 Seconds (9.4-12.1) H 05/30/16 01:31 - VTE Documentation of Mechanical Device: Graduated compression elastic hosiery Consult Discharge Plan - Plan Referrals: NO,PCP [Non-Partnered Physician] -
[2016-06-01 16:46] LABS: Hemoglobin 8.9 g/dL (11.5-15.4); Mean Corpuscular Volume 94.2 fL (83.0-100.0)
[2016-06-01 16:48] LABS: Hematocrit 27.7 % (35.3-44.9); Immature Platelets 3.7 % (1.1-6.1); Mean Corpuscular HGB Conc 32.1 g/dL (31.6-35.5); Mean Corpuscular Hemoglobin 30.3 pg (28.0-33.3); Mean Platelet Volume 10.3 fL (9.4-12.4); Red Blood Count 2.94 M/mcL (3.82-4.97); Red Cell Distribution Width 12.7 % (11.5-14.5)
[2016-06-01 16:52] LABS: INR 1.2; Prothrombin Time 12.7 Seconds (9.4-12.1)
[2016-06-01 16:55] LABS: Activated Partial Thrombo Time 29.6 Seconds (26.0-36.0)
[2016-06-01] MEDS ORDERED: Clinimix E 5%-15% SOLUTION 2,000 ML with MVI, adult with vitamin K 10 ML IV SCH (17:00)
--- NOTE | 2016-06-01 18:08 | General Surgery Progress Note ---
Date of Encounter: 06/01/16 Time of Encounter: 11:00 - Assessment and Plan (1) Partial small bowel obstruction Current Visit: Yes Status: Acute POD #3 from exploratory lap, reduction of SBO, SBR, movement of ostomy NG tube to gravity Bowel rest while awaiting return of bowel function Continue TPN IV fluids + TPN at 125ml/hour Management Retail Intern following Out of bed to chair TID, Ambulate today Pain control- MILLWRIGHT APPRENTICE pump Incentive Spirometer every 1 hour while awake Repeat am labs continue to monitor platelets (2) Peristomal hernia Current Visit: Yes Status: Acute POD #3 from exploratory lap, reduction of SBO, SBR, movement of ostomy See plan above (3) Pulmonary embolism Current Visit: Yes Status: Acute Restart low dose heparin drip this afternoon. Qualifiers: Pulmonary embolism type: other Chronicity: unspecified Acute cor pulmonale presence: without acute cor pulmonale Qualified Code(s): I26.99 - Other pulmonary embolism without acute cor pulmonale (4) DVT prophylaxis Current Visit: Yes Status: Acute Patient is on heparin drip. Subjective Patient reports: no new complaints, feels better, pain is less, flatus, bowel movement, afebrile Narrative: The patient reports feeling much improved this morning from how she felt yesterday. She denies nausea or vomiting and has had output from her colostomy. Objective Vital Signs - Last 8 Hours Temp Pulse Resp BP Pulse Ox 06/01/16 16:00 98.0 F 100 16 149/90 99 06/01/16 11:22 97.9 F 16 98 Intake and Output 06/01/16 06/01/16 06/01/16 07:59 15:59 23:59 Intake Total 1750 / 1750 1370 / 1370 200 / 200 Output Total 150 / 150 650 / 650 0 / 0 Balance 1600 / 1600 720 / 720 200 / 200 Intake: IV Fluids 1750 / 1750 1370 / 1370 200 / 200 Clinimix E 5%-15% 544 / 544 SOLUTION 2,000 ML @ 30 mls/hr IV .Q24H [facility] with M.v.i. Adult 10 ml Rx#: [id number] Lactated Ringers 1,000 ML 1000 / 1000 @ 125 mls/hr IVC .Q8H [facility] Rx#:[id number] Ofirmev 1,000 mg In 100 200 / 200 100 / 100 100 / 100 ml @ 400 mls/hr IVPB Q6H [facility] Rx#:[id number] Cipro 400 MG/200 ML 400 200 / 200 mg In 200 ml @ 200 mls/hr IVPB Q12HR [facility] Rx#: [id number] Intralipid 20% 250 ML @ 250 / 250 21 mls/hr IVPB DAILY@1700 [facility] Rx#:[id number] Magnesium Sulfate 2 GM In 104 / 104 Dextrose 5% 100 ML @ 100 mls/hr IVPB ONCE ONE Rx# :[id number] Flagyl 500 MG/100 ML 500 100 / 100 100 / 100 100 / 100 mg In 100 ml @ 100 mls/hr IVPB Q6H [facility] Rx#: [id number] KCl 40 MEQ Xylocaine 2 ML 522 / 522 In Dextrose 5% 500 ML @ 130.5 mls/hr IVPB ONCE ONE Rx#:[id number] Oral 0 / 0 0 / 0 0 / 0 Output: Urine 0 / 0 300 / 300 Gastric Tube Lavage 150 / 150 350 / 350 0 / 0 Amount Left Nare 150 / 150 350 / 350 0 / 0 Catheter 0 / 0 Wound Drainage 0 / 0 0 / 0 Left Lower Abdomen 0 / 0 0 / 0 Other: # Voids 0 Weight 76.8 kg Blood Glucose* 119 154 128 Patient Weight 06/01/16 23:59 Weight 76.8 kg - General physical appearance well developed, well nourished, no distress - Eyes normal ocular movement - ENT normal mucosa, atraumatic, normocephalic, Other (NG tube in place) - Neck Neck exam: trachea midline - Respiratory normal respiratory effort, clear to auscultation - Cardiovascular Cardiovascular exam: Present: RRR, tachycardia - Abdomen Abdomen: Present: bowel sounds present, soft, tender (at surgical sites), wound (ostomy with brown output in bag) - Integumentary no rash - Neurologic CN 2-12 grossly intact - Musculoskeletal normal posture - Psychiatric oriented to time, oriented to person, oriented to place, speech is normal, memory intact, other (pleasant) - Labs 06/02/16 06:00 06/02/16 06:00 Diabetes panel 06/01/16 Range/Units 04:10 Sodium 142 (136-145) mEq/L Potassium 3.1 L (3.5-4.5) mEq/L Chloride 105 (98-109) mEq/L Carbon Dioxide 35 H (19-29) mEq/L BUN 18 (7-20) mg/dL Creatinine 0.65 (0.57-1.11) mg/dL Glucose 113 H (70-99) mg/dL Calcium 8.3 L (8.6-10.8) mg/dL Calcium panel 06/01/16 Range/Units 04:10 Calcium 8.3 L (8.6-10.8) mg/dL Phosphorus 1.6 L (2.3-4.7) mg/dL Pituitary panel 06/01/16 Range/Units 04:10 Sodium 142 (136-145) mEq/L Potassium 3.1 L (3.5-4.5) mEq/L Chloride 105 (98-109) mEq/L Carbon Dioxide 35 H (19-29) mEq/L BUN 18 (7-20) mg/dL Creatinine 0.65 (0.57-1.11) mg/dL Glucose 113 H (70-99) mg/dL Calcium 8.3 L (8.6-10.8) mg/dL Adrenal panel 06/01/16 Range/Units 04:10 Sodium 142 (136-145) mEq/L Potassium 3.1 L (3.5-4.5) mEq/L Chloride 105 (98-109) mEq/L Carbon Dioxide 35 H (19-29) mEq/L BUN 18 (7-20) mg/dL Creatinine 0.65 (0.57-1.11) mg/dL Glucose 113 H (70-99) mg/dL Calcium 8.3 L (8.6-10.8) mg/dL - VTE Documentation of Mechanical Device: Graduated compression elastic hosiery Consult Discharge Plan - Plan Referrals: NO,PCP [Non-Partnered Physician] - - Attending Attestation I examined this patient and my medical decision-making was reviewed with the HOLE DIGGER OPERATOR/PA/Advanced Practice Nurse/Resident Physician. I agree with the documented findings, disposition and treatment plan as described except to the extent set forth below.
[2016-06-01] MEDS: Heparin 25,000 UNIT/500 ML D5W 25,000 UNIT/500 ML MLS IVC SCH (18:38)
[2016-06-01] MEDS: Ondansetron 4 MG/2 ML VIAL IVP PRN (19:33)
[2016-06-01] MEDS: *HR* HYDROmorphone 20 MG/20 ML PCA IV PRN (19:41)
[2016-06-02] MEDS ORDERED: *HR* Heparin 5,000 UNIT/ML VIAL IVP PRN (00:52)
[2016-06-02] MEDS: Acetaminophen IV 1,000 MG/100 ML INFUS..BTL IVPB SCH ×4 (00:59→20:19)
[2016-06-02] MEDS: *HR* Heparin 5,000 UNIT/ML VIAL IVP PRN (01:00)
[2016-06-02] MEDS: Ondansetron 4 MG/2 ML VIAL IVP PRN ×4 (01:43→19:06)
[2016-06-02] MEDS: *HR* HYDROmorphone (PF) 1 MG/ML SYRINGE IVP PRN ×2 (01:43→05:44)
[2016-06-02] MEDS: *HR* Metoprolol 5 MG/5 ML VIAL IVP SCH ×3 (05:44→18:20)
[2016-06-02] MEDS: MetroNIDAZOLE 500 MG/100 ML 500 MG/100 ML BAG IVPB SCH ×3 (05:44→18:20)
[2016-06-02 06:53] LABS: BUN/Creatinine Ratio 15 (6-26); Blood Urea Nitrogen 8 mg/dL (7-20); Calcium 7.7 mg/dL (8.6-10.8); Carbon Dioxide 32 mEq/L (19-29); Chloride 103 mEq/L (98-109); Glucose 113 mg/dL (70-99); Magnesium 1.1 mg/dL (1.6-2.6); Osmolality,Calculated 289 (280-300); Phosphorous 1.2 mg/dL (2.3-4.7); Potassium 2.9 mEq/L (3.5-4.5); Sodium 140 mEq/L (136-145); eGFR For African Americans > 60 (> 60); eGFR For Non-African Americans > 60 (> 60)
[2016-06-02 07:05] LABS: Hemoglobin 9.6 g/dL (11.5-15.4); Red Cell Distribution Width 12.8 % (11.5-14.5)
[2016-06-02 07:07] LABS: Basophils % 0.3 %; Eosinophils # 0.6 K/mcL (0.0-0.6); Eosinophils % 15.5 %; Hematocrit 29.2 % (35.3-44.9); Immature Granulocytes % 0.8 % (0-4); Immature Platelets 4.1 % (1.1-6.1); Lymphocytes # 0.3 K/mcL (0.6-4.6); Lymphocytes % 8.8 %; Mean Corpuscular HGB Conc 32.9 g/dL (31.6-35.5); Mean Corpuscular Hemoglobin 30.5 pg (28.0-33.3); Mean Corpuscular Volume 92.7 fL (83.0-100.0); Mean Platelet Volume 10.2 fL (9.4-12.4); Monocytes # 0.3 K/mcL (0.0-1.3); Monocytes % 8.5 %; Neutrophils # 2.6 K/mcL (1.6-8.9); Platelet Count 87 K/mcL (140-400); Red Blood Count 3.15 M/mcL (3.82-4.97); Segmented Neutrophils % 66.1 %
[2016-06-02] MEDS ORDERED: Potassium Chloride 40 MEQ, Lidocaine 1% 2 ML in D5% in Water 500 ML IVPB ONE (07:19)
[2016-06-02 07:58] LABS: Platelet Estimate Decreased (Normal)
[2016-06-02] MEDS: Pantoprazole 40 MG VIAL IVP SCH (08:15)
[2016-06-02] MEDS: Levothyroxine Sodium 100 MCG VIAL IVP SCH (08:15)
[2016-06-02] MEDS ORDERED: Potassium Chloride 40 MEQ/200 ML BAG IVPB PRN (11:05)
[2016-06-02] MEDS: Heparin 25,000 UNIT/500 ML D5W 25,000 UNIT/500 ML MLS IVC SCH (11:26)
[2016-06-02] MEDS ORDERED: Magnesium Sulfate 2 GM in D5% in Water 100 ML IVPB ONE (11:59)
--- NOTE | 2016-06-02 12:01 | Internal Med Progress Note ---
Date of Encounter: 06/02/16 Time of Encounter: 10:00 - Assessment and plan (1) DVT prophylaxis Current Visit: Yes Status: Acute Assessment and plan: Patient is on heparin drip. (2) Peristomal hernia Current Visit: Yes Status: Acute Assessment and plan: Had surgery. NG tube for decompression, nothing by mouth, IV fluid. On TPN (3) Postoperative intestinal obstruction Current Visit: Yes Status: Acute Assessment and plan: Had suegery POD #4. Continue nothing by mouth and IV fluid. Continue NG tube with low pressure suctioning for decompression. Start TPN. Patient is at high risk because she has a medical problem need surgical intervention. (4) Pulmonary embolism Current Visit: Yes Status: Acute Assessment and plan: Continue heparin drip . Discussed with patient, she would like to have Coumadin for long-term anticoagulation. We will switch to Coumadin if patient does not need further surgical procedure and start eating. Patient is at high risk because she is on heparin drip, need close monitoring. Qualifiers: Pulmonary embolism type: other Chronicity: unspecified Acute cor pulmonale presence: without acute cor pulmonale Qualified Code(s): I26.99 - Other pulmonary embolism without acute cor pulmonale (5) Hypothyroidism Current Visit: No Status: Acute Assessment and plan: Stable. No medication now because patient is on nothing by mouth Qualifiers: Hypothyroidism type: unspecified Qualified Code(s): E03.9 - Hypothyroidism , unspecified (6) Essential hypertension Current Visit: No Status: Chronic Assessment and plan: BP is stable. Medications on hold because of nothing by mouth - Time Spent With Patient Greater than 35 minutes - Subjective Interval history: Patient is a 65-year-old female admitted for small bowel obstruction after surgery. Her past medical history is significant for colon cancer, hypertension , and DVT and PE. On this admission, she was also found acute PE. Patient was seen and examined. Patient had surgery to resolve SBO. POD 4. Pt c /o pain. Still on NG tube with low suction. Vitals stable. There is clearly bowel sound present today. Heparin drip is restarted. On TPN. Patient has a multiple IV lines/medications, we will transfer her to [facility] for higher level nursing care. - Constitutional Vitals: Temp Pulse Resp BP Pulse Ox 98.2 F 95 15 131/90 96 06/02/16 07:44 06/02/16 07:44 06/02/16 07:44 06/02/16 07:44 06/02/16 07:44 General appearance: Present: cooperative, A&O X 3, pleasant, no acute distress, answers questions appropriately - Head Head exam: Present: atraumatic, normocephalic - Eye Eye exam: Present: PERRL, conjuntiva pink, sclera anicteric Pupils: Present: PERRL - Neck Neck exam general surgery: Present: supple, trachea midline. Absent: lymphadenopathy - Respiratory Respiratory exam: Present: CTAB. Absent: accessory muscle use, rales, rhonchi, wheezes - Cardiovascular Cardiovascular exam: Present: RRR, +S1, +S2. Absent: diastolic murmur, gallop, rubs, systolic murmur - GI/Abdominal GI/Abdominal exam: Present: normal bowel sounds, soft, tenderness, no peritoneal signs. Absent: distended - Extremities Exam Extremities exam: Present: warm, radial pulses palpable and symetrical. Absent : calf tenderness, cyanotic, pedal edema - Neurological Exam Neurological exam: Present: CN II-XII intact, oriented X3, no focal deficits. Absent: pronater drift, facial droop, speech deficit - Skin Skin exam: Present: dry, intact Internal Medicine: Result - Labs CBC & Chem 7: 06/02/16 06:00 06/02/16 06:00 Labs: Short CBC 06/01/16 06/02/16 Range/Units 16:36 06:00 WBC 5.1 3.9 L (4.3-11.1) K/mcL Hgb 8.9 L 9.6 L (11.5-15.4) g/dL Hct 27.7 L 29.2 L (35.3-44.9) % Plt Count 86 L 87 L (140-400) K/mcL Neutrophils # 2.6 (1.6-8.9) K/mcL BMP 06/02/16 06:00 Sodium 140 Potassium 2.9 L Chloride 103 Carbon Dioxide 32 H BUN 8 D Creatinine 0.54 L Glucose 113 H Calcium 7.7 L - ABG Interpretation ABG results: PT/INR, D-dimer PT 12.7 Seconds (9.4-12.1) H 06/01/16 16:36 - VTE Documentation of Mechanical Device: Intermittent pneumatic compression device Consult Discharge Plan - Plan Referrals: NO,PCP [Non-Partnered Physician] -
--- NOTE | 2016-06-02 14:01 | General Surgery Progress Note ---
Date of Encounter: 06/02/16 Time of Encounter: 08:10 - Assessment and Plan (1) Partial small bowel obstruction Current Visit: Yes Status: Acute POD #4 from exploratory lap, reduction of SBO, SBR, movement of ostomy NG tube to LIWS due to recurrence of nausea. Patient was moved to ICU per complexity of nursing requirement. No decline in status. Bowel rest while awaiting return of bowel function Continue TPN therapy (TFR 125ml/hour) recommend increase in potassium. IV fluids + TPN at 125ml/hour Claims Correspondence Clerk following Out of bed to chair TID, Ambulate Pain control- XEROX MACHINE OPERATOR pump Incentive Spirometer every 1 hour while awake Repeat am labs continue to monitor platelets (2) Peristomal hernia Current Visit: Yes Status: Acute POD #4 from exploratory lap, reduction of SBO, SBR, movement of ostomy See plan above (3) Pulmonary embolism Current Visit: Yes Status: Acute Continue low dose heparin drip. Continue to monitor platelets. Qualifiers: Pulmonary embolism type: other Chronicity: unspecified Acute cor pulmonale presence: without acute cor pulmonale Qualified Code(s): I26.99 - Other pulmonary embolism without acute cor pulmonale (4) DVT prophylaxis Current Visit: Yes Status: Acute Patient is on heparin drip. (5) Hypokalemia Current Visit: Yes Status: Acute 40meq given by medicine team. Continue to monitor and replace as needed. Recommend increase in potassium in TPN. Second 40meq dose ordered. (6) Hypomagnesemia Current Visit: Yes Status: Acute Continue to monitor and replace as needed. Magnesium sulfate 2gm ordered by medicine team. Subjective Patient reports: still having pain, voiding w/o difficulty, bowel movement, nausea Narrative: The patient feels about the same as yesterday, but was having some nausea starting yesterday evening. She states she is having some soreness and pain in her LLQ where her colostomy used to be. She denies having any appetite. Objective Vital Signs - Last 8 Hours Temp Pulse Resp BP Pulse Ox 06/02/16 12:27 103 16 150/90 96 06/02/16 07:44 98.2 F 95 15 131/90 96 Intake and Output 06/01/16 06/02/16 06/02/16 22:59 07:59 15:59 Intake Total 296 / 296 Output Total 1225 / 1225 Balance -929 / -929 Intake: IV Fluids 296 / 296 Heparin 25,000 UNIT/500 196 / 196 ML D5W 25,000 unit In 500 ml @ 12 UNIT/KG/HR 18. 432 mls/hr IVC .Q24H [facility] Rx#:[id number] Lactated Ringers 1,000 ML @ 125 mls/hr IVC .Q8H [facility] Rx#:[id number] Ofirmev 1,000 mg In 100 100 / 100 ml @ 400 mls/hr IVPB Q6H [facility] Rx#:[id number] Cipro 400 MG/200 ML 400 mg In 200 ml @ 200 mls/hr IVPB Q12HR [facility] Rx#: [id number] Flagyl 500 MG/100 ML 500 mg In 100 ml @ 100 mls/hr IVPB Q6H [facility] Rx#: [id number] Oral Output: Urine 975 / 975 Stool Gastric Tube Lavage Amount Left Nare Catheter Gastric Drainage 250 / 250 Wound Drainage Left Lower Abdomen Other: Meal npo Stool Consistency Stool Color # Voids 2 Weight 81.5 kg Blood Glucose* Patient Weight 06/03/16 00:59 Weight 81.5 kg - General physical appearance well developed, well nourished, no distress - Eyes normal ocular movement - ENT normal mucosa, Other (NG tube in place) - Neck Neck exam: trachea midline - Respiratory normal respiratory effort, clear to auscultation - Cardiovascular Cardiovascular exam: Present: RRR, tachycardia - Abdomen Abdomen: Present: bowel sounds present, soft Abdominal Tenderness: LLQ - Integumentary no rash - Neurologic CN 2-12 grossly intact - Musculoskeletal normal posture - Psychiatric oriented to time, oriented to person, oriented to place, speech is normal, memory intact - Labs 06/02/16 06:00 06/02/16 06:00 Diabetes panel 06/02/16 Range/Units 06:00 Sodium 140 (136-145) mEq/L Potassium 2.9 L (3.5-4.5) mEq/L Chloride 103 (98-109) mEq/L Carbon Dioxide 32 H (19-29) mEq/L BUN 8 D (7-20) mg/dL Creatinine 0.54 L (0.57-1.11) mg/dL Glucose 113 H (70-99) mg/dL Calcium 7.7 L (8.6-10.8) mg/dL Calcium panel 06/02/16 Range/Units 06:00 Calcium 7.7 L (8.6-10.8) mg/dL Phosphorus 1.2 L (2.3-4.7) mg/dL Pituitary panel 06/02/16 Range/Units 06:00 Sodium 140 (136-145) mEq/L Potassium 2.9 L (3.5-4.5) mEq/L Chloride 103 (98-109) mEq/L Carbon Dioxide 32 H (19-29) mEq/L BUN 8 D (7-20) mg/dL Creatinine 0.54 L (0.57-1.11) mg/dL Glucose 113 H (70-99) mg/dL Calcium 7.7 L (8.6-10.8) mg/dL Adrenal panel 06/02/16 Range/Units 06:00 Sodium 140 (136-145) mEq/L Potassium 2.9 L (3.5-4.5) mEq/L Chloride 103 (98-109) mEq/L Carbon Dioxide 32 H (19-29) mEq/L BUN 8 D (7-20) mg/dL Creatinine 0.54 L (0.57-1.11) mg/dL Glucose 113 H (70-99) mg/dL Calcium 7.7 L (8.6-10.8) mg/dL - VTE Documentation of Mechanical Device: Intermittent pneumatic compression device Consult Discharge Plan - Plan Referrals: NO,PCP [Non-Partnered Physician] - - Attending Attestation I examined this patient and my medical decision-making was reviewed with the INSTRUMENT ROOM TECHNICIAN/PA/Advanced Practice Nurse/Resident Physician. I agree with the documented findings, disposition and treatment plan as described except to the extent set forth below.
[2016-06-02] MEDS ORDERED: D5 IVC ONE (14:30)
[2016-06-02] MEDS ORDERED: WATER IVC ONE (14:30)
[2016-06-02] MEDS ORDERED: LIDOCAINE MPF 1% IVC ONE (14:30)
[2016-06-02] MEDS ORDERED: POTASSIUM CHLORIDE IVC ONE (14:30)
[2016-06-02] MEDS: Ringers Solution, Lactated 1,000 ML IVC SCH (16:59)
[2016-06-02] MEDS ORDERED: Clinimix E 5%-15% SOLUTION 2,000 ML with MVI, adult with vitamin K 10 ML IV SCH (17:00)
[2016-06-02 17:15] LABS: BUN/Creatinine Ratio 11 (6-26); Blood Urea Nitrogen 6 mg/dL (7-20); Calcium 7.8 mg/dL (8.6-10.8); Carbon Dioxide 32 mEq/L (19-29); Chloride 102 mEq/L (98-109); Glucose 156 mg/dL (70-99); Osmolality,Calculated 289 (280-300); Potassium 3.2 mEq/L (3.5-4.5); Sodium 139 mEq/L (136-145); eGFR For African Americans > 60 (> 60); eGFR For Non-African Americans > 60 (> 60)
[2016-06-03] MEDS: *HR* Metoprolol 5 MG/5 ML VIAL IVP SCH ×4 (00:13→17:09)
[2016-06-03] MEDS: *HR* HYDROmorphone 20 MG/20 ML PCA IV PRN (00:17)
[2016-06-03] MEDS: MetroNIDAZOLE 500 MG/100 ML 500 MG/100 ML BAG IVPB SCH ×2 (00:25→05:14)
[2016-06-03] MEDS: Acetaminophen IV 1,000 MG/100 ML INFUS..BTL IVPB SCH ×4 (01:23→20:15)
[2016-06-03] MEDS: *HR* Promethazine 25 MG/ML VIAL IVP PRN (01:34)
[2016-06-03] MEDS: Ringers Solution, Lactated 1,000 ML IVC SCH ×2 (05:15→17:10)
[2016-06-03] MEDS: Heparin 25,000 UNIT/500 ML D5W 25,000 UNIT/500 ML MLS IVC SCH ×2 (05:16→23:57)
[2016-06-03 05:45] LABS: Basophils % 0.8 %; Eosinophils # 0.6 K/mcL (0.0-0.6); Eosinophils % 15.3 %; Hematocrit 29.2 % (35.3-44.9); Hemoglobin 9.6 g/dL (11.5-15.4); Immature Granulocytes % 1.6 % (0-4); Immature Platelets 2.5 % (1.1-6.1); Lymphocytes # 0.5 K/mcL (0.6-4.6); Lymphocytes % 12.1 %; Mean Corpuscular HGB Conc 32.9 g/dL (31.6-35.5); Mean Corpuscular Hemoglobin 30.8 pg (28.0-33.3); Mean Corpuscular Volume 93.6 fL (83.0-100.0); Mean Platelet Volume 10.1 fL (9.4-12.4); Monocytes # 0.4 K/mcL (0.0-1.3); Neutrophils # 2.3 K/mcL (1.6-8.9); Platelet Count 101 K/mcL (140-400); Red Blood Count 3.12 M/mcL (3.82-4.97); Red Cell Distribution Width 12.9 % (11.5-14.5); Segmented Neutrophils % 60.2 %
[2016-06-03 06:03] LABS: BUN/Creatinine Ratio 9 (6-26); Calcium 8.1 mg/dL (8.6-10.8); Carbon Dioxide 31 mEq/L (19-29); Chloride 105 mEq/L (98-109); Glucose 131 mg/dL (70-99); Magnesium 1.4 mg/dL (1.6-2.6); Osmolality,Calculated 289 (280-300); Phosphorous 1.7 mg/dL (2.3-4.7); Potassium 3.1 mEq/L (3.5-4.5); Sodium 140 mEq/L (136-145); eGFR For African Americans > 60 (> 60); eGFR For Non-African Americans > 60 (> 60)
[2016-06-03 06:05] LABS: Blood Urea Nitrogen 5 mg/dL (7-20)
[2016-06-03 06:11] LABS: Platelet Estimate Decreased (Normal)
[2016-06-03] MEDS ORDERED: Potassium Chloride 40 MEQ, Lidocaine 1% 2 ML in D5% in Water 500 ML IVPB ONE (08:07)
[2016-06-03] MEDS ORDERED: Magnesium Sulfate 2 GM in D5% in Water 100 ML IVPB ONE (08:10)
[2016-06-03] MEDS: Levothyroxine Sodium 100 MCG VIAL IVP SCH (09:54)
[2016-06-03] MEDS: Pantoprazole 40 MG VIAL IVP SCH (09:54)
--- NOTE | 2016-06-03 14:12 | General Surgery Progress Note ---
Date of Encounter: 06/03/16 Time of Encounter: 13:30 - Assessment and Plan (1) Partial small bowel obstruction Current Visit: Yes Status: Acute POD #5 from exploratory lap, reduction of SBO, SBR, movement of ostomy Remove NG tube Start clear liquid diet with enlive protein supplements Continue TPN therapy (TFR 100ml/hour) IV fluids + TPN at 100ml/hour Design Painter following for TPN recommendations Out of bed to chair TID, Ambulate Pain control- AIR HOLE DRILLER pump Incentive Spirometer every 1 hour while awake Repeat am labs (2) Peristomal hernia Current Visit: Yes Status: Acute POD #5 from exploratory lap, reduction of SBO, SBR, movement of ostomy Remove NG tube Start clear liquid diet with enlive protein supplements Continue TPN therapy (TFR 100ml/hour) IV fluids + TPN at 100ml/hour Design Painter following for TPN recommendations Out of bed to chair TID, Ambulate Pain control- AIR HOLE DRILLER pump Incentive Spirometer every 1 hour while awake Repeat am labs (3) Pulmonary embolism Current Visit: Yes Status: Acute Management per hospitalist: Confirmed by CTA, which showed acute posterior basal segment right lower lobe PE Continue heparin gtt Qualifiers: Pulmonary embolism type: other Chronicity: unspecified Acute cor pulmonale presence: without acute cor pulmonale Qualified Code(s): I26.99 - Other pulmonary embolism without acute cor pulmonale (4) Protein-calorie malnutrition, moderate Current Visit: Yes Status: Acute Continue TPN therapy Advance to clear liquids with protein supplements TID (5) DVT prophylaxis Current Visit: Yes Status: Acute Continue compression stocking to bilateral lower extremities Continue EPCD's to bilateral lower extremities Patient currently has PE and is at high risk for DVT Continue heparin gtt Dopplers negative for any acute DVT in lower extremities Subjective Patient reports: no new complaints, feels better, still having pain, pain is less, voiding w/o difficulty, bowel movement (via ostomy), afebrile Objective Vital Signs - Last 8 Hours Temp Pulse Resp BP Pulse Ox 06/03/16 12:18 98.2 F 06/03/16 12:00 112 14 145/104 97 06/03/16 10:00 100 14 155/98 98 06/03/16 08:00 114 06/03/16 07:45 97.9 F Intake and Output 06/02/16 06/03/16 06/03/16 23:59 07:59 15:59 Intake Total 252 / 2522 1750 / 1750 204 / 204 Output Total 450 / 450 160 / 160 1355 / 1355 Balance 2071 1590 / 1590 -1151 / -1151 Intake: IV Fluids 2522 / 2522 1750 / 1750 204 / 204 Heparin 25,000 UNIT/500 500 / 500 ML D5W 25,000 unit In 500 ml @ 12 UNIT/KG/HR 18. 432 mls/hr IVC .Q24H [facility] Rx#:[id number] KCl 40 MEQ Xylocaine-MPF 522 / 522 1% VIAL 2 ML In Dextrose 5% 500 ML @ 100 mls/hr IVC .Q5H14M [facility] Rx#: [id number] Lactated Ringers 1,000 ML 1000 / 1000 1000 / 1000 @ 90 mls/hr IVC .Q11H7M [facility] Rx#:[id number] Ofirmev 1,000 mg In 100 200 / 200 100 / 100 100 / 100 ml @ 400 mls/hr IVPB Q6H [facility] Rx#:[id number] Cipro 400 MG/200 ML 400 200 / 200 200 / 200 mg In 200 ml @ 200 mls/hr IVPB Q12HR [facility] Rx#: [id number] Intralipid 20% 250 ML @ 250 / 250 21 mls/hr IVPB DAILY@1700 [facility] Rx#:[id number] Magnesium Sulfate 2 GM In 104 / 104 Dextrose 5% 100 ML @ 100 mls/hr IVPB ONCE [facility] Rx# :[id number] Flagyl 500 MG/100 ML 500 100 / 100 200 / 200 mg In 100 ml @ 100 mls/hr IVPB Q6H [facility] Rx#: [id number] Oral 0 / 0 0 / 0 Output: Urine 400 / 400 700 / 700 Stool / 25 Catheter 650 / 650 Gastric Drainage 150 / 150 Wound Drainage 10 5 / 5 Left Lower Abdomen 5 / 5 Other: Stool Consistency liquid Stool Color Brown # Voids 2 Weight 81.5 kg 81.5 kg Blood Glucose* 133 172 Patient Weight 06/03/16 23:59 Weight 81.5 kg - General physical appearance well developed, no distress - Eyes PERRL, normal ocular movement - ENT normal mucosa, atraumatic, normocephalic - Neck Neck exam: trachea midline - Respiratory normal respiratory effort, clear to auscultation, other (diminished bibasilar bases) - Cardiovascular Cardiovascular exam: Present: tachycardia - Abdomen Abdomen: Present: bowel sounds present, soft, tender (expected post-operative tenderness), wound (ostomy pink and moist with liquid brown stool noted; CARIDAD drain to bulb suction with 15ml of serousang. drainage noted) - Incision Incision: Present: clean and dry, intact - Neurologic CN 2-12 grossly intact - Psychiatric oriented to time, oriented to person, oriented to place, speech is normal, memory intact - Labs 06/03/16 05:30 06/03/16 05:30 Diabetes panel 06/02/16 06/03/16 Range/Units 16:45 05:30 Sodium 139 140 (136-145) mEq/L Potassium 3.2 L 3.1 L (3.5-4.5) mEq/L Chloride 102 105 (98-109) mEq/L Carbon Dioxide 32 H 31 H (19-29) mEq/L BUN 6 L 5 L (7-20) mg/dL Creatinine 0.57 0.57 (0.57-1.11) mg/dL Glucose 156 H 131 H (70-99) mg/dL Calcium 7.8 L 8.1 L (8.6-10.8) mg/dL Calcium panel 06/02/16 06/03/16 Range/Units 16:45 05:30 Calcium 7.8 L 8.1 L (8.6-10.8) mg/dL Phosphorus 1.7 L (2.3-4.7) mg/dL Pituitary panel 06/02/16 06/03/16 Range/Units 16:45 05:30 Sodium 139 140 (136-145) mEq/L Potassium 3.2 L 3.1 L (3.5-4.5) mEq/L Chloride 102 105 (98-109) mEq/L Carbon Dioxide 32 H 31 H (19-29) mEq/L BUN 6 L 5 L (7-20) mg/dL Creatinine 0.57 0.57 (0.57-1.11) mg/dL Glucose 156 H 131 H (70-99) mg/dL Calcium 7.8 L 8.1 L (8.6-10.8) mg/dL Adrenal panel 06/02/16 06/03/16 Range/Units 16:45 05:30 Sodium 139 140 (136-145) mEq/L Potassium 3.2 L 3.1 L (3.5-4.5) mEq/L Chloride 102 105 (98-109) mEq/L Carbon Dioxide 32 H 31 H (19-29) mEq/L BUN 6 L 5 L (7-20) mg/dL Creatinine 0.57 0.57 (0.57-1.11) mg/dL Glucose 156 H 131 H (70-99) mg/dL Calcium 7.8 L 8.1 L (8.6-10.8) mg/dL - VTE Documentation of Mechanical Device: Intermittent pneumatic compression device Consult Discharge Plan - Plan Referrals: NO,PCP [Non-Partnered Physician] - - Attending Attestation I examined this patient and my medical decision-making was reviewed with the MINERAL ENGINEER/PA/Advanced Practice Nurse/Resident Physician. I agree with the documented findings, disposition and treatment plan as described except to the extent set forth below.
[2016-06-03] MEDS ORDERED: Clinimix E 5%-15% SOLUTION 2,000 ML with MVI, adult with vitamin K 10 ML IV SCH (17:00)
--- NOTE | 2016-06-03 20:25 | Internal Med Progress Note ---
Date of Encounter: 06/03/16 Time of Encounter: 10:00 - Assessment and plan (1) DVT prophylaxis Current Visit: Yes Status: Acute Assessment and plan: Patient is on heparin drip. (2) Peristomal hernia Current Visit: Yes Status: Acute Assessment and plan: Had surgery. NG tube removed, started clear liquid diet per surgical team, IV fluid. On TPN (3) Postoperative intestinal obstruction Current Visit: Yes Status: Acute Assessment and plan: Had suegery POD #5. NG tube removed. Clear liquid diet started per surgical consult. on TPN. Patient is at high risk because she has a medical problem need surgical intervention. (4) Pulmonary embolism Current Visit: Yes Status: Acute Assessment and plan: Continue heparin drip . Discussed with patient, she would like to have Coumadin for long-term anticoagulation. We will switch to Coumadin if patient does not need further surgical procedure and start eating. Patient is at high risk because she is on heparin drip, need close monitoring. Qualifiers: Pulmonary embolism type: other Chronicity: unspecified Acute cor pulmonale presence: without acute cor pulmonale Qualified Code(s): I26.99 - Other pulmonary embolism without acute cor pulmonale (5) Hypothyroidism Current Visit: No Status: Acute Assessment and plan: Stable. will restart synthroid. Qualifiers: Hypothyroidism type: unspecified Qualified Code(s): E03.9 - Hypothyroidism , unspecified (6) Essential hypertension Current Visit: No Status: Chronic Assessment and plan: BP is stable. Medications on hold because of nothing by mouth. May restart if blood pressure is high - Time Spent With Patient Greater than 35 minutes - Subjective Interval history: Patient is a 65-year-old female admitted for small bowel obstruction after surgery. Her past medical history is significant for colon cancer, hypertension , and DVT and PE. On this admission, she was also found acute PE. Patient was seen and examined. Patient had surgery to resolve SBO. POD 5. Pt c /o pain. Still on NG tube with low suction. Vitals stable. Heparin drip is restarted for PE. On TPN. Surgical consult on case. - Constitutional Vitals: Temp Pulse Resp BP Pulse Ox 97.9 F 94 14 128/88 96 06/03/16 20:02 06/03/16 18:00 06/03/16 18:00 06/03/16 18:00 06/03/16 18:00 General appearance: Present: cooperative, A&O X 3, pleasant, no acute distress, answers questions appropriately - Head Head exam: Present: atraumatic, normocephalic - Eye Eye exam: Present: PERRL, conjuntiva pink, sclera anicteric Pupils: Present: PERRL - Neck Neck exam general surgery: Present: supple, trachea midline. Absent: lymphadenopathy - Respiratory Respiratory exam: Present: CTAB. Absent: accessory muscle use, rales, rhonchi, wheezes - Cardiovascular Cardiovascular exam: Present: RRR, +S1, +S2. Absent: diastolic murmur, gallop, rubs, systolic murmur - GI/Abdominal GI/Abdominal exam: Present: hypoactive bowel sounds, soft, tenderness, no peritoneal signs. Absent: distended - Extremities Exam Extremities exam: Present: warm, radial pulses palpable and symetrical. Absent : calf tenderness, cyanotic, pedal edema - Neurological Exam Neurological exam: Present: CN II-XII intact, oriented X3, no focal deficits. Absent: pronater drift, facial droop, speech deficit - Skin Skin exam: Present: dry, intact Internal Medicine: Result - Labs CBC & Chem 7: 06/03/16 05:30 06/03/16 05:30 Labs: Short CBC 06/03/16 Range/Units 05:30 WBC 3.8 L (4.3-11.1) K/mcL Hgb 9.6 L (11.5-15.4) g/dL Hct 29.2 L (35.3-44.9) % Plt Count 101 L (140-400) K/mcL Neutrophils # 2.3 (1.6-8.9) K/mcL BMP 06/03/16 05:30 Sodium 140 Potassium 3.1 L Chloride 105 Carbon Dioxide 31 H BUN 5 L Creatinine 0.57 Glucose 131 H Calcium 8.1 L - ABG Interpretation ABG results: PT/INR, D-dimer PT 12.7 Seconds (9.4-12.1) H 06/01/16 16:36 - VTE Documentation of Mechanical Device: Intermittent pneumatic compression device Consult Discharge Plan - Plan Referrals: NO,PCP [Non-Partnered Physician] -
[2016-06-03] MEDS ORDERED: Potassium Phosphate 44 MEQ in 0.9 % Sodium Chloride 250 ML IVPB ONE (20:26)
[2016-06-04] MEDS: *HR* Metoprolol 5 MG/5 ML VIAL IVP SCH ×2 (00:02→05:52)
[2016-06-04] MEDS: Acetaminophen IV 1,000 MG/100 ML INFUS..BTL IVPB SCH ×2 (01:34→08:31)
[2016-06-04 03:59] LABS: Basophils % 0.3 %; Eosinophils # 0.8 K/mcL (0.0-0.6); Hematocrit 29.7 % (35.3-44.9); Hemoglobin 9.5 g/dL (11.5-15.4); Immature Granulocytes % 3.6 % (0-4); Lymphocytes # 0.8 K/mcL (0.6-4.6); Lymphocytes % 13.7 %; Mean Corpuscular Hemoglobin 30.2 pg (28.0-33.3); Mean Corpuscular Volume 94.3 fL (83.0-100.0); Monocytes # 0.5 K/mcL (0.0-1.3); Neutrophils # 3.6 K/mcL (1.6-8.9); Platelet Count 124 K/mcL (140-400); Red Blood Count 3.15 M/mcL (3.82-4.97); Red Cell Distribution Width 13.2 % (11.5-14.5); Segmented Neutrophils % 61.4 %
[2016-06-04 04:11] LABS: BUN/Creatinine Ratio 14 (6-26); Blood Urea Nitrogen 8 mg/dL (7-20); Calcium 7.8 mg/dL (8.6-10.8); Carbon Dioxide 27 mEq/L (19-29); Chloride 105 mEq/L (98-109); Glucose 149 mg/dL (70-99); Magnesium 1.5 mg/dL (1.6-2.6); Osmolality,Calculated 289 (280-300); Potassium 4.1 mEq/L (3.5-4.5); Sodium 139 mEq/L (136-145); eGFR For African Americans > 60 (> 60); eGFR For Non-African Americans > 60 (> 60)
[2016-06-04 04:12] LABS: Phosphorous 3.2 mg/dL (2.3-4.7)
[2016-06-04 04:26] LABS: Platelet Estimate Slight Decrease (Normal)
[2016-06-04 04:27] LABS: Reactive Lymphocytes Present (Not Present)
[2016-06-04] MEDS: Ringers Solution, Lactated 1,000 ML IVC SCH (07:13)
[2016-06-04] MEDS: Pantoprazole 40 MG VIAL IVP SCH (08:23)
[2016-06-04] MEDS: *HR* HYDROmorphone 20 MG/20 ML PCA IV PRN ×2 (09:21→18:18)
--- NOTE | 2016-06-04 10:46 | Internal Med Progress Note ---
Date of Encounter: 06/04/16 Time of Encounter: 10:40 - Assessment and plan (1) Partial small bowel obstruction Current Visit: Yes Status: Acute Assessment and plan: Surgery on board, recommendations appreciated. Improving clinically; ex- laparotomy with reduction of SBO, SBR and movement of ostomy POD#6; post-op care per Surgery; diet advanced to full liquids; continue IV hydration and TPN, to be followed by Contact Lens Blocker. NG tube can be removed but patient wanted to make sure she can tolerate diet well as it has been a difficult placement; Will change home meds to oral form; patent noted to have mild tachycardia, sinus ; could be due to pain and recent surgery; restart home dose of Atenolol and monitor closely; PT evaluation pending; (2) Pulmonary embolism Current Visit: Yes Status: Acute Assessment and plan: provoked PE due to recent abdominal surgery; continue IV Heparin drip and start Coumadin; Qualifiers: Pulmonary embolism type: other Chronicity: acute Acute cor pulmonale presence: without acute cor pulmonale Qualified Code(s): I26.99 - Other pulmonary embolism without acute cor pulmonale (3) History of colon cancer Current Visit: Yes Status: Chronic (4) Hypothyroidism Current Visit: Yes Status: Chronic Assessment and plan: continue Levothyroxine; Qualifiers: Hypothyroidism type: unspecified Qualified Code(s): E03.9 - Hypothyroidism , unspecified (5) Essential hypertension Current Visit: Yes Status: Chronic - Subjective Interval history: Reports generalized weakness and fatigue. Left-sided abdominal pain but no nausea, vomiting. Colostomy is noted to have dark colored output. - Constitutional Vitals: Temp Pulse Resp BP Pulse Ox 98 F 106 18 151/91 96 06/04/16 09:02 06/04/16 09:02 06/04/16 09:02 06/04/16 09:02 06/04/16 09:02 General appearance: Present: A&O X 3, answers questions appropriately - Respiratory Respiratory exam: Present: CTAB. Absent: accessory muscle use, rales, rhonchi, wheezes - Cardiovascular Cardiovascular exam: Present: RRR, +S1, +S2, tachycardia. Absent: diastolic murmur, gallop, rubs, systolic murmur - GI/Abdominal GI/Abdominal exam: Present: diminished bowel sounds (On the left side), normal bowel sounds, soft, no peritoneal signs. Absent: distended, tenderness Additional comments: Right lower colostomy in place, with dark-colored stool output. Left-sided vertical surgical incision with dry intact dressing and CARIDAD drain with minimal bloody fluid. - Neurological Exam Neurological exam: Present: CN II-XII intact, oriented X3, no focal deficits. Absent: pronater drift, facial droop, speech deficit Internal Medicine: Result - Labs CBC & Chem 7: 06/04/16 03:50 06/04/16 03:50 Labs: Short CBC 06/04/16 Range/Units 03:50 WBC 5.8 D (4.3-11.1) K/mcL Hgb 9.5 L (11.5-15.4) g/dL Hct 29.7 L (35.3-44.9) % Plt Count 124 L (140-400) K/mcL Neutrophils # 3.6 (1.6-8.9) K/mcL BMP 06/04/16 03:50 Sodium 139 Potassium 4.1 D Chloride 105 Carbon Dioxide 27 BUN 8 Creatinine 0.58 Glucose 149 H Calcium 7.8 L - ABG Interpretation ABG results: PT/INR, D-dimer PT 12.7 Seconds (9.4-12.1) H 06/01/16 16:36 - VTE Documentation of Mechanical Device: Intermittent pneumatic compression device Consult Discharge Plan - Plan Referrals: Myah Perry, NICHO [Primary Care Provider] - NO,PCP [Non-Partnered Physician] -
--- NOTE | 2016-06-04 11:10 | General Surgery Progress Note ---
Date of Encounter: 06/04/16 Time of Encounter: 10:30 - Assessment and Plan (1) Partial small bowel obstruction Current Visit: Yes Status: Acute POD #6 from exploratory lap, reduction of SBO, SBR, movement of ostomy Remove NG tube when patient is ready- clamped at this time Advance to full liqud diet with enlive protein supplements Continue TPN therapy (TFR 60ml/hour) IV fluids + TPN at 60ml/hour Stave Jointer following for TPN recommendations- consider decreasing to 50ml/hour if tolerates full liquids Out of bed to chair TID, Ambulate Pain control- transition to oral pain medication Incentive Spirometer every 1 hour while awake (2) Peristomal hernia Current Visit: Yes Status: Acute POD #6 from exploratory lap, reduction of SBO, SBR, movement of ostomy Remove NG tube when patient is ready- clamped at this time Advance to full liqud diet with enlive protein supplements Continue TPN therapy (TFR 60ml/hour) IV fluids + TPN at 60ml/hour Stave Jointer following for TPN recommendations- consider decreasing to 50ml/hour if tolerates full liquids Out of bed to chair TID, Ambulate Pain control- transition to oral pain medication Incentive Spirometer every 1 hour while awake (3) Pulmonary embolism Current Visit: Yes Status: Acute Management per hospitalist: Confirmed by CTA, which showed acute posterior basal segment right lower lobe PE Continue heparin gtt Qualifiers: Pulmonary embolism type: other Chronicity: unspecified Acute cor pulmonale presence: without acute cor pulmonale Qualified Code(s): I26.99 - Other pulmonary embolism without acute cor pulmonale (4) Protein-calorie malnutrition, moderate Current Visit: Yes Status: Acute Continue TPN therapy- may consider decreasing rate if patient tolerates full liquids Advance to full liquids with protein supplements TID (5) DVT prophylaxis Current Visit: Yes Status: Acute Continue compression stocking to bilateral lower extremities Continue EPCD's to bilateral lower extremities Patient currently has PE and is at high risk for DVT Continue heparin gtt Dopplers negative for any acute DVT in lower extremities Subjective Patient reports: no new complaints, feels better, still having pain, pain is less, tolerating liquids well, voiding w/o difficulty, flatus, bowel movement ( via ostomy), afebrile, other (Patient states that she would like to continue NG tube clamped at this time, no nausea last night) Objective Vital Signs - Last 8 Hours Temp Pulse Resp BP Pulse Ox 06/04/16 11:04 97.8 F 110 16 150/104 96 06/04/16 09:02 98 F 106 18 151/91 96 06/04/16 07:45 100 06/04/16 06:15 97.3 F L 110 18 170/79 96 06/04/16 05:32 102 16 144/96 97 06/04/16 04:00 98.2 F 114 16 159/106 95 06/04/16 03:45 93 Intake and Output 06/03/16 06/04/16 06/04/16 23:59 07:59 15:59 Intake Total 1040 / 1040 761 / 761 Output Total 450 / 450 1180 / 1180 150 / 150 Balance 590 / 590 -419 / -419 -150 / -150 Intake: IV Fluids 600 / 600 761 / 761 Heparin 25,000 UNIT/500 500 / 500 151 / 151 ML D5W 25,000 unit In 500 ml @ 12 UNIT/KG/HR 18. 432 mls/hr IVC .Q24H [facility] Rx#:[id number] Ofirmev 1,000 mg In 100 100 / 100 100 / 100 ml @ 400 mls/hr IVPB Q6H [facility] Rx#:[id number] Intralipid 20% 250 ML @ 250 / 250 21 mls/hr IVPB DAILY@1700 [facility] Rx#:[id number] Potassium Phosphate 44 260 / 260 MEQ In 0.9 % Sodium Chloride 250 ML @ 40 mls/ hr IVPB ONCE [facility] Rx#: [id number] Oral 440 / 440 Output: Urine 50 / 50 Stool 200 / 200 175 / 175 150 / 150 Catheter 200 / 200 1000 / 1000 Wound Drainage 0 / 0 5 / 5 Left Lower Abdomen 0 / 0 5 / 5 Other: Meal Dinner Percent of Meal Consumed 75% Stool Size Small Stool Consistency loose Stool Characteristics Mucoid Stool Color Green Green Weight 79.152 kg Blood Glucose* 128 Patient Weight 06/04/16 23:59 Weight 79.152 kg - General physical appearance well developed, no distress - Eyes normal ocular movement - ENT normal mucosa, atraumatic, normocephalic - Neck Neck exam: trachea midline - Respiratory normal respiratory effort, clear to auscultation - Cardiovascular Cardiovascular exam: Present: tachycardia - Abdomen Abdomen: Present: bowel sounds present, soft, tender (expected post-operative tenderness), wound (NG tube clamped; ostomy pink and moist with liquid/brown stool and flatus; CARIDAD drain to bulb suction with serous drainage noted (5ml since midnight)) - Incision Incision: Present: clean and dry, intact - Neurologic CN 2-12 grossly intact - Psychiatric oriented to time, oriented to person, oriented to place, speech is normal, memory intact - Labs 06/04/16 03:50 06/04/16 03:50 Diabetes panel 06/04/16 Range/Units 03:50 Sodium 139 (136-145) mEq/L Potassium 4.1 D (3.5-4.5) mEq/L Chloride 105 (98-109) mEq/L Carbon Dioxide 27 (19-29) mEq/L BUN 8 (7-20) mg/dL Creatinine 0.58 (0.57-1.11) mg/dL Glucose 149 H (70-99) mg/dL Calcium 7.8 L (8.6-10.8) mg/dL Calcium panel 06/04/16 Range/Units 03:50 Calcium 7.8 L (8.6-10.8) mg/dL Phosphorus 3.2 D (2.3-4.7) mg/dL Pituitary panel 06/04/16 Range/Units 03:50 Sodium 139 (136-145) mEq/L Potassium 4.1 D (3.5-4.5) mEq/L Chloride 105 (98-109) mEq/L Carbon Dioxide 27 (19-29) mEq/L BUN 8 (7-20) mg/dL Creatinine 0.58 (0.57-1.11) mg/dL Glucose 149 H (70-99) mg/dL Calcium 7.8 L (8.6-10.8) mg/dL Adrenal panel 06/04/16 Range/Units 03:50 Sodium 139 (136-145) mEq/L Potassium 4.1 D (3.5-4.5) mEq/L Chloride 105 (98-109) mEq/L Carbon Dioxide 27 (19-29) mEq/L BUN 8 (7-20) mg/dL Creatinine 0.58 (0.57-1.11) mg/dL Glucose 149 H (70-99) mg/dL Calcium 7.8 L (8.6-10.8) mg/dL - VTE Documentation of Mechanical Device: Intermittent pneumatic compression device Consult Discharge Plan - Plan Referrals: NO,PCP [Non-Partnered Physician] - - Attending Attestation I examined this patient and my medical decision-making was reviewed with the SHIP MATE/PA/Advanced Practice Nurse/Resident Physician. I agree with the documented findings, disposition and treatment plan as described except to the extent set forth below.
[2016-06-04] MEDS ORDERED: Clinimix E 5%-15% SOLUTION 2,000 ML with MVI, adult with vitamin K 10 ML IV SCH (17:00)
[2016-06-04] MEDS ORDERED: 0.9 % Sodium Chloride 1,000 ML ONE (17:43)
[2016-06-04] MEDS: *HR* Warfarin 5 MG TABLET PO SCH (18:09)
[2016-06-04] MEDS: Heparin 25,000 UNIT/500 ML D5W 25,000 UNIT/500 ML MLS IVC SCH (18:10)
[2016-06-04] MEDS: *HR* HYDROcodone/Acet 10/325 mg TABLET PO PRN (18:42)
[2016-06-04] MEDS: *HR* HYDROmorphone (PF) 1 MG/ML SYRINGE IVP PRN ×2 (19:47→21:46)
[2016-06-04] MEDS ORDERED: Mag Hydrox/Al Hydrox/Simeth 30 ML UDC PO PRN (21:19)
[2016-06-04] MEDS ORDERED: GI Cocktail 40 ML EACH PO ONE (21:21)
[2016-06-05] MEDS: *HR* HYDROcodone/Acet 10/325 mg TABLET PO PRN (01:05)
[2016-06-05 04:55] LABS: Hematocrit 29.4 % (35.3-44.9); Hemoglobin 9.8 g/dL (11.5-15.4); Mean Corpuscular HGB Conc 33.3 g/dL (31.6-35.5); Mean Corpuscular Hemoglobin 31.2 pg (28.0-33.3); Mean Corpuscular Volume 93.6 fL (83.0-100.0); Mean Platelet Volume 10.4 fL (9.4-12.4); Platelet Count 114 K/mcL (140-400); Red Blood Count 3.14 M/mcL (3.82-4.97); Red Cell Distribution Width 13.6 % (11.5-14.5)
[2016-06-05 05:00] LABS: INR 1.1; Prothrombin Time 11.4 Seconds (9.4-12.1)
[2016-06-05] MEDS: *HR* Promethazine 25 MG/ML VIAL IVP PRN (05:07)
[2016-06-05 05:10] LABS: Magnesium 1.5 mg/dL (1.6-2.6)
[2016-06-05 05:23] LABS: Lymphocytes # 1.1 K/mcL (0.6-4.6)
[2016-06-05] MEDS: *HR* Heparin 5,000 UNIT/ML VIAL IVP PRN (05:25)
[2016-06-05 06:26] LABS: Eosinophils # 0.3 K/mcL (0.0-0.6); Monocytes # 0.3 K/mcL (0.0-1.3); Neutrophils # 4.4 K/mcL (1.6-8.9); Platelet Estimate Slight Decrease (Normal); Reactive Lymphocytes Present (Not Present)
[2016-06-05 06:27] LABS: Microcytosis Present (Not Present); Tear Drop Cells 1+ (Not Present)
[2016-06-05] MEDS: Pantoprazole 40 MG VIAL IVP SCH (09:29)
--- NOTE | 2016-06-05 10:08 | General Surgery Progress Note ---
Date of Encounter: 06/05/16 Time of Encounter: 09:30 - Assessment and Plan (1) Partial small bowel obstruction Current Visit: Yes Status: Acute POD #7 from exploratory lap, reduction of SBO, SBR, movement of ostomy NG tube removed yesterday Continue full liqud diet with enlive protein supplements Continue TPN therapy (TFR 60ml/hour) IV fluids + TPN at 60ml/hour Failure Analysis Technician following for TPN recommendations- consider decreasing TPN when tolerating full liquids consistently Out of bed to chair TID, Ambulate Pain control- transition to oral pain medication Incentive Spirometer every 1 hour while awake (2) Peristomal hernia Current Visit: Yes Status: Acute POD #7 from exploratory lap, reduction of SBO, SBR, movement of ostomy NG tube removed yesterday Continue full liqud diet with enlive protein supplements Continue TPN therapy (TFR 60ml/hour) IV fluids + TPN at 60ml/hour Failure Analysis Technician following for TPN recommendations- consider decreasing TPN when tolerating full liquids consistently Out of bed to chair TID, Ambulate Pain control- transition to oral pain medication Incentive Spirometer every 1 hour while awake (3) Pulmonary embolism Current Visit: Yes Status: Acute Management per hospitalist: Confirmed by CTA, which showed acute posterior basal segment right lower lobe PE Continue heparin gtt Transition to oral anticoagulation- management per hospitalist INR- 1.1 Qualifiers: Pulmonary embolism type: other Chronicity: acute Acute cor pulmonale presence: without acute cor pulmonale Qualified Code(s): I26.99 - Other pulmonary embolism without acute cor pulmonale (4) Protein-calorie malnutrition, moderate Current Visit: Yes Status: Acute Continue TPN therapy- may consider decreasing TPN when tolerating full liquids consistently Continue full liquids with protein supplements TID (5) DVT prophylaxis Current Visit: Yes Status: Acute Continue EPCD's to bilateral lower extremities Patient currently has PE and is at high risk for DVT Continue heparin gtt Transition to oral anticoagulation per hospitalist Dopplers negative for any acute DVT in lower extremities Subjective Patient reports: no new complaints, tolerating liquids well (full liquids; not much appetite this morning), voiding w/o difficulty, flatus, bowel movement ( via ostomy), nausea ( resolved with medication), afebrile Objective Vital Signs - Last 8 Hours Temp Pulse Resp BP 06/05/16 09:46 115 06/05/16 07:51 98.7 F 110 16 137/91 06/05/16 03:36 98.6 F 99 18 151/98 Intake and Output 06/04/16 06/05/16 06/05/16 23:59 07:59 15:59 Intake Total 469 / 469 0 / 0 0 / 0 Output Total 350 / 350 950 / 950 1155 / 1155 Balance 119 / 119 -950 / -950 -1155 / -1155 Intake: IV Fluids 349 / 349 0 / 0 Heparin 25,000 UNIT/500 349 / 349 0 / 0 ML D5W 25,000 unit In 500 ml @ 12 UNIT/KG/HR 18. 432 mls/hr IVC .Q24H [facility] Rx#:[id number] Oral 120 / 120 0 / 0 Output: Urine 350 / 350 950 / 950 900 / 900 Stool 250 / 250 Wound Drainage 0 / 0 0 / 0 5 / 5 Left Lower Abdomen 0 / 0 0 / 0 5 / 5 Other: Meal Dinner Breakfast Percent of Meal Consumed 50% 0% Weight 80.7 kg Blood Glucose* 141 163 Patient Weight 06/05/16 23:59 Weight 80.7 kg - General physical appearance well developed, no distress - Eyes normal ocular movement - ENT normal mucosa, atraumatic, normocephalic - Neck Neck exam: trachea midline - Respiratory normal respiratory effort, clear to auscultation - Cardiovascular Cardiovascular exam: Present: tachycardia - Abdomen Abdomen: Present: bowel sounds present, soft, tender (expected post-operative tenderness), wound (Ostomy pink and moist with liquid stool and flatus; CARIDAD drain to bulb suction with serous drainage noted (5ml past 24 hours)) - Incision Incision: Present: approximated (Small amount of serousang. drainage noted at bottom of incision) - Neurologic CN 2-12 grossly intact - Psychiatric oriented to time, oriented to person, oriented to place, speech is normal, memory intact - Labs 06/05/16 04:28 06/04/16 03:50 Calcium panel 06/05/16 Range/Units 04:28 Phosphorus 2.0 L (2.3-4.7) mg/dL - VTE Documentation of Mechanical Device: Intermittent pneumatic compression device Consult Discharge Plan - Plan Referrals: Myah Perry, PHTHALIC ACID PURIFIER [Primary Care Provider] - NO,PCP [Non-Partnered Physician] - - Attending Attestation I examined this patient and my medical decision-making was reviewed with the SENIOR INFORMATION SECURITY ENGINEER/PA/Advanced Practice Nurse/Resident Physician. I agree with the documented findings, disposition and treatment plan as described except to the extent set forth below.
[2016-06-05] MEDS ORDERED: Potassium Phosphate 44 MEQ in 0.9 % Sodium Chloride 250 ML IVPB ONE (10:26)
[2016-06-05] MEDS ORDERED: Magnesium Sulfate 2 GM in D5% in Water 100 ML IVPB ONE (10:26)
--- NOTE | 2016-06-05 10:31 | Internal Med Progress Note ---
Date of Encounter: 06/05/16 Time of Encounter: 10:27 - Assessment and plan (1) Hypomagnesemia Current Visit: Yes Status: Acute Assessment and plan: Supplement with IV magnesium sulfate. Continue to monitor electrolytes closely and adjust TPN. Dietitians following. (2) Hypophosphatemia Current Visit: Yes Status: Acute Assessment and plan: Supplement with IV potassium phosphate. Monitor closely. (3) Tachycardia Current Visit: Yes Status: Acute Assessment and plan: Noted to have persistent sinus tachycardia, multifactorial etiology-underlying PE, recent surgery, dehydration, pain and fatigue. Continue current management and increase atenolol to 100 mg daily. (4) Partial small bowel obstruction Current Visit: Yes Status: Acute Assessment and plan: Surgery on board, recommendations appreciated. Uncomplicated postoperative course but clinically deconditioned and fatigued; ex-laparotomy with reduction of SBO, SBR and movement of ostomy POD#7; post-op care per Surgery; diet advanced to full liquids; continue IV hydration and TPN, to be followed by Sticker Operator. NG tube has been discontinued. Goal to lower rate of TPN when patient is able to tolerate full liquids consistently. PT evaluation recommends placement in extended care facility, however patient declines this and would like to be discharged home. Continue daily physical therapy while in house. director of community services consult. (5) Pulmonary embolism Current Visit: Yes Status: Acute Assessment and plan: provoked PE due to recent abdominal surgery; continue IV Heparin drip and Coumadin; INR noted to be 1.1. (6) History of colon cancer Current Visit: Yes Status: Chronic (7) Hypothyroidism Current Visit: Yes Status: Chronic Assessment and plan: continue Levothyroxine; Qualifiers: Hypothyroidism type: unspecified Qualified Code(s): E03.9 - Hypothyroidism , unspecified (8) Essential hypertension Current Visit: Yes Status: Chronic Assessment and plan: Blood pressure noted to be well controlled. Continue home medications. - Subjective Interval history: Noted to be drowsy and weak. Reports generalized weakness, poor appetite and fatigue. Unable to work with physical therapy due to weakness. Noted to have stool output in colostomy but reports feeling full and not feeling like eating. - Constitutional Vitals: Temp Pulse Resp BP Pulse Ox 98.7 F 115 16 137/91 94 L 06/05/16 07:51 06/05/16 09:46 06/05/16 07:51 06/05/16 07:51 06/04/16 20:28 General appearance: Present: A&O X 3 (Very tired), answers questions appropriately - Respiratory Respiratory exam: Present: CTAB. Absent: accessory muscle use, rales, rhonchi, wheezes - Cardiovascular Cardiovascular exam: Present: RRR, +S1, +S2, tachycardia. Absent: diastolic murmur, gallop, rubs, systolic murmur - GI/Abdominal GI/Abdominal exam: Present: normal bowel sounds, soft, no peritoneal signs. Absent: distended, tenderness Additional comments: Right lower colostomy with dark liquid stool. Left-sided vertical surgical incision with intact dressing. Improving tenderness. - Extremities Exam Extremities exam: Present: full ROM, warm, radial pulses palpable and symetrical. Absent: calf tenderness, cyanotic, pedal edema Internal Medicine: Result - Labs CBC & Chem 7: 06/05/16 04:28 06/06/16 04:30 Labs: Short CBC 06/05/16 Range/Units 04:28 WBC 6.3 (4.3-11.1) K/mcL Hgb 9.8 L (11.5-15.4) g/dL Hct 29.4 L (35.3-44.9) % Plt Count 114 L (140-400) K/mcL Neutrophils # 4.4 (1.6-8.9) K/mcL - ABG Interpretation ABG results: PT/INR, D-dimer PT 11.4 Seconds (9.4-12.1) 06/05/16 04:28 - VTE Documentation of Mechanical Device: Intermittent pneumatic compression device Consult Discharge Plan - Plan Referrals: Myah Perry CNP [Primary Care Provider] - NO,PCP [Non-Partnered Physician] -
[2016-06-05] MEDS: Heparin 25,000 UNIT/500 ML D5W 25,000 UNIT/500 ML MLS IVC SCH (15:17)
[2016-06-05] MEDS ORDERED: Ondansetron 4 MG/2 ML VIAL IVP PRN (15:44)
[2016-06-05] MEDS ORDERED: *HR* Promethazine 25 MG/ML VIAL IVP PRN (15:45)
[2016-06-05] MEDS ORDERED: Clinimix E 5%-15% SOLUTION 2,000 ML with MVI, adult with vitamin K 10 ML, Sodium Phos... IV SCH (17:00)
[2016-06-05] MEDS: *HR* Warfarin 5 MG TABLET PO SCH (17:42)
[2016-06-05] MEDS: Acetaminophen 325 MG TABLET PO PRN (17:45)
[2016-06-05] MEDS: *HR* HYDROmorphone (PF) 1 MG/ML SYRINGE IVP PRN (22:35)
[2016-06-06] MEDS: Acetaminophen 325 MG TABLET PO PRN ×2 (00:45→17:18)
[2016-06-06] MEDS: *HR* HYDROmorphone (PF) 1 MG/ML SYRINGE IVP PRN ×7 (00:48→22:29)
[2016-06-06 05:24] LABS: INR 1.3; Prothrombin Time 14.4 Seconds (9.4-12.1)
[2016-06-06 06:15] LABS: BUN/Creatinine Ratio 22 (6-26); Blood Urea Nitrogen 13 mg/dL (7-20); Calcium 8.2 mg/dL (8.6-10.8); Carbon Dioxide 31 mEq/L (19-29); Chloride 105 mEq/L (98-109); Glucose 135 mg/dL (70-99); Magnesium 1.9 mg/dL (1.6-2.6); Osmolality,Calculated 294 (280-300); Phosphorous 2.9 mg/dL (2.3-4.7); Potassium 3.5 mEq/L (3.5-4.5); Sodium 141 mEq/L (136-145); eGFR For African Americans > 60 (> 60); eGFR For Non-African Americans > 60 (> 60)
[2016-06-06] MEDS: Heparin 25,000 UNIT/500 ML D5W 25,000 UNIT/500 ML MLS IVC SCH ×2 (07:35→23:56)
[2016-06-06] MEDS: *HR* HYDROcodone/Acet 10/325 mg TABLET PO PRN ×2 (09:49→20:44)
--- NOTE | 2016-06-06 10:08 | Internal Med Progress Note ---
Date of Encounter: 06/06/16 Time of Encounter: 10:07 - Assessment and plan (1) Hypomagnesemia Current Visit: Yes Status: Resolved Assessment and plan: Improved with supplementation along with adjustments made to TPN. (2) Hypophosphatemia Current Visit: Yes Status: Resolved Assessment and plan: Improved with supplementation along with adjustments made to TPN. (3) Tachycardia Current Visit: Yes Status: Acute Assessment and plan: Noted to have improved. multifactorial etiology-underlying PE, recent surgery, dehydration, pain and fatigue. Continue current management and atenolol. (4) Partial small bowel obstruction Current Visit: Yes Status: Acute Assessment and plan: Surgery on board, recommendations appreciated. Uncomplicated postoperative course, also shows clinical improvement today. ex-laparotomy with reduction of SBO, SBR and movement of ostomy POD#8; post-op care per Surgery; diet advanced to soft diet; plan to taper down TPN as she tolerates diet better. Dietitians on board for TPN management. PT evaluation recommends placement in extended care facility, however patient declines this and would like to be discharged home. Continue daily physical therapy while in house. creative services producer consult. (5) Pulmonary embolism Current Visit: Yes Status: Acute Assessment and plan: provoked PE due to recent abdominal surgery; continue IV Heparin drip and Coumadin; INR noted to be 1.3. Qualifiers: Pulmonary embolism type: other Chronicity: acute Acute cor pulmonale presence: without acute cor pulmonale Qualified Code(s): I26.99 - Other pulmonary embolism without acute cor pulmonale (6) History of colon cancer Current Visit: Yes Status: Chronic (7) Hypothyroidism Current Visit: Yes Status: Chronic Qualifiers: Hypothyroidism type: unspecified Qualified Code(s): E03.9 - Hypothyroidism , unspecified (8) Essential hypertension Current Visit: Yes Status: Chronic - Subjective Interval history: Appears much more alert today. Reports feeling a lot better, able to tolerate full liquid diet better. No nausea, vomiting or abdominal pain. Motivated to work with physical therapy. - Constitutional Vitals: Temp Pulse Resp BP Pulse Ox 98.3 F 86 18 164/99 96 06/06/16 07:43 06/06/16 07:43 06/06/16 07:43 06/06/16 07:43 06/06/16 07:43 General appearance: Present: A&O X 3, answers questions appropriately - Respiratory Respiratory exam: Present: CTAB. Absent: accessory muscle use, rales, rhonchi, wheezes - Cardiovascular Cardiovascular exam: Present: RRR, +S1, +S2. Absent: diastolic murmur, gallop, rubs, systolic murmur - GI/Abdominal GI/Abdominal exam: Present: normal bowel sounds, soft, no peritoneal signs. Absent: distended, tenderness - Extremities Exam Extremities exam: Present: full ROM, warm, radial pulses palpable and symetrical. Absent: calf tenderness, cyanotic, pedal edema Internal Medicine: Result - Labs CBC & Chem 7: 06/05/16 04:28 06/06/16 04:30 Labs: BMP 06/06/16 04:30 Sodium 141 Potassium 3.5 Chloride 105 Carbon Dioxide 31 H BUN 13 Creatinine 0.60 Glucose 135 H Calcium 8.2 L - ABG Interpretation ABG results: PT/INR, D-dimer PT 14.4 Seconds (9.4-12.1) H 06/06/16 04:45 - VTE Documentation of Mechanical Device: Intermittent pneumatic compression device Consult Discharge Plan - Plan Referrals: Myah Perry CNP [Primary Care Provider] - NO,PCP [Non-Partnered Physician] -
--- NOTE | 2016-06-06 13:47 | General Surgery Progress Note ---
Date of Encounter: 06/06/16 Time of Encounter: 13:30 - Assessment and Plan (1) Partial small bowel obstruction Current Visit: Yes Status: Acute POD #8 from exploratory lap, reduction of SBO, SBR, movement of ostomy Advance to soft diet with enlive protein supplement May decrease and begin weaning TPN Sewing Machines Salesperson following for TPN recommendations- may wean Out of bed to chair TID, Ambulate Pain control- transition to oral pain medication Incentive Spirometer every 1 hour while awake Midline- 2 eric removed and packed with 1/4 inch iodoform gauze, change daily (2) Peristomal hernia Current Visit: Yes Status: Acute POD #8 from exploratory lap, reduction of SBO, SBR, movement of ostomy Advance to soft diet with enlive protein supplement May decrease and begin weaning TPN Sewing Machines Salesperson following for TPN recommendations- may wean Out of bed to chair TID, Ambulate Pain control- transition to oral pain medication Incentive Spirometer every 1 hour while awake (3) Pulmonary embolism Current Visit: Yes Status: Acute Management per hospitalist: Confirmed by CTA, which showed acute posterior basal segment right lower lobe PE Continue heparin gtt Transition to oral anticoagulation- management per hospitalist INR- 1.3 Qualifiers: Pulmonary embolism type: other Chronicity: acute Acute cor pulmonale presence: without acute cor pulmonale Qualified Code(s): I26.99 - Other pulmonary embolism without acute cor pulmonale (4) Protein-calorie malnutrition, moderate Current Visit: Yes Status: Acute May wean TPN therapy Advance to full liquid diet with protein supplements TID (5) DVT prophylaxis Current Visit: Yes Status: Acute Continue EPCD's to bilateral lower extremities Patient currently has PE and is at high risk for DVT Continue heparin gtt Transition to oral anticoagulation per hospitalist Dopplers negative for any acute DVT in lower extremities Subjective Patient reports: no new complaints, feels better, still having pain, pain is less, tolerating liquids well (full liquids), voiding w/o difficulty, flatus, bowel movement (via colostomy), afebrile Objective Vital Signs - Last 8 Hours Temp Pulse Resp BP Pulse Ox 06/06/16 11:32 98.2 F 82 18 157/105 95 06/06/16 07:43 98.3 F 86 18 164/99 96 Intake and Output 06/05/16 06/06/16 06/06/16 23:59 07:59 15:59 Intake Total 50 / 50 450 / 450 1100 / 1100 Output Total 740 / 740 1175 / 1175 925 / 925 Balance -690 / -690 -725 / -725 175 / 175 Intake: IV Fluids 50 / 50 450 / 450 Heparin 25,000 UNIT/500 50 / 50 450 / 450 ML D5W 25,000 unit In 500 ml @ 12 UNIT/KG/HR 18. 432 mls/hr IVC .Q24H [facility] Rx#:[id number] Oral 1100 / 1100 Output: Urine 425 / 425 875 / 875 600 / 600 Stool 315 / 315 300 / 300 325 / 325 Wound Drainage 0 / 0 0 / 0 0 / 0 Left Lower Abdomen 0 / 0 0 / 0 0 / 0 Other: Meal Lunch Percent of Meal Consumed 100% Stool Consistency liquid liquid Stool Characteristics Normal for Patient Stool Color Brown Blood Glucose* 194 166 172 - General physical appearance well developed, well nourished, no distress - Eyes normal ocular movement - ENT normal mucosa, atraumatic, normocephalic - Neck Neck exam: trachea midline - Respiratory normal respiratory effort, clear to auscultation - Cardiovascular Cardiovascular exam: Present: RRR - Abdomen Abdomen: Present: bowel sounds present, soft, tender (expected post-operative tenderness), wound (Midline with small amount of serousang. noted, no erythema or induration noted; ostomy pink and moist with good function; CARIDAD drain with serous drainage noted (10ml of drainage noted)) - Integumentary no rash - Neurologic CN 2-12 grossly intact - Musculoskeletal normal posture - Psychiatric oriented to time, oriented to person, oriented to place, speech is normal, memory intact - Labs 06/05/16 04:28 06/06/16 04:30 Diabetes panel 06/06/16 Range/Units 04:30 Sodium 141 (136-145) mEq/L Potassium 3.5 (3.5-4.5) mEq/L Chloride 105 (98-109) mEq/L Carbon Dioxide 31 H (19-29) mEq/L BUN 13 (7-20) mg/dL Creatinine 0.60 (0.57-1.11) mg/dL Glucose 135 H (70-99) mg/dL Calcium 8.2 L (8.6-10.8) mg/dL Calcium panel 06/06/16 Range/Units 04:30 Calcium 8.2 L (8.6-10.8) mg/dL Phosphorus 2.9 (2.3-4.7) mg/dL Pituitary panel 06/06/16 Range/Units 04:30 Sodium 141 (136-145) mEq/L Potassium 3.5 (3.5-4.5) mEq/L Chloride 105 (98-109) mEq/L Carbon Dioxide 31 H (19-29) mEq/L BUN 13 (7-20) mg/dL Creatinine 0.60 (0.57-1.11) mg/dL Glucose 135 H (70-99) mg/dL Calcium 8.2 L (8.6-10.8) mg/dL Adrenal panel 06/06/16 Range/Units 04:30 Sodium 141 (136-145) mEq/L Potassium 3.5 (3.5-4.5) mEq/L Chloride 105 (98-109) mEq/L Carbon Dioxide 31 H (19-29) mEq/L BUN 13 (7-20) mg/dL Creatinine 0.60 (0.57-1.11) mg/dL Glucose 135 H (70-99) mg/dL Calcium 8.2 L (8.6-10.8) mg/dL - VTE Documentation of Mechanical Device: Intermittent pneumatic compression device Consult Discharge Plan - Plan Referrals: Myah Perry CNP [Primary Care Provider] - NO,PCP [Non-Partnered Physician] -
[2016-06-06] MEDS ORDERED: Clinimix E 5%-15% SOLUTION 2,000 ML, Amino Acids 10% 0 ML with MVI, adult with vitami... IV SCH (17:00)
[2016-06-06] MEDS: *HR* Warfarin 5 MG TABLET PO SCH (17:21)
[2016-06-06] MEDS: Clinimix E 5%-15% SOLUTION 2,000 ML with MVI, adult with vitamin K 10 ML, Sodium Phos... IV SCH (17:24)
[2016-06-07] MEDS: *HR* HYDROmorphone (PF) 1 MG/ML SYRINGE IVP PRN (00:35)
[2016-06-07 05:20] LABS: Activated Partial Thrombo Time 79.3 Seconds (26.0-36.0)
[2016-06-07 05:32] LABS: Magnesium 1.6 mg/dL (1.6-2.6); Phosphorous 3.2 mg/dL (2.3-4.7); Potassium 4.3 mEq/L (3.5-4.5)
[2016-06-07 05:36] LABS: INR 1.8; Prothrombin Time 19.5 Seconds (9.4-12.1)
[2016-06-07] MEDS ORDERED: *HR* Rivaroxaban 15 MG TABLET PO SCH (09:00)
[2016-06-07] MEDS: Acetaminophen 325 MG TABLET PO PRN (10:08)
--- NOTE | 2016-06-07 10:43 | Internal Med Progress Note ---
Date of Encounter: 06/07/16 Time of Encounter: 09:30 - Assessment and plan (1) Small bowel obstruction Current Visit: Yes Status: Acute (2) Peristomal hernia Current Visit: Yes Status: Acute (3) Protein-calorie malnutrition, moderate Current Visit: Yes Status: Acute Assessment and plan: Continue to wean off TPN Patient is tolerating po (4) Essential hypertension Current Visit: Yes Status: Chronic Assessment and plan: Blood pressure noted to be well controlled. Continue atenolol, (5) Hypothyroidism Current Visit: Yes Status: Chronic Assessment and plan: continue Levothyroxine; Qualifiers: Hypothyroidism type: unspecified Qualified Code(s): E03.9 - Hypothyroidism , unspecified (6) Pulmonary embolism Current Visit: Yes Status: Acute Assessment and plan: INR sub-therapeutic, offered JOSEPH, refused Continue Coumadin Change heparin to lovenox because PE is sub-segmental, sub-massive, patient is hemodynamically stable and is not planned for any procedures/intervention patient needs lifelong anticoagulation She has chosen warfarin, will monitor INR Qualifiers: Pulmonary embolism type: other Chronicity: acute Acute cor pulmonale presence: without acute cor pulmonale Qualified Code(s): I26.99 - Other pulmonary embolism without acute cor pulmonale (7) Hypokalemia Current Visit: Yes Status: Resolved Assessment and plan: Resolved (8) Hypomagnesemia Current Visit: Yes Status: Resolved Assessment and plan: Resolved, Mag WNL today (9) History of colon cancer Current Visit: Yes Status: Chronic Assessment and plan: Consider to Consult oncology Due to history of colon CA , may need lovenox for anticoagulation lifelong - Subjective Interval history: Initial encounter 65 Y/O F POD 9 from exploratory lap, reduction of SBO, SBR, movement of ostomy Seen at bedside, complains of "feeling tired" When discussed about JOSEPH< she refused, stating she preferred Coumadin She is otherwise clinically improving She had an admitting diagnosis of Partial SBO, PE, Hypothyroidism, HTN - Constitutional Vitals: Temp Pulse Resp BP Pulse Ox 98.8 F 85 18 153/98 95 06/07/16 08:45 06/07/16 08:45 06/07/16 08:45 06/07/16 09:30 06/07/16 08:45 General appearance: Present: A&O X 3, answers questions appropriately Exam: Awake, alert, oriented X3 No neurologic deficits, speech is normal, moves all limbs equally VSS Not in any form of distress Flat affect Chest is clear HS S1, S2, RRR Abdomen: R ostomy, bag filled with green liquid, clean dressing, not tender No pedal edema Internal Medicine: Result - Labs CBC & Chem 7: 06/05/16 04:28 06/07/16 04:00 Labs: BMP 06/07/16 04:00 Potassium 4.3 - ABG Interpretation ABG results: PT/INR, D-dimer PT 19.5 Seconds (9.4-12.1) H 06/07/16 04:00 - VTE Documentation of Mechanical Device: Intermittent pneumatic compression device Consult Discharge Plan - Plan Referrals: Myah Perry CNP [Primary Care Provider] -
--- NOTE | 2016-06-07 15:06 | General Surgery Progress Note ---
Date of Encounter: 06/07/16 Time of Encounter: 15:00 - Assessment and Plan (1) Partial small bowel obstruction Current Visit: Yes Status: Acute POD #9 from exploratory lap, reduction of SBO, SBR, movement of ostomy Continue soft diet with enlive protein supplement May wean TPN Cigarette Vendor following for TPN recommendations- may wean Out of bed to chair TID, Ambulate Pain control- transition to oral pain medication Incentive Spirometer every 1 hour while awake Midline- 2 eric removed and packed with 1/4 inch iodoform gauze, change daily Remove CARIDAD drain today (2) Peristomal hernia Current Visit: Yes Status: Acute POD #9 from exploratory lap, reduction of SBO, SBR, movement of ostomy Continue soft diet with enlive protein supplement Wean TPN Cigarette Vendor following for TPN recommendations- may wean Out of bed to chair TID, Ambulate Pain control- transition to oral pain medication Incentive Spirometer every 1 hour while awake (3) Pulmonary embolism Current Visit: Yes Status: Acute Management per hospitalist: Confirmed by CTA, which showed acute posterior basal segment right lower lobe PE Continue heparin gtt Transition to oral anticoagulation- management per hospitalist INR- 1.8 Qualifiers: Pulmonary embolism type: other Chronicity: acute Acute cor pulmonale presence: without acute cor pulmonale Qualified Code(s): I26.99 - Other pulmonary embolism without acute cor pulmonale (4) Protein-calorie malnutrition, moderate Current Visit: Yes Status: Acute May wean TPN therapy Continue soft diet with protein supplements (5) DVT prophylaxis Current Visit: Yes Status: Acute Continue EPCD's to bilateral lower extremities Patient currently has PE and is at high risk for DVT Continue heparin gtt Transition to oral anticoagulation per hospitalist Dopplers negative for any acute DVT in lower extremities Subjective Patient reports: no new complaints, tolerating a regular diet (soft), flatus, bowel movement, afebrile Objective Vital Signs - Last 8 Hours Temp Pulse Resp BP Pulse Ox 06/07/16 12:59 98.2 F 86 18 139/93 96 06/07/16 09:30 153/98 06/07/16 08:45 98.8 F 85 18 166/103 95 Intake and Output 06/06/16 06/07/16 06/07/16 23:59 07:59 15:59 Intake Total 740 / 740 0 / 0 920 / 920 Output Total 550 / 550 1900 / 1900 2640 / 2640 Balance 190 / 190 -1900 / -1900 -1720 / -1720 Intake: IV Fluids 500 / 500 Heparin 25,000 UNIT/500 500 / 500 ML D5W 25,000 unit In 500 ml @ 12 UNIT/KG/HR 18. 432 mls/hr IVC .Q24H [facility] Rx#:[id number] Oral 240 / 240 0 / 0 920 / 920 Output: Urine 400 / 400 1700 / 1700 1875 / 1875 Stool 150 / 150 200 / 200 750 / 750 Wound Drainage 0 / 0 15 15 Left Lower Abdomen 0 / 0 15 Other: Meal Dinner Lunch Percent of Meal Consumed 80% 75% Stool Consistency loose Stool Characteristics Normal for Patient Stool Color Brown Green Weight 71.327 kg Blood Glucose* 138 110 145 Patient Weight 06/07/16 23:59 Weight 71.327 kg - General physical appearance well developed, well nourished, no distress - Eyes normal ocular movement - ENT normal mucosa, atraumatic, normocephalic - Neck Neck exam: trachea midline - Respiratory normal respiratory effort, clear to auscultation - Cardiovascular Cardiovascular exam: Present: RRR - Abdomen Abdomen: Present: bowel sounds present, soft, tender (minimal, expected post- operative tenderness), wound (Midline with packing with small amount of serous drainage noted; Ostomy pink and moist with flatus and stool; CARIDAD drian with scant amount of serous drainage) - Incision Incision: Present: intact, open (small open area with packing noted, small amount of serous drainage present) - Integumentary no rash - Neurologic CN 2-12 grossly intact - Psychiatric oriented to time, oriented to person, oriented to place, speech is normal, memory intact - Labs 06/05/16 04:28 06/07/16 04:00 Diabetes panel 06/07/16 Range/Units 04:00 Potassium 4.3 (3.5-4.5) mEq/L Calcium panel 06/07/16 Range/Units 04:00 Phosphorus 3.2 (2.3-4.7) mg/dL Pituitary panel 06/07/16 Range/Units 04:00 Potassium 4.3 (3.5-4.5) mEq/L Adrenal panel 06/07/16 Range/Units 04:00 Potassium 4.3 (3.5-4.5) mEq/L - VTE Documentation of Mechanical Device: Intermittent pneumatic compression device Consult Discharge Plan - Plan Referrals: Myah Perry CNP [Primary Care Provider] - Eliu Rice DO [Partnered Physician] - (hospital follow-up 7-10 days)
[2016-06-07] MEDS: *HR* Enoxaparin 80 MG/0.8 ML SYRINGE SQ SCH (15:07)
[2016-06-07] MEDS: *HR* HYDROcodone/Acet 10/325 mg TABLET PO PRN ×3 (15:51→23:40)
[2016-06-07] MEDS: Clinimix E 5%-15% SOLUTION 2,000 ML with MVI, adult with vitamin K 10 ML, Sodium Phos... IV SCH (17:46)
[2016-06-07] MEDS: *HR* Warfarin 3 MG TABLET PO SCH (17:51)
[2016-06-08] MEDS: *HR* Enoxaparin 80 MG/0.8 ML SYRINGE SQ SCH ×2 (03:24→14:10)
[2016-06-08] MEDS: *HR* HYDROcodone/Acet 10/325 mg TABLET PO PRN ×5 (03:33→22:57)
[2016-06-08 03:48] LABS: Red Cell Distribution Width 14.1 % (11.5-14.5)
[2016-06-08 03:50] LABS: Hematocrit 28.2 % (35.3-44.9); INR 1.6; Immature Platelets 12.2 % (1.1-6.1); Mean Corpuscular HGB Conc 31.9 g/dL (31.6-35.5); Mean Corpuscular Hemoglobin 30.1 pg (28.0-33.3); Mean Corpuscular Volume 94.3 fL (83.0-100.0); Mean Platelet Volume 11.1 fL (9.4-12.4); Neutrophils # 5.5 K/mcL (1.6-8.9); Nucleated Red Blood Cells 0.3 /100 WBC (0); Red Blood Count 2.99 M/mcL (3.82-4.97)
[2016-06-08 03:52] LABS: Platelet Count 66 K/mcL (140-400)
[2016-06-08 03:54] LABS: Activated Partial Thrombo Time 34.5 Seconds (26.0-36.0)
[2016-06-08 04:11] LABS: Eosinophils # 0.5 K/mcL (0.0-0.6); Lymphocytes # 1.1 K/mcL (0.6-4.6); Monocytes # 0.8 K/mcL (0.0-1.3)
[2016-06-08 04:12] LABS: Hypersegmented Neutrophils Present (Not Present); Large Platelets Present (Not Present); Platelet Estimate Decreased (Normal); Reactive Lymphocytes Present (Not Present)
[2016-06-08] MEDS ORDERED: *HR* HYDROmorphone (PF) 1 MG/ML SYRINGE IVP PRN (08:18)
--- NOTE | 2016-06-08 14:17 | Internal Med Progress Note ---
Date of Encounter: 06/08/16 Time of Encounter: 11:15 - Assessment and plan (1) Small bowel obstruction Current Visit: Yes Status: Acute Assessment and plan: Mgt per surgery (2) Peristomal hernia Current Visit: Yes Status: Acute Assessment and plan: POD 10 Mgt per surgery (3) Protein-calorie malnutrition, moderate Current Visit: Yes Status: Acute Assessment and plan: TPN has been discontinued Patient is tolerating po (4) Essential hypertension Current Visit: Yes Status: Chronic Assessment and plan: Blood pressure noted to be well controlled. Continue atenolol, (5) Hypothyroidism Current Visit: Yes Status: Chronic Assessment and plan: continue Levothyroxine; Qualifiers: Hypothyroidism type: unspecified Qualified Code(s): E03.9 - Hypothyroidism , unspecified (6) Pulmonary embolism Current Visit: Yes Status: Acute Assessment and plan: INR sub-therapeutic, Continue Coumadin and lovenox Monitor INR Patient will need to follow up in INR clinic upon discharge She may be discharged tomorrow a.m Qualifiers: Pulmonary embolism type: other Chronicity: acute Acute cor pulmonale presence: without acute cor pulmonale Qualified Code(s): I26.99 - Other pulmonary embolism without acute cor pulmonale (7) Hypokalemia Current Visit: Yes Status: Resolved Assessment and plan: Resolved (8) Hypomagnesemia Current Visit: Yes Status: Resolved Assessment and plan: Resolved, Mag WNL today (9) History of colon cancer Current Visit: Yes Status: Chronic Assessment and plan: Reports that her CA is not active, she had surgery in 2008 and had no chemo. - Subjective Interval history: 65 Y/O F with an admitting diagnosis of Partial SBO, PE, Hypothyroidism, HTN POD 10 from exploratory lap, reduction of SBO, SBR, movement of ostomy Seen at bedside with spouse, has no complains today, feeling good. - Constitutional Vitals: Temp Pulse Resp BP Pulse Ox 97.8 F 85 16 108/70 95 06/08/16 11:33 06/08/16 11:33 06/08/16 11:33 06/08/16 11:33 06/08/16 11:33 General appearance: Present: A&O X 3, answers questions appropriately Exam: Awake, alert, oriented X3 No neurologic deficits, speech is normal, moves all limbs equally VSS Not in any form of distress Flat affect Chest is clear HS S1, S2, RRR Abdomen: R ostomy, bag filled with green liquid, clean dressing, not tender No pedal edema Internal Medicine: Result - Labs CBC & Chem 7: 06/08/16 03:25 06/07/16 04:00 Labs: Short CBC 06/08/16 Range/Units 03:25 WBC 7.8 (4.3-11.1) K/mcL Hgb 9.0 L (11.5-15.4) g/dL Hct 28.2 L (35.3-44.9) % Plt Count 66 L (140-400) K/mcL Neutrophils # 5.5 (1.6-8.9) K/mcL - ABG Interpretation ABG results: PT/INR, D-dimer PT 17.0 Seconds (9.4-12.1) H 06/08/16 03:25 - VTE Documentation of Mechanical Device: Intermittent pneumatic compression device Consult Discharge Plan - Plan Referrals: Eliu Rice DO [Partnered Physician] - (hospital follow-up 7-10 days) Myah Perry CNP [Primary Care Provider] -
--- NOTE | 2016-06-08 16:13 | General Surgery Progress Note ---
Date of Encounter: 06/08/16 Time of Encounter: 16:10 - Assessment and Plan (1) Partial small bowel obstruction Current Visit: Yes Status: Acute POD #10 from exploratory lap, reduction of SBO, SBR, movement of ostomy Continue soft diet with enlive protein supplement TPN discontinued Out of bed to chair TID, Ambulate oral pain medication Incentive Spirometer every 1 hour while awake Midline- 2 eric removed and packed with 1/4 inch iodoform gauze, change daily (2) Peristomal hernia Current Visit: Yes Status: Acute POD #10 from exploratory lap, reduction of SBO, SBR, movement of ostomy Continue soft diet with enlive protein supplement Out of bed to chair TID, Ambulate Pain control- transition to oral pain medication Incentive Spirometer every 1 hour while awake (3) Protein-calorie malnutrition, moderate Current Visit: Yes Status: Acute Continue soft diet with protein supplements (4) Pulmonary embolism Current Visit: Yes Status: Acute Management per hospitalist: Confirmed by CTA, which showed acute posterior basal segment right lower lobe PE Transition to oral anticoagulation- management per hospitalist INR- 1.6 Qualifiers: Pulmonary embolism type: other Chronicity: acute Acute cor pulmonale presence: without acute cor pulmonale Qualified Code(s): I26.99 - Other pulmonary embolism without acute cor pulmonale (5) DVT prophylaxis Current Visit: Yes Status: Acute Lovenox subq Coumadin started Subjective Patient reports: no new complaints, feels better, tolerating a regular diet ( soft), flatus, bowel movement, afebrile Objective Vital Signs - Last 8 Hours Temp Pulse Resp BP Pulse Ox 06/08/16 11:33 97.8 F 85 16 108/70 95 06/08/16 08:16 98.2 F 87 16 150/87 97 Intake and Output 06/08/16 06/08/16 06/08/16 07:59 15:59 23:59 Intake Total 0 / 0 920 / 920 Output Total 400 / 400 1050 / 1050 Balance -400 / -400 -130 / -130 Intake: Oral 0 / 0 920 / 920 Output: Urine 100 / 100 925 / 925 Stool 300 / 300 125 / 125 Other: Meal Lunch Percent of Meal Consumed 100% Weight 72.07 kg Patient Weight 06/08/16 23:59 Weight 72.07 kg - Additional Exam - General physical appearance well developed, well nourished, no distress - Eyes normal ocular movement - ENT normal mucosa, atraumatic, normocephalic - Neck Neck exam: trachea midline - Respiratory normal respiratory effort, clear to auscultation - Cardiovascular Cardiovascular exam: Present: RRR - Abdomen Abdomen: Present: bowel sounds present, soft, tender (minimal, expected post- operative tenderness), wound (Midline with packing with small amount of serous drainage noted; Ostomy pink and moist with flatus and stool; - Incision Incision: Present: intact, open (small open area with packing noted, small amount of serous drainage present) - Integumentary no rash - Neurologic CN 2-12 grossly intact - Psychiatric oriented to time, oriented to person, oriented to place, speech is normal, memory intact - Labs 06/09/16 03:00 06/07/16 04:00 - VTE Documentation of Mechanical Device: Intermittent pneumatic compression device Consult Discharge Plan - Plan Referrals: Eliu Rice DO [Partnered Physician] - (hospital follow-up 7-10 days) Myah Perry CNP [Primary Care Provider] - Prescriptions: HYDROcodone/Acet 10/325 mg [[place] 10-325 mg] 1 tab PO Q6HR PRN #20 tab PRN Reason: Severe Pain Enoxaparin [Lovenox] 100 mg SQ DAILY #3 syr Warfarin [Coumadin] 6 mg PO 1800 #7 tablet - Attending Attestation I examined this patient and my medical decision-making was reviewed with the MOTOR REBUILDER/PA/Advanced Practice Nurse/Resident Physician. I agree with the documented findings, disposition and treatment plan as described except to the extent set forth below. The patient is seen and evaluated with the resident on morning rounds. The patient has done quite well and is now in very good spirits with a minimal amount of pain. She has excellent ostomy output. She should be ready to go home in the next several days. We will advance her diet. Rene Franco MD FACS
[2016-06-08] MEDS: *HR* Warfarin 3 MG TABLET PO SCH (18:28)
[2016-06-09] MEDS: *HR* Enoxaparin 80 MG/0.8 ML SYRINGE SQ SCH ×2 (02:54→13:13)
[2016-06-09] MEDS: *HR* HYDROcodone/Acet 10/325 mg TABLET PO PRN ×4 (02:56→17:46)
[2016-06-09 03:20] LABS: INR 1.7; Prothrombin Time 18.1 Seconds (9.4-12.1)
--- NOTE | 2016-06-09 10:54 | Physician Discharge Referral ---
Home Health/Hosp Referral Info Transfer to: Home Health Attending Provider: Emanuel Dolan Provider in Charge Post Discharge: PCP - Diagnosis (1) Small bowel obstruction Priority: Primary Status: Acute (2) Peristomal hernia Priority: Primary Status: Acute (3) Protein-calorie malnutrition, moderate Priority: Primary Status: Acute (4) Essential hypertension Priority: Secondary Status: Chronic (5) Hypothyroidism Priority: Secondary Status: Chronic (6) Pulmonary embolism Priority: Primary Status: Acute (7) Hypokalemia Priority: Primary Status: Resolved (8) Hypomagnesemia Priority: Primary Status: Resolved (9) History of colon cancer Priority: Primary Status: Chronic - Respiratory Orders Smoking Cessation: Smoking cessation has been advised. For more information, call the [place] Tobacco Quit Line at 8-079-DHGU-NOW. - Dressing/Wound Care Type of Dressing/Treatments w/Frequency: Daily midline packing - Diet/Nutrition Diet/Nutrition: List: Advanced soft diet, chopped meat enlive protein supplements TID with meals - Activity Activity Orders: Up ad dorothy - Services Needed Following services are medically necessary services: Nursing (INR check , goal INR 2-3), Home Health Aide, Physical Therapy, Occupational Therapy - Transfer Medications Prescriptions: HYDROcodone/Acet 10/325 mg [[place] 10-325 mg] 1 tab PO Q6HR PRN #20 tab PRN Reason: Severe Pain Enoxaparin [Lovenox] 100 mg SQ DAILY #3 syr Warfarin [Coumadin] 6 mg PO 1800 #7 tablet Home Medications: Acetaminophen [Tylenol] 1,000 mg PO Q6HR PRN 05/08/16 [History] Atenolol [Tenormin] 50 mg PO DAILY 05/08/16 [History] Ergocalciferol (VITAMIN D2) [Vitamin D2] 50,000 unit PO TH 05/08/16 [History] Levothyroxine [Synthroid] 150 mcg PO DAILY 05/08/16 [History] Lisinopril [Zestril] 10 mg PO DAILY 05/08/16 [History] Pantoprazole Sodium [Protonix] 40 mg PO DAILY 05/08/16 [History] Docusate [Colace] 100 mg PO BID #30 capsule 05/09/16 [Rx] Enoxaparin [Lovenox] 100 mg SQ DAILY #3 syr 06/09/16 [Rx] HYDROcodone/Acet 10/325 mg [[place] 10-325 mg] 1 tab PO Q6HR PRN #20 tab 06/09/16 [Rx] Warfarin [Coumadin] 6 mg PO 1800 #7 tablet 06/09/16 [Rx] Allergies/Adverse Reactions: Allergies No Known Allergies Allergy (Verified 05/08/16 11:03) Certification: Further, I certify that my clinical findings support that this patient is homebound (i.e. absences from home require considerable and taxing effort and are for medical reasons or anglican services or infrequently or short duration when for other reasons) because: Homebound Reason: Patient requires assistance of a person or device to safely leave home Attestation: My signature below is to certify that this patient is under my care and that I, or nurse practitioner, or a physician's assurance assistant working with me, has a face-to -face encounter with this patient.
--- NOTE | 2016-06-09 10:54 | Discharge Summary ---
Date of Encounter: 06/09/16 Time of Encounter: 10:20 - Discharge Diagnosis (1) Small bowel obstruction Status: Acute (2) Peristomal hernia Status: Acute (3) Protein-calorie malnutrition, moderate Status: Acute (4) Essential hypertension Status: Chronic (5) Hypothyroidism Status: Chronic Qualifiers: Hypothyroidism type: unspecified Qualified Code(s): E03.9 - Hypothyroidism , unspecified (6) Pulmonary embolism Status: Acute Qualifiers: Pulmonary embolism type: other Chronicity: acute Acute cor pulmonale presence: without acute cor pulmonale Qualified Code(s): I26.99 - Other pulmonary embolism without acute cor pulmonale (7) Hypokalemia Status: Resolved (8) Hypomagnesemia Status: Resolved (9) History of colon cancer Status: Chronic - Discharge Medications Prescriptions: HYDROcodone/Acet 10/325 mg [[place] 10-325 mg] 1 tab PO Q6HR PRN #20 tab PRN Reason: Severe Pain Enoxaparin [Lovenox] 100 mg SQ DAILY #3 syr Warfarin [Coumadin] 6 mg PO 1800 #7 tablet Home Medications: Acetaminophen [Tylenol] 1,000 mg PO Q6HR PRN 05/08/16 [History] Atenolol [Tenormin] 50 mg PO DAILY 05/08/16 [History] Ergocalciferol (VITAMIN D2) [Vitamin D2] 50,000 unit PO TH 05/08/16 [History] Levothyroxine [Synthroid] 150 mcg PO DAILY 05/08/16 [History] Lisinopril [Zestril] 10 mg PO DAILY 05/08/16 [History] Pantoprazole Sodium [Protonix] 40 mg PO DAILY 05/08/16 [History] Docusate [Colace] 100 mg PO BID #30 capsule 05/09/16 [Rx] Enoxaparin [Lovenox] 100 mg SQ DAILY #3 syr 06/09/16 [Rx] HYDROcodone/Acet 10/325 mg [[place] 10-325 mg] 1 tab PO Q6HR PRN #20 tab 06/09/16 [Rx] Warfarin [Coumadin] 6 mg PO 1800 #7 tablet 06/09/16 [Rx] Allergies/Adverse Reactions: Allergies No Known Allergies Allergy (Verified 05/08/16 11:03) Date of admission: 05/28/16 02:33 Primary care physician: Myah Perry CNP Consults: 05/30/16 13:19 Consult to Occupational Therapy [CONS] Routine Comment: Evaluate, develop and implement POC Consult to Physical Therapy [CONS] Routine Comment: Evaluate, develop and implement POC 05/31/16 10:07 consult to regulatory scientist [Consult to Nutrition] [CONS] Routine Comment: may decrease TPN and wean to off Consulting Provider: NUTRITION Reason for Dietary Consult: TPN Start and Manage 05/31/16 11:47 Consult to Invasive Line Access Team [CONS] Routine Reason for Consult: Picc Line Insertion Line Type: PICC 06/07/16 06:00 Consult to Live Study Manager [CONS] Routine Reason for SW Consult: discharge with homehealth 06/07/16 08:18 Consult to Case Management [CONS] Routine Comment: Novel oral anticoagulant therapy co-pay/insurance - Patient Status Condition: Fair - Discharge Instructions Follow Up With: Eliu Rice DO [Partnered Physician] - (hospital follow-up 7-10 days) Myah Perry CNP [Primary Care Provider] - Hospital course: Ms. Rivers is a 65 year old female - Time Spent with Patient Total time spent providing and/or coordinating discharge services: - Constitutional Vitals: Temp Pulse Resp BP Pulse Ox 97.9 F 79 18 126/68 96 06/09/16 06:54 06/09/16 06:54 06/09/16 06:54 06/09/16 06:54 06/09/16 06:54 General appearance: Present: A&O X 3, answers questions appropriately - VTE Documentation of Mechanical Device: Intermittent pneumatic compression device
--- NOTE | 2016-06-09 14:50 | Internal Med Progress Note ---
Date of Encounter: 06/09/16 Time of Encounter: 10:00 - Assessment and plan (1) Small bowel obstruction Current Visit: Yes Status: Acute Assessment and plan: Mgt per surgery (2) Peristomal hernia Current Visit: Yes Status: Acute Assessment and plan: POD 11 Mgt per surgery (3) Protein-calorie malnutrition, moderate Current Visit: Yes Status: Acute Assessment and plan: TPN has been discontinued Patient is tolerating po (4) Essential hypertension Current Visit: Yes Status: Chronic Assessment and plan: Blood pressure noted to be well controlled. Continue atenolol, (5) Hypothyroidism Current Visit: Yes Status: Chronic Assessment and plan: continue Levothyroxine; Qualifiers: Hypothyroidism type: unspecified Qualified Code(s): E03.9 - Hypothyroidism , unspecified (6) Pulmonary embolism Current Visit: Yes Status: Acute Assessment and plan: INR sub-therapeutic, Continue Coumadin and lovenox Monitor INR Patient will need to follow up in INR clinic upon discharge She may be discharged tomorrow a.m Qualifiers: Pulmonary embolism type: other Chronicity: acute Acute cor pulmonale presence: without acute cor pulmonale Qualified Code(s): I26.99 - Other pulmonary embolism without acute cor pulmonale (7) Hypokalemia Current Visit: Yes Status: Resolved Assessment and plan: Resolved (8) Hypomagnesemia Current Visit: Yes Status: Resolved Assessment and plan: Resolved, Mag WNL today (9) History of colon cancer Current Visit: Yes Status: Chronic Assessment and plan: Reports that her CA is not active, she had surgery in 2008 and had no chemo. - Subjective Interval history: 65 Y/O F with an admitting diagnosis of Partial SBO, PE, Hypothyroidism, HTN POD 11 from exploratory lap, reduction of SBO, SBR, movement of ostomy Seen at bedside with spouse, has no complains today, feeling good. Patient had assumed her discharge will be done today Several phone calls and attempts by RN and SW showed HH was not ready for hr HH She is aware and informed, will continue current management - Constitutional Vitals: Temp Pulse Resp BP Pulse Ox 98.3 F 74 18 107/70 96 06/09/16 12:19 06/09/16 12:19 06/09/16 12:19 06/09/16 12:19 06/09/16 12:19 General appearance: Present: A&O X 3, no acute distress, answers questions appropriately - Head Head exam: Present: atraumatic, normocephalic - Eye Eye exam: Present: PERRL, conjuntiva pink, sclera anicteric Pupils: Present: PERRL - Neck Neck exam general surgery: Present: supple, trachea midline. Absent: lymphadenopathy - Respiratory Respiratory exam: Present: CTAB. Absent: accessory muscle use, rales, rhonchi, wheezes - Cardiovascular Cardiovascular exam: Present: RRR, +S1, +S2. Absent: diastolic murmur, gallop, rubs, systolic murmur - GI/Abdominal Additional comments: Ostomy bag, surrounding dressing clean and dry - Extremities Exam Extremities exam: Present: warm, radial pulses palpable and symetrical. Absent : calf tenderness, cyanotic, pedal edema - Neurological Exam Neurological exam: Present: alert, CN II-XII intact, oriented X3, no focal deficits. Absent: pronater drift, facial droop, speech deficit - Skin Skin exam: Present: dry, intact Internal Medicine: Result - Labs CBC & Chem 7: 06/09/16 03:00 06/07/16 04:00 Labs: Short CBC 06/09/16 Range/Units 03:00 Hgb 9.6 L (11.5-15.4) g/dL - ABG Interpretation ABG results: PT/INR, D-dimer PT 18.1 Seconds (9.4-12.1) H 06/09/16 03:00 - VTE Documentation of Mechanical Device: Intermittent pneumatic compression device Consult Discharge Plan - Plan Referrals: Eliu Rice DO [Partnered Physician] - (hospital follow-up 7-10 days) Myah Perry CNP [Primary Care Provider] - Prescriptions: HYDROcodone/Acet 10/325 mg [[place] 10-325 mg] 1 tab PO Q6HR PRN #20 tab PRN Reason: Severe Pain Enoxaparin [Lovenox] 100 mg SQ DAILY #3 syr Warfarin [Coumadin] 6 mg PO 1800 #7 tablet
[2016-06-09] MEDS: *HR* Warfarin 3 MG TABLET PO SCH (17:47)
[2016-06-10] MEDS: *HR* HYDROcodone/Acet 10/325 mg TABLET PO PRN ×3 (01:06→10:11)
[2016-06-10] MEDS: *HR* Enoxaparin 80 MG/0.8 ML SYRINGE SQ SCH (01:07)
[2016-06-10 03:56] LABS: Prothrombin Time 21.8 Seconds (9.4-12.1)
[2016-06-10 07:25] VITALS: BP 120/77
--- NOTE | 2016-06-10 09:24 | Discharge Summary ---
Date of Encounter: 06/10/16 Time of Encounter: 09:00 - Discharge Diagnosis (1) Small bowel obstruction Priority: Primary Status: Resolved (2) Peristomal hernia Priority: Primary Status: Acute (3) Protein-calorie malnutrition, moderate Priority: Primary Status: Acute (4) Essential hypertension Priority: Secondary Status: Chronic (5) Hypothyroidism Priority: Secondary Status: Chronic Qualifiers: Hypothyroidism type: unspecified Qualified Code(s): E03.9 - Hypothyroidism , unspecified (6) Pulmonary embolism Priority: Primary Status: Acute Qualifiers: Pulmonary embolism type: other Chronicity: acute Acute cor pulmonale presence: without acute cor pulmonale Qualified Code(s): I26.99 - Other pulmonary embolism without acute cor pulmonale (7) Hypokalemia Priority: Secondary Status: Resolved (8) Hypomagnesemia Priority: Secondary Status: Resolved (9) History of colon cancer Priority: Secondary Status: Chronic - Discharge Medications Prescriptions: HYDROcodone/Acet 10/325 mg [[place] 10-325 mg] 1 tab PO Q6HR PRN #20 tab PRN Reason: Severe Pain Omeprazole [PriLOSEC] 20 mg PO DAILY #30 cap Warfarin [Coumadin] 5 mg PO 1800 #3 tablet Home Medications: Acetaminophen [Tylenol] 1,000 mg PO Q6HR PRN 05/08/16 [History] Atenolol [Tenormin] 50 mg PO DAILY 05/08/16 [History] Ergocalciferol (VITAMIN D2) [Vitamin D2] 50,000 unit PO TH 05/08/16 [History] Levothyroxine [Synthroid] 150 mcg PO DAILY 05/08/16 [History] Lisinopril [Zestril] 10 mg PO DAILY 05/08/16 [History] Pantoprazole Sodium [Protonix] 40 mg PO DAILY 05/08/16 [History] Docusate [Colace] 100 mg PO BID #30 capsule 05/09/16 [Rx] HYDROcodone/Acet 10/325 mg [[place] 10-325 mg] 1 tab PO Q6HR PRN #20 tab 06/09/16 [Rx] Omeprazole [PriLOSEC] 20 mg PO DAILY #30 cap 06/10/16 [Rx] Warfarin [Coumadin] 5 mg PO 1800 #3 tablet 06/10/16 [Rx] Allergies/Adverse Reactions: Allergies No Known Allergies Allergy (Verified 05/08/16 11:03) Date of admission: 05/28/16 02:33 Primary care physician: Myah Perry CNP Consults: 05/30/16 13:19 Consult to Occupational Therapy [CONS] Routine Comment: Evaluate, develop and implement POC Consult to Physical Therapy [CONS] Routine Comment: Evaluate, develop and implement POC 05/31/16 10:07 consult to integration architect [Consult to Nutrition] [CONS] Routine Comment: may decrease TPN and wean to off Consulting Provider: NUTRITION Reason for Dietary Consult: TPN Start and Manage 05/31/16 11:47 Consult to Invasive Line Access Team [CONS] Routine Reason for Consult: Picc Line Insertion Line Type: PICC 06/07/16 06:00 Consult to Wick And Base Assembler [CONS] Routine Reason for SW Consult: discharge with homehealth 06/07/16 08:18 Consult to Case Management [CONS] Routine Comment: Novel oral anticoagulant therapy co-pay/insurance 06/10/16 07:46 Consult to Wick And Base Assembler [CONS] Routine Reason for SW Consult: Home health Discharging clinician: Emanuel Dolan Anticipated date of discharge: 06/10/16 - Patient Status Disposition: Home Health Service Condition: Fair Functional capacity at discharge: uses cane/walker Overall status at discharge: patient is progressing back to baseline - Discharge Instructions Follow Up With: Eliu Rice DO [Partnered Physician] - 06/18/16 2:50 pm (hospital follow-up 7-10 days) Myah Perry CNP [Primary Care Provider] - 06/17/16 1:30 pm - Diet and Activity Activity: resume usual activities as tolerated Diet: advance to your usual diet Interval History: See below Hospital course: Ms. Rivers is a 65 year old female with PMH of HYpothyroidism, Hypertension, hx of colon CA s/p colectomy with colostomy She presented to emergency department with abdominal pain, nausea, vomiting. She was admitted for management of SBO and pulmonary embolism She has exploratory laparotomy SBR and movement of ostomy done 05/29/16 Since then, she has made remarkable improvement and her she is tolerating orally A CT scan done on exam revealed a sub-segmental sub-massive PE for which the patient was started on heprain drip torrie-operatively and changed to lovenox and Coumadin several days post-op She was reviewed by PT/OT with suggestions for in-patient rehab/ECF, however, patient declined and opted for home care She has a very stable family support Her INR is therapeutic and will be monitored by home care, till she can follow up with PCP Her home medications have been resumed Stable for discharge home with services, follow up with PCP, surgery . - Time Spent with Patient Total time spent providing and/or coordinating discharge services: Greater than 30 minutes - Constitutional Vitals: Temp Pulse Resp BP Pulse Ox 97.8 F 75 20 120/77 95 06/10/16 07:25 06/10/16 07:25 06/10/16 07:25 06/10/16 07:25 06/10/16 07:25 General appearance: Present: A&O X 3, no acute distress, answers questions appropriately - Head Head exam: Present: atraumatic, normocephalic - Eye Eye exam: Present: PERRL, conjuntiva pink, sclera anicteric Pupils: Present: PERRL - Neck Neck exam general surgery: Present: supple, trachea midline. Absent: lymphadenopathy - Respiratory Respiratory exam: Present: CTAB. Absent: accessory muscle use, rales, rhonchi, wheezes - Cardiovascular Cardiovascular exam: Present: RRR, +S1, +S2. Absent: diastolic murmur, gallop, rubs, systolic murmur - GI/Abdominal GI/Abdominal exam: Present: normal bowel sounds, soft, no peritoneal signs. Absent: mass, tenderness Additional comments: Ostomy bag, surrounding dressing clean and dry - Extremities Exam Extremities exam: Present: warm, radial pulses palpable and symetrical. Absent : calf tenderness, cyanotic, pedal edema - Neurological Exam Neurological exam: Present: alert, oriented X3, no focal deficits, strengths equal and symetr throughout. Absent: pronater drift, facial droop, speech deficit - Skin Skin exam: Present: dry, intact - VTE Documentation of Mechanical Device: Intermittent pneumatic compression device
--- NOTE | 2016-06-10 09:50 | Operative Note ---
Date of procedure: 05/29/16 Pre-op diagnosis: Small bowel obstruction Post-op diagnosis: same (Parastomal hernia) Procedure: Diagnostic laparoscopy, laparotomy, small bowel resection, herniorrhaphy and creation of end ileostomy. Anesthesia: TRINI Surgeon: Eliu Rice Estimated blood loss (cc): 200 Condition: stable Disposition: same day Procedure in Detail: After informed consent,the patient was taken to the operating for presumed bowel obstruction. she had undergone a parastomal herniaone month prior. It appears that she has incarcerated small bowel through the repair. The patient's abdomen was prepped and draped. The laparoscopic evaluation was performed first. I attempted to reduce the small bowel with the laparoscope. It was unsuccessful. Therefore a laparotomy was performed. The small bowel was reduced from the hernia site. The previous repair was intact. The bowel herniated through a 2.5 cm defect. Once the small bowel was reduced, there was a serosal tear that was concerning. I felt it best be resected. Therefore a small resection with was performed with CHEN 75 mm stapler x 3. THe common entertomy was closed with a TA 60 stapler. The end ileostomy was taken down and moved to the opposite abdomen. The previous ostomy site was closed with a 1 prolene suture. The new ostomy site was placed through the right abdominal wall. The abdomen was closed with 0 loop PDS suture. The skin was closed with eric. The ileostomy was matured with 3-0 silk suture. She tolerated the operation well.
[2016-06-10] MEDS ORDERED: *HR* Warfarin 5 MG TABLET PO SCH (18:00)
== END 2016-06-10 10:37 | disposition home health service (06) | DRG 329 ==
LOC: EMEROO 20:07 → SUATTDRO 05-28 01:37 → 2NENU 05-28 01:37 → SUATTDRO 05-28 02:33 → 2NENU 05-28 03:15 → ICNU 06-02 12:12 → 2NNU 06-04 06:12 → 3ANU 06-06 19:53
PROVIDERS: ADMIT Internal Medicine; ATTEND Internal Medicine